=== PATIENT | female | born 1955 | race Caucasian/White ===

== ENCOUNTER → 2016-11-24 | Outpatient (CLI) | payer MEDICARE | LOC: RAD 18:25 | PROVIDERS: ATTEND Internal Medicine | DX: C82.38 Follicular lymphoma grade IIIa, lymph nodes of multiple sites (principal) | CPT/HCPCS: 78815; A9552 ==

== ENCOUNTER 2016-12-30 12:23 | Day surgery (SDC) | payer MEDICARE ==
[2016-12-23 10:32] LABS: HEMATOCRIT 43.1 % (36.0-47.0); HEMOGLOBIN 14.4 g/dL (12.0-15.5); HGB HCT DIFFERENCE 0.1; MEAN CORPUSCULAR HEMOGLOBIN 30.7 pg (27.0-33.4); MEAN CORPUSCULAR HGB CONC 33.4 g/dL (32.0-36.0); MEAN CORPUSCULAR VOLUME 92 fl (80-97); RED CELL DISTRIBUTION WIDTH 14.1 % (11.5-14.0); WHITE BLOOD COUNT 5.3 10^3/uL (4.0-10.5)
[2016-12-23 11:05] LABS: ANION GAP 13 (5-19); BLOOD UREA NITROGEN 16 mg/dL (7-20); CALCIUM 9.4 mg/dL (8.4-10.2); CARBON DIOXIDE 26 mmol/L (22-30); CHLORIDE 101 mmol/L (98-107); CREATININE RESULT 0.93 mg/dL (0.52-1.25); GLUCOSE 349 mg/dL (75-110); POTASSIUM 5.1 mmol/L (3.6-5.0); SODIUM 139.9 mmol/L (137-145)
--- NOTE | 2016-12-23 13:33 | EKG REPORT ---
SEVERITY:- ABNORMAL ECG - SINUS RHYTHM ANTERIOR INFARCT, AGE INDETERMINATE CONSIDER OLD INFERIOR MO. : Confirmed by: Reggie Rees MD 23-Dec-2016 13:33:02
[~2016-12-30 12:23] MED LIST: CEFAZOLIN 1 GM/D5W RTU 1 GM/50 ML RTUPB IV PRN; DEXTROSE 5%-1/2 NORMAL SALINE 1,000 ML IV PRN; LIDOCAINE 0.5% INJ-PF (5 MG/ML) 50 ML SDV INJ PRN; RINGERS SOLUTION,LACTATED 1,000 ML IV PRN
[2016-12-30] MEDS ORDERED: BUPIVACAINE HCL 0.25 % INJ/PF (2.5 MG/1 ML) 30 ML VIAL ONE (12:39)
[2016-12-30] MEDS ORDERED: BACITRACIN INJ 50,000 UNIT VIAL ONE (12:40)
[2016-12-30] MEDS ORDERED: LIDOCAINE 0.5% INJ-PF (5 MG/ML) 50 ML SDV ONE (12:40)
[2016-12-30 13:06] LABS: POTASSIUM 4.7 mmol/L (3.6-5.0)
[2016-12-30] MEDS ORDERED: MIDAZOLAM 2 MG/2 ML INJ ONE ×2 (13:40→13:41)
[2016-12-30] MEDS ORDERED: FENTANYL CITRATE INJ/PF 100 MCG/2 ML AMPUL ONE (13:40)
[2016-12-30] MEDS ORDERED: PROPOFOL INJ 200 MG/20 ML VIAL IV ONE ×2 (13:41→15:53)
[2016-12-30] MEDS ORDERED: DIPHENHYDRAMINE HCL 50 MG/ML VIAL IV PRN (14:16)
[2016-12-30] MEDS ORDERED: MORPHINE SULFATE 10 MG/ML INJ IV PRN (14:16)
[2016-12-30] MEDS ORDERED: OXYCODONE-ACETAMINOPHEN 5-325 MG TABLET PO PRN ×2 (14:16)
[2016-12-30] MEDS ORDERED: PROMETHAZINE HCL INJ 25 MG/1 ML VIAL IV PRN ×2 (14:16)
[2016-12-30] MEDS ORDERED: FENTANYL CITRATE INJ/PF 100 MCG/2 ML AMPUL IV PRN ×3 (14:16)
[2016-12-30] MEDS ORDERED: MEPERIDINE HCL/PF INJ 25 MG/1 ML DISP.SYRIN IV PRN (14:16)
--- NOTE | 2016-12-30 15:38 | PDOC DISCHARGE SUMMARY ---
Discharge Summary (SDC) - Discharge Final Diagnosis: #1 B-cell lymphoma. #2 follicular lymphoma. #3 increase body mass index. #4 diabetes mellitus type II. Date of Surgery: 12/30/16 Discharge Date: 12/30/16 Condition: Fair Treatment or Instructions: #1 activities within moderation encouraged. #2 follow up in my office by appointment in about 1 week. Call for appointment. #3 the wounds covered clean and dry until office visit. Instructed in use of negative pressure wound management system. #4 hold off on school/work until evaluation in office. #5 may shower in 48 hours, keep operated area as dry as possible. #6 discharge from ambulatory when ASU criteria met. #7 medications per medication reconciliation sheet. #8 Percocet by prescription.. Also may have one Percocet up to every 2 hours when necessary for pain greater than 4 out of 10 while in the ASU Prescriptions: Oxycodone HCl/Acetaminophen [Percocet 5-325 mg Tablet] 1 tab PO ASDIR PRN #15 tab PRN Reason: Discharge Diet: As Tolerated Respiratory Treatments at Home: Deep Breathing/Coughing Discharge Activity: Activity As Tolerated Report the Following to Your Physician Immediately: Shortness of Breath, Unusual Bleeding
[2016-12-30] MEDS ORDERED: MORPHINE SULFATE 10 MG/ML INJ ONE (15:51)
[2016-12-30] MEDS ORDERED: ACETAMINOPHEN 100 ML IV ONE (15:51)
--- NOTE | 2016-12-30 15:52 | Operative Report ---
Operative Report DATE OF SURGERY: 12/30/16 PREOPERATIVE DIAGNOSIS: #1 B-cell lymphoma. #2 follicular lymphoma. #3 increased body mass index. #4 diabetes mellitus type II. POSTOPERATIVE DIAGNOSIS: #1 B-cell lymphoma. Post ultrasound directed right groin lymph node biopsy. #2 follicular lymphoma. #3 increase body mass index. #4 diabetes mellitus type II. OPERATION: #1 Ultrasound directed needle localization of lymph node in right groin. #2 excision of lymph nodes in right groin on ultrasound guidance. #3 A - pressure wound management system was applied to this wound which is left less than 50 cm. CPT code 12089. SURGEON: BRUCE CRUZ NUTRITION EDUCATOR: none ANESTHESIA: LMAC TISSUE REMOVED OR ALTERED: Lymph nodes from right groin. COMPLICATIONS: None ESTIMATED BLOOD LOSS: 20 mL. INTRAOPERATIVE FINDINGS: Of a very large pannus and very thick layer of adiposity. Was actually palpable. Ultrasound evaluation did reveal an enlarged lymph node 17.8 x 7.2 mm in the very deep subcutaneous tissues, just above the blood vessels and medial. This was needle localized, dissected and sent for gross interpretation. A second lymph node was palpable although smaller and medial to the femoral vein.. This was dissected out and also submitted for pathology. This patient has a history of B-cell lymphoma and follicular lymphoma. She has a had a PET scan recently which showed a suspicious nodule in the right groin. It was not palpable however an enlarged lymph node was identified on ultrasound needle localization directed biopsies therefore done today. With a high confidence of obtaining the involved node. Not 100% however and should this fail to confirm the PET scan finding, another PET scan and her other needle directed biopsy might be indicated. This was discussed with the patient beforehand. Dr. Crescencio Houston evaluated both and touch preps done. He feels a reasonable confidence that involved lymph nodes, if any were obtained. He will do flow cytometry and understands the underlying history and pathology. PROCEDURE: PROCEDURE: The right groin area was prepared with [chlorhexidine] and draped out with sterile linen. After the"universal time-out", in which it was confirmed that the patient [did receive antibiotic], the procedure commenced. The patient was appropriately anesthetized. A steriley sheathed ultrasound transducer was used to evaluate the area and the lymph node previously identified in office again identified. Measuring 17.8 x 7.2 mm and of the deep subcutaneous tissues, medial to the major vessels. The lesion was sketched in marking ink, as well as the proposed incision. A Kopan's needle was now used on the real-time ultrasound guidance to impale the lymph node with the Kopan's wire. Hardcopy documentation preserved. A dilute solution of local anesthesia was generously infiltrated in the skin and subcutaneous tissues above and around the mass. An incision was made transversely . This went through to the subcutaneous tissues. Dissection now proceeded in the subcutaneous tissue circumferentially around the mass and then finally posterior to it. In reference to the Kopan's needle which was grasped with a hemostat. The mass was grasped with. Meticulous hemostasis was done and any branching into the lymph node was clipped. This is in the hopes of reducing the risk of lymphocele or lymphatic drainage. In this way the entire mass was removed and submitted for gross interpretation. The wound was palpated and the ultrasound used to evaluate for any other lymph nodes. Another pertinent lymph node was noted the level of the blood vessels and slightly medial to them. Again local anesthesia was infiltrated at this was dissected out again taking care to clip all ingress and egress of the lymph node. The lymph node was also submitted for gross interpretation. . Meticulous hemostasis was secured in the wound. This was done using [ cautery and also interrupted sutures of 3-0 PDS] and clips. [The wound was irrigated once more with sterile saline solution]. The wound was now closed using deep sutures of 3-0 PDS. This was done to obliterate any space. Single layer of interrupted vertical mattress sutures was used for skin closure. These were of 3-0 PDS]. A pressure wound management system was now applied to the wound. A sterile dressing was applied and the procedure concluded.
[2016-12-30] MEDS ORDERED: OXYCODONE-ACETAMINOPHEN 5-325 MG TABLET ONE (17:04)
[2016-12-30 18:37] VITALS: BP 132/79
== END 2016-12-30 18:25 | disposition home or self-care (01) ==
LOC: OROUT 12:23
PROVIDERS: ATTEND Surgery
PROC: BH49ZZZ Ultrasonography of Abdominal Wall (ICD-10-PCS; 2016-12-30)
PROC: 07BH3ZX Excision of Right Inguinal Lymphatic, Percutaneous Approach, Diagnostic (ICD-10-PCS; principal; 2016-12-30 14:00)
DX: C85.10 Unspecified B-cell lymphoma, unspecified site (principal); C82.90 Follicular lymphoma, unspecified, unspecified site; E11.9 Type 2 diabetes mellitus without complications; L40.50 Arthropathic psoriasis, unspecified; F32.9 Major depressive disorder, single episode, unspecified; I10 Essential (primary) hypertension; Z79.4 Long term (current) use of insulin; Z79.84 Long term (current) use of oral hypoglycemic drugs; Z79.899 Other long term (current) drug therapy
CPT/HCPCS: 93005; 36415 ×2; 88185 ×15; 88184; 82947; 84132; 85027; 80048; 88233; 88262; 88305 ×2; 88329; 71020; 93010; 38505; J2250; J3490 ×2; J0690; J3010; J2270; A9270; J2704; J0131; 400

== ENCOUNTER 2017-11-10 13:58 | Inpatient (IN) | payer MEDICARE ==
[2017-11-10] MEDS ORDERED: NORMAL SALINE 1000 ML 1,000 ML IV ONE ×2 (14:24→16:31)
--- NOTE | 2017-11-10 14:27 | ER Document Report ---
ED General - General Stated Complaint: WEAKNESS Time Seen by Provider: 11/10/17 14:08 Notes: Patient is here because of weakness. She says that she is been "sick" and has not been unable to stand for the past 2 days. She says that she has been laying on the floor of those 2 days. She is only eaten an apple today and not sure if anything yesterday. She lives with her , he was unable to help her stand up. He finally insisted that they called EMS to bring the patient here. Patient does not have any complaints of neurologic deficits that would be due to a stroke. Denies any pains. She is vomited 3 times and had some diarrhea a couple of days before she got weak like now. Denies abdominal pains or chest pains or any cough or cold or chest congestion or shortness of breath. Denies any UTI symptoms. Has not noted any fever. Patient is an insulin-dependent diabetic. Patient has a history of lymphoma treated with chemotherapy 7 years ago. Does not recall being told that she was cancer free, but has not had any follow-ups. PMH: Appendectomy, tubal ligation, IDDM, high cholesterol, psoriasis. TRAVEL OUTSIDE OF THE [place] IN LAST 30 DAYS: No - Related Data Allergies/Adverse Reactions: lisinopril Allergy (Severe, Verified 12/23/16 09:33) cough Past Medical History - Social History Smoking Status: Unknown if Ever Smoked Cigarette use (# per day): No Family History: Reviewed & Not Pertinent - Past Medical History Cardiac Medical History: Reports: Hx Hypertension - Has a prescription for lisinopril but does not take it unless she feels lik Pulmonary Medical History: Denies: Hx Asthma, Hx Bronchitis, Hx COPD, Hx Pneumonia Neurological Medical History: Denies: Hx Cerebrovascular Accident, Hx Seizures Endocrine Medical History: Reports: Hx Diabetes Mellitus Type 1 Malignancy Medical History: Reports: Hx Lymphoma Musculoskeltal Medical History: Reports Hx Arthritis - generalized Past Surgical History: Reports: Hx Appendectomy, Hx Tubal Ligation - Immunizations Hx Diphtheria, Pertussis, Tetanus Vaccination: Yes Hx Pneumococcal Vaccination: 08/25/13 Review of Systems - Review of Systems Notes: REVIEW OF SYSTEMS: CONSTITUTIONAL : Denies fever. Complains of generalized weakness, no unilateral weakness. EENT: Denies eye, ear, nose or mouth or throat pain or other symptoms. CARDIOVASCULAR: Denies chest pain. RESPIRATORY: Denies cough, chest congestion, or shortness of breath. GASTROINTESTINAL: Denies abdominal pain but had diarrhea 3 days ago, a couple of times, and then vomited 3 or 4 times in the past couple of days. GENITOURINARY: Denies difficulty or painful urinating, urinary frequency, blood in urine. MUSCULOSKELETAL: Denies back or neck pain. Denies joint pain or swelling. SKIN: Denies rash or skin lesions. Chronic erythematous rash around both ankles. NEUROLOGICAL: Denies LOC or altered mental status. Denies headache. Complains of generalized weakness and inability to stand or walk. Denies sensory loss or motor deficits. ALL OTHER SYSTEMS REVIEWED AND NEGATIVE. Physical Exam - Vital signs Vitals: BP 133/71 H 11/10/17 14:18 Interpretation: Normal - Notes Notes: PHYSICAL EXAMINATION: GENERAL: Well-appearing, in no acute distress. He knows that it is Friday. No she lives with her . No she is in the hospital. Says her doctor is Dr. Luz. HEAD: Atraumatic, normocephalic. EYES: Pupils equal round and reactive to light, extraocular movements intact. ENT: oropharynx clear without exudates. Moist mucous membranes. NECK: Normal range of motion, supple. LUNGS: Breath sounds clear and equal bilaterally. HEART: Regular rate and rhythm without murmurs. ABDOMEN: Soft, nontender. No guarding or rebound. No masses. BACK: No tenderness throughout entire back. EXTREMITIES: Normal range of motion without pain. Amputation fourth toe of left foot. Dark colored eschars on the bottom of each great toe. No significant infection of the lower legs. NEUROLOGICAL: Normal speech, normal gait. Normal sensory, motor, and reflex exams. Awake, alert, and oriented x3. Cranial nerves normal. PSYCH: Normal mood, normal affect. SKIN: Warm, dry, with erythematous rash around both ankles, the right slightly more so than the left. Course - Re-evaluation Re-evalutation: 11/10/17 15:44 Labs came back with a slightly elevated lactate level at 3.2. Total CPK was 2350, likely from being on the floor for a couple of days. Her white cell count is 18,700 with 79 polys and 15 bands. Chest x-ray negative. Urinalysis not very dramatic. Patient has been cultured all over and I am giving her a liter of saline IV. She is also getting a gram of Rocephin IV. I spoke with Dr. Luz, he will admit the patient to [facility]. - Vital Signs Vital signs: Temp Pulse Resp BP Pulse Ox 98.2 F 92 22 H 134/68 H 95 11/10/17 23:33 11/10/17 23:33 11/10/17 23:33 11/10/17 23:33 11/10/17 23:33 - Laboratory Result Diagrams: 11/10/17 14:50 11/10/17 14:50 Laboratory results interpreted by me: 11/10/17 11/10/17 11/10/17 14:50 14:50 14:50 WBC 18.7 H RDW 14.1 H Seg Neuts % (Manual) 79 H Band Neutrophils % 15 H Lymphocytes % (Manual) 2 L Abs Neuts (Manual) 17.6 H Sodium 133.6 L Chloride 97 L BUN 21 H Est GFR (Non-Af Amer) 51 L Glucose 195 H Lactic Acid AST 77 H Creatine Kinase 2350 H CK-MB (CK-2) 8.16 H Total Protein 5.7 L Albumin 3.2 L Urine Protein Urine Glucose (UA) Urine Ketones Urine Blood 11/10/17 11/10/17 14:50 15:06 WBC RDW Seg Neuts % (Manual) Band Neutrophils % Lymphocytes % (Manual) Abs Neuts (Manual) Sodium Chloride BUN Est GFR (Non-Af Amer) Glucose Lactic Acid 3.2 H AST Creatine Kinase CK-MB (CK-2) Total Protein Albumin Urine Protein >=500 H Urine Glucose (UA) >=500 H Urine Ketones TRACE H Urine Blood LARGE H - Diagnostic Test Radiology reviewed: Image reviewed, Reports reviewed - CT scan of the brain is normal. Radiology results interpreted by me: 11/10/17 16:29 Chest x-ray is normal. Slight elevation of the right hemidiaphragm. - EKG Interpretation by [place] EKG shows normal: Sinus rhythm Rate: Normal - At 99. Rhythm: NSR P Waves: Other - Old anterior/septal infarct. Old inferior infarct. Critical Care Note - Critical Care Note Total time excluding time spent on procedures (mins): 40 Discharge - Discharge Clinical Impression: Sepsis, Dehydration, Prerenal azotemia, Elevated CPK Condition: Serious Disposition: ADMITTED INPATIENT Admitting Provider: [facility] Unit Admitted: IMCU Sepsis - Sepsis Documentation Sepsis Patient: Yes - Vital Signs Vitals: Temp Pulse Resp BP Pulse Ox 98.2 F 92 22 H 134/68 H 95 11/10/17 23:33 11/10/17 23:33 11/10/17 23:33 11/10/17 23:33 11/10/17 23:33 Interpretation: Normal - Cardiovascular Peripheral Pulse Strength: Normal Capillary refill: < 3 seconds Rhythm: Regular Heart Sounds: Normal auscultation - Respiratory Breath Sounds: Clear Respiratory Status: No respiratory distress - Skin Skin Color: Normal
[2017-11-10 14:59] LABS: VENOUS BLOOD BASE EXCESS 2.1 mmol/L; VENOUS BLOOD HCO3 27.2 mmol/L (20-32); VENOUS BLOOD PCO2 44.1 mmHg (35-63); VENOUS BLOOD PH 7.41 (7.30-7.42)
[2017-11-10 15:02] LABS: HEMATOCRIT 41.2 % (36.0-47.0); HEMOGLOBIN 13.7 g/dL (12.0-15.5); MEAN CORPUSCULAR HGB CONC 33.3 g/dL (32.0-36.0); MEAN CORPUSCULAR VOLUME 90 fl (80-97); PLATELET COUNT 253 10^3/uL (150-450); RED BLOOD COUNT 4.57 10^6/uL (3.72-5.28); RED CELL DISTRIBUTION WIDTH 14.1 % (11.5-14.0); WHITE BLOOD COUNT 18.7 10^3/uL (4.0-10.5)
[2017-11-10 15:21] LABS: ALANINE AMINOTRANSFERASE 34 U/L (9-52); ALBUMIN 3.2 g/dL (3.5-5.0); ALKALINE PHOSPHATASE 46 U/L (38-126); ANION GAP 10 (5-19); ASPARTATE AMINO TRANSFERASE 77 U/L (14-36); BILIRUBIN,DIRECT 0.3 mg/dL (0.0-0.4); BILIRUBIN,TOTAL 0.4 mg/dL (0.2-1.3); BLOOD UREA NITROGEN 21 mg/dL (7-20); CALCIUM 8.6 mg/dL (8.4-10.2); CARBON DIOXIDE 27 mmol/L (22-30); CHLORIDE 97 mmol/L (98-107); GLUCOSE 195 mg/dL (75-110); LIPASE 95.9 U/L (23-300); SODIUM 133.6 mmol/L (137-145); TOTAL PROTEIN 5.7 g/dL (6.3-8.2)
[2017-11-10 15:28] LABS: CREATINE KINASE 2350 U/L (30-135)
[2017-11-10 15:31] LABS: ABSOLUTE LYMPHOCYTES# (MANUAL) 0.6 10^3/uL (0.5-4.7); ABSOLUTE MONOCYTES # (MANUAL) 0.6 10^3/uL (0.1-1.4); ABSOLUTE NEUTROPHILS# (MANUAL) 17.6 10^3/uL (1.7-8.2); BASOPHILS % (MANUAL) 0 % (0-2); CREATINE KINASE MB 8.16 ng/mL (<4.55); EOSINOPHILS % (MANUAL) 0 % (0-6); LYMPHOCYTES % (MANUAL) 2 % (13-45); MONOCYTES % (MANUAL) 3 % (3-13); SEGMENTED NEUTROPHILS % (MAN) 79 % (42-78); TOTAL CELLS COUNTED 100
[2017-11-10 15:32] LABS: APPEARANCE,URINE SLIGHTLY-CLOUDY; BILIRUBIN,URINE NEGATIVE (NEGATIVE); COLOR,URINE YELLOW; GLUCOSE, URINE >=500 mg/dL (NEGATIVE); KETONES,URINE TRACE mg/dL (NEGATIVE); LEUKOCYTE ESTERASE,URINE NEGATIVE (NEGATIVE); NITRITE,URINE NEGATIVE (NEGATIVE); PROTEIN,URINE >=500 mg/dL (NEGATIVE); URINE SPECIFIC GRAVITY 1.024; UROBILINOGEN,URINE NEGATIVE mg/dL (<2.0)
[2017-11-10 15:32] LABS: BAND NEUTROPHILS % (MANUAL) 15 % (3-5); HYPOCHROMASIA SLIGHT; PLATELET COMMENT ADEQUATE; POLYCHROMASIA SLIGHT; TOXIC GRANULATION 2+; TOXIC VACUOLATION PRESENT
--- NOTE | 2017-11-10 15:32 | RADIOLOGY REPORT (SQ) ---
EXAM DESCRIPTION: CHEST SINGLE VIEW COMPLETED DATE/TIME: 11/10/2017 3:25 pm REASON FOR STUDY: Generalized weakness, Hx lymphoma treated COMPARISON: Two-view chest 12/23/2016 PET-CT 11/24/2016 EXAM PARAMETERS: NUMBER OF VIEWS: One view. TECHNIQUE: Single frontal radiographic view of the chest acquired. RADIATION DOSE: NA LIMITATIONS: None. FINDINGS: LUNGS AND PLEURA: No opacities, masses or pneumothorax. No pleural effusion. MEDIASTINUM AND HILAR STRUCTURES: No masses. Contour normal. HEART AND VASCULAR STRUCTURES: Heart normal in size. Normal vasculature. BONES: No acute findings. HARDWARE: None in the chest. OTHER: No other significant finding. IMPRESSION: NO ACUTE RADIOGRAPHIC FINDING IN THE CHEST. TECHNICAL DOCUMENTATION: JOB ID: [id number] [employer]- All Rights Reserved Reading location - IP/workstation name: [email or web address]
[2017-11-10 15:33] LABS: TROPONIN I 0.049 ng/mL
[2017-11-10] MEDS ORDERED: CEFTRIAXONE INJ 1000 MG VIAL IV ONE (15:35)
--- NOTE | 2017-11-10 16:03 | RADIOLOGY REPORT (SQ) ---
EXAM DESCRIPTION: CT HEAD WITHOUT COMPLETED DATE/TIME: 11/10/2017 3:52 pm REASON FOR STUDY: Unable to stand, week COMPARISON: None. TECHNIQUE: Axial images acquired through the brain without intravenous contrast. Images reviewed wi th bone, brain and subdural windows. Images stored on PACS. All CT scanners at this facility use dose modulation, iterative reconstruction, and/or weight based d osing when appropriate to reduce radiation dose to as low as reasonably achievable (ALARA). [facility]: Dose Right [facility]: CareDose [facility]: Dose Right [facility]: Teradose 4D [facility]: Smart Funidelia RADIATION DOSE: CT Rad equipment meets quality standard of care and radiation dose reduction techniq ues were employed. CTDIvol: 64.6 mGy. DLP: 1034 mGy-cm. LIMITATIONS: None. FINDINGS: VENTRICLES: Normal size and contour. The cisterns are patent. CEREBRUM: No masses. No hemorrhage. No midline shift. No evidence for acute infarction. Normal gra y/white matter differentiation. No areas of low density in the white matter. CEREBELLUM: No masses. No hemorrhage. No alteration of density. No evidence for acute infarction. EXTRAAXIAL SPACES: No fluid collections. No masses. ORBITS AND GLOBE: No intra- or extraconal masses. Normal contour of globe without masses. CALVARIUM: No fracture. PARANASAL SINUSES: Slight mucoperiosteal thickening involving the bilateral maxillary sinuses and sl ight to mild ethmoid sinus mucosal thickening. SOFT TISSUES: No mass or hematoma. OTHER: Mild atherosclerotic changes involving the cavernous portion of the internal carotid arteries . Atherosclerotic changes involving the intracranial portion of the right vertebral artery. IMPRESSION: NORMAL BRAIN CT WITHOUT CONTRAST. EVIDENCE OF ACUTE STROKE: NO COMMENT: Quality ID # [id number]: Final reports with documentation of one or more dose reduction techniques (e.g., Automated exposure control, adjustment of the mA and/or kV according to patient size, use of iterative reconstruction technique) TECHNICAL DOCUMENTATION: JOB ID: [id number] [employer]- All Rights Reserved Reading location - IP/workstation name: [email or web address]
[2017-11-10] MEDS ORDERED: LEVETIRACETAM 1500 MG/NACL-ISO 1,500 MG/100 ML RTUPB IV ONE (16:34)
[2017-11-10] MEDS ORDERED: LEVETIRACETAM 500 MG/NACL-ISO 500 MG/100 ML RTUPB IV ONE (16:38)
[2017-11-10] MEDS ORDERED: LEVETIRACETAM 500 MG/NACL-ISO 500 MG/100 ML RTUPB IV SCH (16:45)
[2017-11-10] MEDS ORDERED: ACETAMINOPHEN 325 MG TABLET PO PRN (17:07)
[2017-11-10] MEDS ORDERED: DOCUSATE SODIUM 100 MG CAPSULE PO PRN (17:07)
[2017-11-10] MEDS ORDERED: ONDANSETRON HCL INJ/PF 4 MG/2 ML SDV IV PRN (17:07)
[2017-11-10] MEDS ORDERED: GLUCAGON,HUMAN RECOMB 1 MG INJ IM PRN (17:37)
[2017-11-10] MEDS ORDERED: DEXTROSE 50%-WATER SYRINGE 25 GM/50 ML DOSE IV PRN (17:37)
[2017-11-10] MEDS ORDERED: DEXTROSE 40% GEL 15 GM TUBE X 2 PO PRN (17:37)
[2017-11-10] MEDS ORDERED: DEXTROSE 40% GEL 15 GM TUBE PO PRN (17:37)
[2017-11-10] MEDS ORDERED: DEXTROSE 50%-WATER SYRINGE 12.5 GM/25 ML DOSE IV PRN (17:37)
--- NOTE | 2017-11-10 17:37 | PDOC H&P ---
History of Present Illness Admission Date/PCP: 11/10/17 15:58 CRYSTAL MCCURDY Patient complains of: Gen. body weakness and has been lying on the floor for 2 days; had vomiting and diarrhea a couple days before onset of weakness. History of Present Illness: MARIA DEL ROSARIO ANDERSEN is a 62 year old female Past Medical History Cardiac Medical History: Reports: Hypertension - Has a prescription for lisinopril but does not take it unless she feels lik Denies: Coronary Artery Disease, Myocardial Infarction Pulmonary Medical History: Denies: Asthma, Bronchitis, Chronic Obstructive Pulmonary Disease (COPD), Pneumonia Neurological Medical History: Denies: Seizures Endocrine Medical History: Reports: Diabetes Mellitus Type 1 Malignancy Medical History: Reports: Lymphoma Musculoskeltal Medical History: Reports: Arthritis - generalized Hematology: Denies: Anemia Past Surgical History Past Surgical History: Reports: Appendectomy, Tubal Ligation Social History Smoking Status: Unknown if Ever Smoked Family History Family History: Reviewed & Not Pertinent Parental Family History Reviewed: Yes Children Family History Reviewed: Yes Sibling(s) Family History Reviewed.: Yes Medication/Allergy Allergies/Adverse Reactions: lisinopril Allergy (Severe, Verified 12/23/16 09:33) cough Review of Systems All systems: as per PMH Constitutional: PRESENT: anorexia, weakness Eyes: PRESENT: as per HPI Ears: PRESENT: as per HPI Nose, Mouth, and Throat: PRESENT: as per HPI Breasts: PRESENT: as per HPI Cardiovascular: PRESENT: as per HPI Respiratory: PRESENT: as per HPI Gastrointestinal: PRESENT: as per HPI, diarrhea, vomiting Genitourinary: PRESENT: as per HPI Musculoskeletal: PRESENT: as per HPI Integumentary: PRESENT: as per HPI Neurological: PRESENT: as per HPI, weakness Psychiatric: PRESENT: as per HPI Endocrine: PRESENT: as per HPI Physical Exam Vital Signs: Temp Pulse Resp BP Pulse Ox 100.1 F 33 H 110/63 95 11/10/17 16:15 11/10/17 16:12 11/10/17 16:12 11/10/17 16:12 General appearance: PRESENT: no acute distress, cooperative, morbidly obese, well-developed, well-nourished Head exam: PRESENT: atraumatic, normocephalic Eye exam: PRESENT: EOMI, PERRLA Ear exam: PRESENT: normal external ear exam, TM's normal bilaterally Mouth exam: PRESENT: dry mucosa, neck supple, tongue midline Neck exam: PRESENT: full ROM Respiratory exam: PRESENT: clear to auscultation hattie, symmetrical Cardiovascular exam: PRESENT: +S1, +S2 Pulses: PRESENT: +2 pedal pulses bilateral GI/Abdominal exam: PRESENT: normal bowel sounds, soft Rectal exam: PRESENT: deferred Musculoskeletal exam: PRESENT: full ROM Neurological exam: PRESENT: alert, awake, oriented to person, oriented to place , oriented to time Psychiatric exam: PRESENT: normal mood Results Impressions: Chest X-Ray 11/10/17 14:20 IMPRESSION: NO ACUTE RADIOGRAPHIC FINDING IN THE CHEST. Head CT 11/10/17 15:32 IMPRESSION: NORMAL BRAIN CT WITHOUT CONTRAST. EVIDENCE OF ACUTE STROKE: NO Assessment & Plan - Diagnosis (1) Rhabdomyolysis Qualifiers: Encounter type: initial encounter Is this a current diagnosis for this admission?: Yes Plan: Ct with IV fluids normal saline with 20 MEQ of KCL at 125 cc/hr; strict input/ out put chart; Monitor chemistries daily. (2) Gross hematuria Is this a current diagnosis for this admission?: Yes Plan: Ct with IV fluids; F/u renal US and possibly get urology consult. (3) Leukocytosis, unspecified Qualifiers: Leukocytosis type: unspecified Qualified Code(s): D72.829 - Elevated white blood cell count, unspecified Is this a current diagnosis for this admission?: Yes Plan: Ct with Rocephin 1 G daily IV; F/u daily CBC, blood and urine cultures. (4) Diabetes mellitus type 2 in obese Is this a current diagnosis for this admission?: Yes Plan: Ct with slidding scale with humalog insulin [facility] protocol; Hold Lantus 40 iu qhs for now till she starts eating well. 1800 calorie ADA diet. (5) Hypertension Qualifiers: Hypertension type: essential hypertension Qualified Code(s): I10 - Essential (primary) hypertension Is this a current diagnosis for this admission?: Yes Plan: Ct with Losartan 25 mg qd po; 2 g sodium diet. (6) Osteoarthritis Qualifiers: Osteoarthritis location: unspecified site Is this a current diagnosis for this admission?: Yes Plan: Ct with [place] 5/325 1 BID po prn; Tylenol 650 mg q6h prn po. (7) Rhinitis, allergic Qualifiers: Allergic rhinitis trigger: unspecified Is this a current diagnosis for this admission?: Yes Plan: Ct with Claritin 10 mg qd pO; Flonase nasal spray 1 daily. (8) Vitamin D deficiency Is this a current diagnosis for this admission?: Yes Plan: VCT with Vitamin D 27981qy weekly PO. (9) Depression Is this a current diagnosis for this admission?: Yes Plan: Ct with Paxil 20 mg qd PO; Trazodone 100 mg qhs po. (10) Anxiety disorder Is this a current diagnosis for this admission?: Yes Plan: Ct with Clonazepam 1 mg qhs po. (11) DVT prophylaxis Is this a current diagnosis for this admission?: Yes Plan: Ct with SCD; Hold Lovenox due to gross hematuria. - Time Time Spent: 30 to 50 Minutes Medications reviewed and adjusted accordingly: Yes Anticipated discharge: Home Within: within 72 hours - Inpatient Certification Medical Necessity: Failure to Improve With Outpatient Therapy, Significant Comorbidiites Make Outpatient Treatment Too Risky, Need Close Monitoring Due to Risk of Patient Decompensation, Need For IV Fluids, Need For Continuous Telemetry Monitoring, Need for IV Antibiotics, Risk of Complication if Not Cared For in Hospital, Risk of Diagnosis Which Will Require Inpatient Eval/Care/ Monitoring
[2017-11-10] MEDS: POTASSI CL 20 MEQ/NS 1L 1,000 ML IV PRN (18:36)
[2017-11-10] MEDS ORDERED: INSULIN GLARGINE,HUM.REC.ANLOG 1,000 UNIT/10 ML UNIT SUBCUT ONE (20:02)
[2017-11-10] MEDS ORDERED: INSULIN LISPRO 100 UNIT/ML 3 ML VIAL ONE (20:03)
--- NOTE | 2017-11-10 22:45 | RADIOLOGY REPORT (SQ) ---
EXAM DESCRIPTION: [employer] COMPLETED DATE/TIME: 11/10/2017 10:21 pm REASON FOR STUDY: Gross hematuria COMPARISON: Limited by patient position and patient's inability to change position. TECHNIQUE: Dynamic and static grayscale images acquired of the kidneys and bladder and recorded on P ACS. Additional selected color Doppler and spectral images recorded. LIMITATIONS: None. FINDINGS: RIGHT KIDNEY: Normal size, 13.6 cm. No obvious calcifications. No hydronephrosis or hyd roureter. No obvious masses. LEFT KIDNEY: Normal size, 13.5 cm. No obvious masses. No hydronephrosis. No obvious calcification s. BLADDER: Not seen. OTHER FINDINGS: No other significant finding. IMPRESSION: Very limited study with no obvious abnormality or explanation for the gross hematuria. TECHNICAL DOCUMENTATION: JOB ID: [id number] [employer]- All Rights Reserved Reading location - IP/workstation name: [email or web address]
[2017-11-10] MEDS: ZOLPIDEM TARTRATE 5 MG TABLET PO SCH (23:39)
[2017-11-10] MEDS: CLONAZEPAM 1 MG TABLET PO SCH (23:39)
--- NOTE | 2017-11-10 23:46 | EKG REPORT ---
SEVERITY:- ABNORMAL ECG - SINUS RHYTHM INFERIOR INFARCT, AGE INDETERMINATE ANTERIOR INFARCT, AGE INDETERMINATE : Confirmed by: Torie Toribio 10-Nov-2017 23:45:10
[2017-11-11] MEDS: POTASSI CL 20 MEQ/NS 1L 1,000 ML IV PRN ×2 (02:48→12:03)
[2017-11-11 06:32] LABS: ABSOLUTE LYMPHOCYTES (AUTO) 1.2 10^3/uL (0.5-4.7); ABSOLUTE MONOCYTES (AUTO) 0.9 10^3/uL (0.1-1.4); ABSOLUTE NEUT (AUTO) 12.7 10^3/uL (1.7-8.2); BASOPHILS % (AUTO) 0.1 % (0-2); HEMATOCRIT 38.1 % (36.0-47.0); HEMOGLOBIN 12.6 g/dL (12.0-15.5); LYMPHOCYTES % (AUTO) 8.4 % (13-45); MEAN CORPUSCULAR HGB CONC 33.2 g/dL (32.0-36.0); MEAN CORPUSCULAR VOLUME 91 fl (80-97); MONOCYTES % (AUTO) 6.1 % (3-13); PLATELET COUNT 224 10^3/uL (150-450); RED BLOOD COUNT 4.21 10^6/uL (3.72-5.28); RED CELL DISTRIBUTION WIDTH 14.4 % (11.5-14.0); SEGMENTED NEUTROPHILS % (AUTO) 85.4 % (42-78); TOTAL CELLS COUNTED % (AUTO) 100 %; WHITE BLOOD COUNT 14.9 10^3/uL (4.0-10.5)
[2017-11-11] MEDS: LANSOPRAZOLE 30 MG TAB.RAP.DR PO SCH (06:51)
[2017-11-11 07:02] LABS: ALANINE AMINOTRANSFERASE 38 U/L (9-52); ALBUMIN 2.8 g/dL (3.5-5.0); ALKALINE PHOSPHATASE 49 U/L (38-126); ANION GAP 7 (5-19); ASPARTATE AMINO TRANSFERASE 65 U/L (14-36); BILIRUBIN,DIRECT 0.4 mg/dL (0.0-0.4); BILIRUBIN,TOTAL 0.4 mg/dL (0.2-1.3); BLOOD UREA NITROGEN 21 mg/dL (7-20); CALCIUM 7.6 mg/dL (8.4-10.2); CARBON DIOXIDE 25 mmol/L (22-30); CHLORIDE 102 mmol/L (98-107); CHOLESTEROL 215.41 mg/dL (0-200); CREATINE KINASE 1190 U/L (30-135); GLUCOSE 173 mg/dL (75-110); POTASSIUM 4.5 mmol/L (3.6-5.0); SODIUM 133.8 mmol/L (137-145); TOTAL PROTEIN 5.4 g/dL (6.3-8.2); TRIGLYCERIDES 263 mg/dL (<150)
[2017-11-11 07:13] LABS: DIRECT LDL 97 mg/dL (<100)
[2017-11-11 07:15] LABS: VLDL CHOLESTEROL 52.6 mg/dL (10-31)
[2017-11-11] MEDS ORDERED: INSULIN LISPRO 100 UNIT/ML 3 ML VIAL SUBCUT PRN (08:00)
[2017-11-11] MEDS: PAROXETINE HCL 20 MG TABLET PO SCH (09:21)
[2017-11-11] MEDS: HYDROCODONE/ACETAMINOPHEN 5-325 MG TABLET PO PRN ×2 (09:21→21:47)
[2017-11-11] MEDS: LOSARTAN POTASSIUM 25 MG TABLET PO SCH (09:22)
[2017-11-11] MEDS: LORATADINE 10 MG TABLET PO SCH (09:22)
[2017-11-11] MEDS: INSULIN LISPRO 100 UNIT/ML 3 ML VIAL SUBCUT PRN ×2 (09:47→12:19)
[2017-11-11] MEDS ORDERED: CEFTRIAXONE 1 GM/D5W RTU 1 GM/50 ML RTUPB IV SCH (10:00)
[2017-11-11] MEDS ORDERED: PIPERACILLIN SODIUM/TAZOBACTAM 3.375 GM in NORMAL SALINE 100 ML IV SCH (12:00)
[2017-11-11] MEDS: FLUTICASONE NASAL SPRAY 50 MCG/SPRY 120 SPRAY/16 GM NASL SCH (12:03)
[2017-11-11] MEDS: PIPERACILLIN SODIUM/TAZOBACTAM 3.375 GM in NORMAL SALINE 100 ML IV SCH ×3 (12:03→23:12)
--- NOTE | 2017-11-11 13:00 | PDOC PROGRESS REPORT ---
Subjective Progress Note for:: 11/11/17 Subjective:: She is doing much better. Her appetite is improving. Her CK has decreased to 1190 and WBC decreased to 14.9. Her Blood culture grew Gram positive cocci, so will switch her to Zosyn and discontinue Rocephin. Her Renal US did not reveal any abnormality. Reason For Visit: RHABDOMYOLYSIS/GROSS HEMATURIA/LEUKOCYTOSIS Physical Exam Vital Signs: Temp Pulse Resp BP Pulse Ox 99.8 F 95 18 120/58 L 97 11/11/17 07:35 11/11/17 07:35 11/11/17 07:35 11/11/17 07:35 11/11/17 07:35 Intake & Output 11/10/17 11/11/17 11/12/17 06:59 06:59 06:59 Intake Total 1250 Output Total 450 Balance 800 Weight 108.5 kg General appearance: PRESENT: no acute distress, cooperative, obese, well- developed, well-nourished Head exam: PRESENT: atraumatic, normocephalic Eye exam: PRESENT: EOMI, PERRLA Ear exam: PRESENT: normal external ear exam, TM's normal bilaterally Mouth exam: PRESENT: neck supple, tongue midline Neck exam: PRESENT: full ROM Respiratory exam: PRESENT: clear to auscultation hattie, symmetrical Cardiovascular exam: PRESENT: +S1, +S2 Pulses: PRESENT: +2 pedal pulses bilateral GI/Abdominal exam: PRESENT: normal bowel sounds, soft Rectal exam: PRESENT: deferred Extremities exam: PRESENT: full ROM Musculoskeletal exam: PRESENT: full ROM Neurological exam: PRESENT: alert, awake, oriented to person, oriented to place , oriented to time Psychiatric exam: PRESENT: normal mood Results Laboratory Results: 11/11/17 05:55 11/11/17 05:55 11/10/17 11/11/17 11/11/17 19:15 05:55 05:55 WBC 14.9 H RBC 4.21 Hgb 12.6 Hct 38.1 MCV 91 MCH 30.0 MCHC 33.2 RDW 14.4 H Plt Count 224 Seg Neutrophils % 85.4 H Lymphocytes % 8.4 L Monocytes % 6.1 Eosinophils % 0.0 Basophils % 0.1 Absolute Neutrophils 12.7 H Absolute Lymphocytes 1.2 Absolute Monocytes 0.9 Absolute Eosinophils 0.0 Absolute Basophils 0.0 Sodium 133.8 L Potassium 4.5 Chloride 102 Carbon Dioxide 25 Anion Gap 7 BUN 21 H Creatinine 0.97 Est GFR ( Amer) > 60 Est GFR (Non-Af Amer) 58 L Glucose 173 H Lactic Acid 2.0 Calcium 7.6 L Total Bilirubin 0.4 AST 65 H ALT 38 Alkaline Phosphatase 49 Total Protein 5.4 L Albumin 2.8 L Triglycerides 263 H Cholesterol 215.41 H LDL Cholesterol Direct 97 VLDL Cholesterol 52.6 H HDL Cholesterol 31 L TSH 11/11/17 05:55 WBC RBC Hgb Hct MCV MCH MCHC RDW Plt Count Seg Neutrophils % Lymphocytes % Monocytes % Eosinophils % Basophils % Absolute Neutrophils Absolute Lymphocytes Absolute Monocytes Absolute Eosinophils Absolute Basophils Sodium Potassium Chloride Carbon Dioxide Anion Gap BUN Creatinine Est GFR ( Amer) Est GFR (Non-Af Amer) Glucose Lactic Acid Calcium Total Bilirubin AST ALT Alkaline Phosphatase Total Protein Albumin Triglycerides Cholesterol LDL Cholesterol Direct VLDL Cholesterol HDL Cholesterol TSH 2.82 11/11/17 05:55 Creatine Kinase 1190 H Impressions: Renal Ultrasound 11/10/17 00:00 IMPRESSION: Very limited study with no obvious abnormality or explanation for the gross hematuria. Chest X-Ray 11/10/17 14:20 IMPRESSION: NO ACUTE RADIOGRAPHIC FINDING IN THE CHEST. Head CT 11/10/17 15:32 IMPRESSION: NORMAL BRAIN CT WITHOUT CONTRAST. EVIDENCE OF ACUTE STROKE: NO Assessment & Plan - Diagnosis (1) Bacteremia due to Gram-positive bacteria Is this a current diagnosis for this admission?: Yes Plan: Ct with Zosyn 3.375 G q6h IV; Ct with Tylenol 650 mg q6h prn PO. F/u blood culture and urine culture. (2) Rhabdomyolysis Qualifiers: Encounter type: initial encounter Is this a current diagnosis for this admission?: Yes Plan: Ct with IV fluids normal saline with 20 MEQ of KCL at 125 cc/hr; strict input/ out put chart; Monitor chemistries daily. (3) Gross hematuria Is this a current diagnosis for this admission?: Yes Plan: Ct with IV fluids. For repeat Urinalysis later after some days course of antibiotics. (4) Leukocytosis, unspecified Qualifiers: Leukocytosis type: unspecified Qualified Code(s): D72.829 - Elevated white blood cell count, unspecified Is this a current diagnosis for this admission?: Yes Plan: Ct with Zosyn 3.375 G q6h IV; F/u daily CBC, blood and urine cultures. (5) Diabetes mellitus type 2 in obese Is this a current diagnosis for this admission?: Yes Plan: Ct with Humalog 20 units QAC; slidding scale with humalog insulin [facility] protocol ; Hold Lantus 40 iu qhs for now till she starts eating well. 1800 calorie ADA diet. (6) Hypertension Qualifiers: Hypertension type: essential hypertension Qualified Code(s): I10 - Essential (primary) hypertension Is this a current diagnosis for this admission?: Yes Plan: Ct with Losartan 25 mg qd po; 2 g sodium diet. (7) Osteoarthritis Qualifiers: Osteoarthritis location: unspecified site Is this a current diagnosis for this admission?: Yes Plan: Ct with [place] 5/325 1 BID po prn; Tylenol 650 mg q6h prn po. (8) Rhinitis, allergic Qualifiers: Allergic rhinitis trigger: unspecified Is this a current diagnosis for this admission?: Yes Plan: Ct with Claritin 10 mg qd pO; Flonase nasal spray 1 daily. (9) Vitamin D deficiency Is this a current diagnosis for this admission?: Yes Plan: VCT with Vitamin D [id number] weekly PO. (10) Depression Is this a current diagnosis for this admission?: Yes Plan: Ct with Paxil 20 mg qd PO; Trazodone 100 mg qhs po. (11) Anxiety disorder Is this a current diagnosis for this admission?: Yes Plan: Ct with Clonazepam 1 mg qhs po. (12) DVT prophylaxis Is this a current diagnosis for this admission?: Yes Plan: Ct with SCD; Hold Lovenox due to gross hematuria.
[2017-11-11] MEDS: NORMAL SALINE 1000 ML 1,000 ML IV PRN ×2 (13:34→23:10)
[2017-11-11] MEDS: INSULIN LISPRO 100 UNIT/ML 3 ML VIAL SUBCUT SCH (17:56)
[2017-11-11] MEDS ORDERED: CEFTRIAXONE SODIUM 1,000 MG in NORMAL SALINE 100 ML IV SCH (18:00)
[2017-11-11] MEDS: CLONAZEPAM 1 MG TABLET PO SCH (21:46)
[2017-11-11] MEDS: TRAZODONE HCL 50 MG TABLET PO PRN (21:46)
[2017-11-11] MEDS: ZOLPIDEM TARTRATE 5 MG TABLET PO SCH (21:47)
[2017-11-12] MEDS: PIPERACILLIN SODIUM/TAZOBACTAM 3.375 GM in NORMAL SALINE 100 ML IV SCH ×3 (05:37→18:03)
[2017-11-12] MEDS: LANSOPRAZOLE 30 MG TAB.RAP.DR PO SCH (05:37)
[2017-11-12 07:37] LABS: ABSOLUTE BASOPHILS # (AUTO) 0.1 10^3/uL (0.0-0.2); ABSOLUTE EOSINOPHILS # (AUTO) 0.1 10^3/uL (0.0-0.6); ABSOLUTE LYMPHOCYTES (AUTO) 1.1 10^3/uL (0.5-4.7); ABSOLUTE MONOCYTES (AUTO) 0.7 10^3/uL (0.1-1.4); BASOPHILS % (AUTO) 0.7 % (0-2); EOSINOPHILS % (AUTO) 0.9 % (0-6); HEMATOCRIT 36.6 % (36.0-47.0); HEMOGLOBIN 12.2 g/dL (12.0-15.5); LYMPHOCYTES % (AUTO) 11.9 % (13-45); MEAN CORPUSCULAR HEMOGLOBIN 30.2 pg (27.0-33.4); MEAN CORPUSCULAR HGB CONC 33.3 g/dL (32.0-36.0); MEAN CORPUSCULAR VOLUME 91 fl (80-97); MONOCYTES % (AUTO) 7.7 % (3-13); PLATELET COUNT 193 10^3/uL (150-450); RED BLOOD COUNT 4.03 10^6/uL (3.72-5.28); RED CELL DISTRIBUTION WIDTH 14.8 % (11.5-14.0); SEGMENTED NEUTROPHILS % (AUTO) 78.8 % (42-78); TOTAL CELLS COUNTED % (AUTO) 100 %; WHITE BLOOD COUNT 8.9 10^3/uL (4.0-10.5)
[2017-11-12] MEDS: INSULIN LISPRO 100 UNIT/ML 3 ML VIAL SUBCUT SCH ×3 (07:41→18:03)
[2017-11-12 07:56] LABS: ALANINE AMINOTRANSFERASE 37 U/L (9-52); ALBUMIN 2.6 g/dL (3.5-5.0); ALKALINE PHOSPHATASE 53 U/L (38-126); ANION GAP 7 (5-19); ASPARTATE AMINO TRANSFERASE 33 U/L (14-36); BILIRUBIN,DIRECT 0.4 mg/dL (0.0-0.4); BILIRUBIN,TOTAL 0.4 mg/dL (0.2-1.3); BLOOD UREA NITROGEN 17 mg/dL (7-20); CALCIUM 7.5 mg/dL (8.4-10.2); CARBON DIOXIDE 23 mmol/L (22-30); CHLORIDE 108 mmol/L (98-107); CREATINE KINASE 393 U/L (30-135); GLUCOSE 128 mg/dL (75-110); POTASSIUM 4.2 mmol/L (3.6-5.0); SODIUM 138.4 mmol/L (137-145); TOTAL PROTEIN 5.2 g/dL (6.3-8.2)
[2017-11-12] MEDS: ENOXAPARIN SODIUM INJ 40 MG/0.4 ML DISP.SYRIN SUBCUT SCH (09:59)
[2017-11-12] MEDS: NORMAL SALINE 1000 ML 1,000 ML IV PRN ×2 (10:00→21:00)
[2017-11-12] MEDS: LORATADINE 10 MG TABLET PO SCH (10:01)
[2017-11-12] MEDS: PAROXETINE HCL 20 MG TABLET PO SCH (10:01)
[2017-11-12] MEDS: LOSARTAN POTASSIUM 25 MG TABLET PO SCH (10:03)
[2017-11-12] MEDS: FLUTICASONE NASAL SPRAY 50 MCG/SPRY 120 SPRAY/16 GM NASL SCH (10:03)
--- NOTE | 2017-11-12 11:50 | PDOC PROGRESS REPORT ---
Subjective Progress Note for:: 11/12/17 Subjective:: She feels better and her WBC is back to normal- 8.9 and CK is down to 393. We will add Triamcinolone cream for her psoriasis. Reason For Visit: RHABDOMYOLYSIS/GROSS HEMATURIA/LEUKOCYTOSIS Physical Exam Vital Signs: Temp Pulse Resp BP Pulse Ox 97.4 F 87 20 130/55 H 100 11/12/17 07:31 11/12/17 07:31 11/12/17 07:31 11/12/17 07:31 11/12/17 07:31 Intake & Output 11/11/17 11/12/17 11/13/17 06:59 06:59 06:59 Intake Total 1250 2062 Output Total 450 2775 Balance 800 -713 Weight 108.5 kg 116.2 kg General appearance: PRESENT: no acute distress, cooperative, obese, well- developed, well-nourished Head exam: PRESENT: atraumatic, normocephalic Eye exam: PRESENT: EOMI, PERRLA Ear exam: PRESENT: normal external ear exam Mouth exam: PRESENT: neck supple, tongue midline Neck exam: PRESENT: full ROM Cardiovascular exam: PRESENT: +S1, +S2 Pulses: PRESENT: +2 pedal pulses bilateral GI/Abdominal exam: PRESENT: normal bowel sounds, soft Rectal exam: PRESENT: deferred Extremities exam: PRESENT: full ROM Musculoskeletal exam: PRESENT: full ROM Neurological exam: PRESENT: alert, awake, oriented to person, oriented to place , oriented to time Psychiatric exam: PRESENT: normal mood Results Laboratory Results: 11/12/17 07:15 11/12/17 07:15 11/12/17 11/12/17 07:15 07:15 WBC 8.9 RBC 4.03 Hgb 12.2 Hct 36.6 MCV 91 MCH 30.2 MCHC 33.3 RDW 14.8 H Plt Count 193 Seg Neutrophils % 78.8 H Lymphocytes % 11.9 L Monocytes % 7.7 Eosinophils % 0.9 Basophils % 0.7 Absolute Neutrophils 7.0 Absolute Lymphocytes 1.1 Absolute Monocytes 0.7 Absolute Eosinophils 0.1 Absolute Basophils 0.1 Sodium 138.4 Potassium 4.2 Chloride 108 H Carbon Dioxide 23 Anion Gap 7 BUN 17 Creatinine 1.00 Est GFR ( Amer) > 60 Est GFR (Non-Af Amer) 56 L Glucose 128 H Calcium 7.5 L Total Bilirubin 0.4 AST 33 ALT 37 Alkaline Phosphatase 53 Total Protein 5.2 L Albumin 2.6 L 11/11/17 11/12/17 05:55 07:15 Creatine Kinase 1190 H 393 H Impressions: Renal Ultrasound 11/10/17 00:00 IMPRESSION: Very limited study with no obvious abnormality or explanation for the gross hematuria. Chest X-Ray 11/10/17 14:20 IMPRESSION: NO ACUTE RADIOGRAPHIC FINDING IN THE CHEST. Head CT 11/10/17 15:32 IMPRESSION: NORMAL BRAIN CT WITHOUT CONTRAST. EVIDENCE OF ACUTE STROKE: NO Assessment & Plan - Diagnosis (1) Bacteremia due to Gram-positive bacteria Is this a current diagnosis for this admission?: Yes Plan: Ct with Zosyn 3.375 G q6h IV; Ct with Tylenol 650 mg q6h prn PO. F/u blood culture and urine culture. (2) Rhabdomyolysis Qualifiers: Encounter type: initial encounter Is this a current diagnosis for this admission?: Yes Plan: Ct with IV fluids normal saline with 20 MEQ of KCL at 125 cc/hr; strict input/ out put chart; Monitor chemistries daily. (3) Gross hematuria Is this a current diagnosis for this admission?: Yes Plan: Ct with IV fluids. For repeat urinalysis today. (4) Leukocytosis, unspecified Qualifiers: Leukocytosis type: unspecified Qualified Code(s): D72.829 - Elevated white blood cell count, unspecified Is this a current diagnosis for this admission?: Yes Plan: Resolved;Ct with Zosyn 3.375 G q6h IV; F/u daily CBC, final blood and urine cultures. (5) Diabetes mellitus type 2 in obese Is this a current diagnosis for this admission?: Yes Plan: Ct with Humalog 20 units QAC; slidding scale with humalog insulin [facility] protocol ; Hold Lantus 40 iu qhs for now till she starts eating well. 1800 calorie ADA diet. (6) Hypertension Qualifiers: Hypertension type: essential hypertension Qualified Code(s): I10 - Essential (primary) hypertension Is this a current diagnosis for this admission?: Yes Plan: Ct with Losartan 25 mg qd po; 2 g sodium diet. (7) Osteoarthritis Qualifiers: Osteoarthritis location: unspecified site Is this a current diagnosis for this admission?: Yes Plan: Ct with [place] 5/325 1 BID po prn; Tylenol 650 mg q6h prn po. (8) Rhinitis, allergic Qualifiers: Allergic rhinitis trigger: unspecified Is this a current diagnosis for this admission?: Yes Plan: Ct with Claritin 10 mg qd pO; Flonase nasal spray 1 daily. (9) Vitamin D deficiency Is this a current diagnosis for this admission?: Yes Plan: VCT with Vitamin D [id number] weekly PO. (10) Depression Is this a current diagnosis for this admission?: Yes Plan: Ct with Paxil 20 mg qd PO; Trazodone 100 mg qhs po. (11) Anxiety disorder Is this a current diagnosis for this admission?: Yes Plan: Ct with Clonazepam 1 mg qhs po. (12) DVT prophylaxis Is this a current diagnosis for this admission?: Yes Plan: Ct with SCD; Ct with Lovenox 40 mg qd subcut. (13) Psoriasis Is this a current diagnosis for this admission?: Yes Plan: Ct with Triamcinolone cream- apply BID.
[2017-11-12] MEDS: HYDROCODONE/ACETAMINOPHEN 5-325 MG TABLET PO PRN (13:50)
[2017-11-12] MEDS ORDERED: TRIAMCINOLONE ACETONIDE 0.5% CREAM 15 GM TP ONE (14:00)
[2017-11-12] MEDS: TRIAMCINOLONE ACETONIDE 0.5% CREAM 15 GM TP SCH (18:03)
[2017-11-12] MEDS: VANCOMYCIN HCL 1,000 MG in DEXTROSE 5%-WATER 250 ML IV SCH (21:00)
[2017-11-12] MEDS: CLONAZEPAM 1 MG TABLET PO SCH (21:01)
[2017-11-12] MEDS: TRAZODONE HCL 50 MG TABLET PO PRN (21:06)
[2017-11-12] MEDS: ZOLPIDEM TARTRATE 5 MG TABLET PO SCH (21:06)
--- NOTE | 2017-11-12 22:59 | RADIOLOGY REPORT (SQ) ---
EXAM DESCRIPTION: MRI RT LOWER EXTREMITY WITHOUT COMPLETED DATE/TIME: 11/12/2017 8:45 pm REASON FOR STUDY: possible osteomylitis COMPARISON: None. TECHNIQUE: Rightknee images acquired and stored on PACS. Multiplanar images include fat sensitive s equences as T1, water sensitive sequences as FST2 or STIR, cartilage sensitive sequences as FSPD, and gradient echo sequences. LIMITATIONS: None. FINDINGS: JOINT AND BURSAE: Trace effusion. BONE CORTEX AND MARROW: No alteration of signal to suggest marrow replacement. No worrisome bone lesi ons. No occult fracture. No evidence for significant meniscal or ligament tear. SOFT TISSUES: Adjacent muscles and subcutaneous tissues show diffuse soft tissue edema-swelling witho ut defined fluid collection. Normal flow void in popliteal artery and vein. OTHER: No other significant finding. IMPRESSION: Trace effusion. No marrow edema to suggest osteomyelitis. Adjacent muscles and subcutaneous tissues show diffuse soft tissue edema-swelling without defined flu id collection. TECHNICAL DOCUMENTATION: JOB ID: [id number] 2010 [employer]- All Rights Reserved Reading location - IP/workstation name: [email or web address]
[2017-11-13] MEDS: PIPERACILLIN SODIUM/TAZOBACTAM 3.375 GM in NORMAL SALINE 100 ML IV SCH ×3 (00:04→12:46)
[2017-11-13] MEDS: LANSOPRAZOLE 30 MG TAB.RAP.DR PO SCH (05:01)
[2017-11-13 05:44] LABS: ABSOLUTE EOSINOPHILS # (AUTO) 0.1 10^3/uL (0.0-0.6); ABSOLUTE LYMPHOCYTES (AUTO) 1.6 10^3/uL (0.5-4.7); ABSOLUTE MONOCYTES (AUTO) 1.1 10^3/uL (0.1-1.4); ABSOLUTE NEUT (AUTO) 5.3 10^3/uL (1.7-8.2); BASOPHILS % (AUTO) 0.4 % (0-2); EOSINOPHILS % (AUTO) 1.2 % (0-6); HEMATOCRIT 35.7 % (36.0-47.0); HEMOGLOBIN 11.9 g/dL (12.0-15.5); LYMPHOCYTES % (AUTO) 20.1 % (13-45); MEAN CORPUSCULAR HEMOGLOBIN 30.2 pg (27.0-33.4); MEAN CORPUSCULAR HGB CONC 33.3 g/dL (32.0-36.0); MEAN CORPUSCULAR VOLUME 91 fl (80-97); MONOCYTES % (AUTO) 13.1 % (3-13); PLATELET COUNT 204 10^3/uL (150-450); RED BLOOD COUNT 3.94 10^6/uL (3.72-5.28); RED CELL DISTRIBUTION WIDTH 14.5 % (11.5-14.0); SEGMENTED NEUTROPHILS % (AUTO) 65.2 % (42-78); TOTAL CELLS COUNTED % (AUTO) 100 %; WHITE BLOOD COUNT 8.1 10^3/uL (4.0-10.5)
[2017-11-13 05:49] LABS: APPEARANCE,URINE CLEAR; BILIRUBIN,URINE NEGATIVE (NEGATIVE); COLOR,URINE STRAW; GLUCOSE, URINE NEGATIVE (NEGATIVE); KETONES,URINE NEGATIVE (NEGATIVE); LEUKOCYTE ESTERASE,URINE NEGATIVE (NEGATIVE); NITRITE,URINE NEGATIVE (NEGATIVE); PROTEIN,URINE NEGATIVE (NEGATIVE); URINE SPECIFIC GRAVITY 1.009; UROBILINOGEN,URINE NEGATIVE mg/dL (<2.0)
[2017-11-13 06:02] LABS: ANION GAP 10 (5-19)
[2017-11-13 06:09] LABS: ALANINE AMINOTRANSFERASE 37 U/L (9-52); ALBUMIN 2.6 g/dL (3.5-5.0); ALKALINE PHOSPHATASE 59 U/L (38-126); ASPARTATE AMINO TRANSFERASE 25 U/L (14-36); BILIRUBIN,DIRECT 0.2 mg/dL (0.0-0.4); BILIRUBIN,TOTAL 0.5 mg/dL (0.2-1.3); BLOOD UREA NITROGEN 11 mg/dL (7-20); CALCIUM 7.7 mg/dL (8.4-10.2); CARBON DIOXIDE 22 mmol/L (22-30); CHLORIDE 108 mmol/L (98-107); CREATINE KINASE 154 U/L (30-135); GLUCOSE 117 mg/dL (75-110); POTASSIUM 3.7 mmol/L (3.6-5.0); SODIUM 140.3 mmol/L (137-145); TOTAL PROTEIN 4.9 g/dL (6.3-8.2)
[2017-11-13] MEDS: FLUTICASONE NASAL SPRAY 50 MCG/SPRY 120 SPRAY/16 GM NASL SCH (09:14)
[2017-11-13] MEDS: VANCOMYCIN HCL 1,000 MG in DEXTROSE 5%-WATER 250 ML IV SCH ×2 (09:14→19:24)
[2017-11-13] MEDS: TRIAMCINOLONE ACETONIDE 0.5% CREAM 15 GM TP SCH ×2 (09:14→17:33)
[2017-11-13] MEDS: LORATADINE 10 MG TABLET PO SCH (09:14)
[2017-11-13] MEDS: LOSARTAN POTASSIUM 25 MG TABLET PO SCH (09:14)
[2017-11-13] MEDS: PAROXETINE HCL 20 MG TABLET PO SCH (09:14)
[2017-11-13] MEDS: ENOXAPARIN SODIUM INJ 40 MG/0.4 ML DISP.SYRIN SUBCUT SCH (09:14)
[2017-11-13] MEDS: INSULIN LISPRO 100 UNIT/ML 3 ML VIAL SUBCUT SCH ×3 (09:15→17:36)
--- NOTE | 2017-11-13 14:29 | PDOC PROGRESS REPORT ---
Subjective Progress Note for:: 11/13/17 Subjective:: Pt is doing better. Her WBC is 8.1 and CK is 154. The MRI right leg did not show ostemyelitis.Blood culture showed Enterococcus fecalis and pt has been put on Vancomycin and Zosyn. Reason For Visit: RHABDOMYOLYSIS/GROSS HEMATURIA/LEUKOCYTOSIS Physical Exam Vital Signs: Temp Pulse Resp BP Pulse Ox 98.7 F 88 22 H 141/76 H 96 11/13/17 11:59 11/13/17 11:59 11/13/17 11:59 11/13/17 11:59 11/13/17 11:59 Intake & Output 11/12/17 11/13/17 11/14/17 06:59 06:59 06:59 Intake Total 2062 4655 0 Output Total 2775 3050 1000 Balance -713 1605 -1000 Weight 116.2 kg 115.2 kg General appearance: PRESENT: no acute distress, cooperative, well-developed, well-nourished Head exam: PRESENT: atraumatic, normocephalic Eye exam: PRESENT: EOMI, PERRLA Ear exam: PRESENT: normal external ear exam, TM's normal bilaterally Mouth exam: PRESENT: neck supple, tongue midline Neck exam: PRESENT: full ROM Respiratory exam: PRESENT: clear to auscultation [place], symmetrical Cardiovascular exam: PRESENT: +S1, +S2 Pulses: PRESENT: +2 pedal pulses bilateral Vascular exam: PRESENT: normal capillary refill GI/Abdominal exam: PRESENT: normal bowel sounds, soft Rectal exam: PRESENT: deferred Extremities exam: PRESENT: full ROM Musculoskeletal exam: PRESENT: full ROM Neurological exam: PRESENT: alert, awake, oriented to person, oriented to place , oriented to time Psychiatric exam: PRESENT: normal mood Results Laboratory Results: 11/13/17 05:03 11/13/17 05:03 11/13/17 11/13/17 11/13/17 05:00 05:03 05:03 WBC 8.1 RBC 3.94 Hgb 11.9 L Hct 35.7 L MCV 91 MCH 30.2 MCHC 33.3 RDW 14.5 H Plt Count 204 Seg Neutrophils % 65.2 Lymphocytes % 20.1 Monocytes % 13.1 H Eosinophils % 1.2 Basophils % 0.4 Absolute Neutrophils 5.3 Absolute Lymphocytes 1.6 Absolute Monocytes 1.1 Absolute Eosinophils 0.1 Absolute Basophils 0.0 Sodium 140.3 Potassium 3.7 Chloride 108 H Carbon Dioxide 22 Anion Gap 10 BUN 11 Creatinine 0.90 Est GFR ( Amer) > 60 Est GFR (Non-Af Amer) > 60 Glucose 117 H Calcium 7.7 L Total Bilirubin 0.5 AST 25 ALT 37 Alkaline Phosphatase 59 Total Protein 4.9 L Albumin 2.6 L Urine Color STRAW Urine Appearance CLEAR Urine pH 5.0 Ur Specific [place] 1.009 Urine Protein NEGATIVE Urine Glucose (UA) NEGATIVE Urine Ketones NEGATIVE Urine Blood SMALL H Urine Nitrite NEGATIVE Ur Leukocyte Esterase NEGATIVE Urine WBC (Auto) 1 Urine RBC (Auto) 1 11/11/17 11/12/17 11/13/17 05:55 07:15 05:03 Creatine Kinase 1190 H 393 H 154 H Impressions: Renal Ultrasound 11/10/17 00:00 IMPRESSION: Very limited study with no obvious abnormality or explanation for the gross hematuria. Chest X-Ray 11/10/17 14:20 IMPRESSION: NO ACUTE RADIOGRAPHIC FINDING IN THE CHEST. Head CT 11/10/17 15:32 IMPRESSION: NORMAL BRAIN CT WITHOUT CONTRAST. EVIDENCE OF ACUTE STROKE: NO Lower Extremity MRI 11/12/17 00:00 IMPRESSION: Trace effusion. No marrow edema to suggest osteomyelitis. Adjacent muscles and subcutaneous tissues show diffuse soft tissue edema- swelling without defined fluid collection. Assessment & Plan - Diagnosis (1) Bacteremia due to Enterococcus Is this a current diagnosis for this admission?: Yes Plan: ct with Zosyn 3.375 G q6h IV; Vancomycin IV as per [facility] protocol; Tylenol 650 mg q6h po prn. (2) Bacteremia due to Gram-positive bacteria Is this a current diagnosis for this admission?: Yes Plan: Ct with Zosyn 3.375 G q6h IV; Vancomycin IV as per [facility] protocol.Ct with Tylenol 650 mg q6h prn PO. (3) Rhabdomyolysis Qualifiers: Encounter type: initial encounter Is this a current diagnosis for this admission?: Yes Plan: Ct with IV fluids normal saline with 20 MEQ of KCL at 100 cc/hr; strict input/ out put chart; Monitor chemistries daily. (4) Gross hematuria Is this a current diagnosis for this admission?: Yes Plan: Ct with IV fluids. (5) Leukocytosis, unspecified Qualifiers: Leukocytosis type: unspecified Qualified Code(s): D72.829 - Elevated white blood cell count, unspecified Is this a current diagnosis for this admission?: Yes Plan: Resolved;Ct with Zosyn 3.375 G q6h IV; Vancomycin IV as per [facility] protocol. F/u daily CBC. (6) Diabetes mellitus type 2 in obese Is this a current diagnosis for this admission?: Yes Plan: Ct with Humalog 20 units QAC; slidding scale with humalog insulin [facility] protocol ; Hold Lantus 40 iu qhs for now till she starts eating well. 1800 calorie ADA diet. (7) Hypertension Qualifiers: Hypertension type: essential hypertension Qualified Code(s): I10 - Essential (primary) hypertension Is this a current diagnosis for this admission?: Yes Plan: Ct with Losartan 25 mg qd po; 2 g sodium diet. (8) Osteoarthritis Qualifiers: Osteoarthritis location: unspecified site Is this a current diagnosis for this admission?: Yes Plan: Ct with [place] 5/325 1 BID po prn; Tylenol 650 mg q6h prn po. (9) Rhinitis, allergic Qualifiers: Allergic rhinitis trigger: unspecified Is this a current diagnosis for this admission?: Yes Plan: Ct with Claritin 10 mg qd pO; Flonase nasal spray 1 daily. (10) Vitamin D deficiency Is this a current diagnosis for this admission?: Yes Plan: VCT with Vitamin D [id number] weekly PO. (11) Depression Is this a current diagnosis for this admission?: Yes Plan: Ct with Paxil 20 mg qd PO; Trazodone 100 mg qhs po. (12) Anxiety disorder Is this a current diagnosis for this admission?: Yes Plan: Ct with Clonazepam 1 mg qhs po. (13) DVT prophylaxis Is this a current diagnosis for this admission?: Yes Plan: Ct with SCD; Ct with Lovenox 40 mg qd subcut. (14) Psoriasis Is this a current diagnosis for this admission?: Yes Plan: Ct with Triamcinolone cream- apply BID. (15) Morbid obesity Is this a current diagnosis for this admission?: Yes Plan: Ct with dietary counseling and exercise.
[2017-11-13] MEDS: POTASSI CL 20 MEQ/NS 1L 1,000 ML IV PRN (18:43)
--- NOTE | 2017-11-13 19:55 | XCELERA REPORT ---
[address] [address] Transthoracic Echocardiogram Report Name: MARIA DEL ROSARIO ANDERSEN Age: 62 yrs Gender: Female : 1955 Patient Status: Inpatient Patient Location: [address] [place] [address] Study Date: 11/13/2017 02:13 PM Height: 65 in Weight: 256 lb BSA: 2.2 m2 Procedure: A complete two-dimensional transthoracic echocardiogram was performed (2D, M-mode, spectral and color flow Doppler). The study was technically difficult with many images being suboptimal in quality. Reason For Study: possible endocarditis Ordering Physician: CRYSTAL MCCURDY Performed By: Nita Mast Interpretation Summary The study was technically difficult with many images being suboptimal in quality. The left ventricular ejection fraction is preserved. Consider additional methods to assess LVEF such as MUGA scan, CTA heart, cardiac MRI, PHYLLIS, etc. if clinically indicated. There is mild concentric left ventricular hypertrophy. The left ventricle is grossly normal size. LV diastolic function could not be adequately assessed. Regional wall motion abnormalities cannot be excluded due to limited visualization. Right ventricular function cannot be assessed due to poor image quality. The right ventricle is not well visualized secondary to technical limitations The left atrium is mildly dilated. The mitral valve is not well visualized. There is no mitral valve stenosis. There is a trace to mild amount of mitral regurgitation The aortic valve is not well visualized secondary to technical limitations There is no aortic valve stenosis No aortic regurgitation is present. There is a trace to mild amount of tricuspid regurgitation There is mild pulmonary hypertension by echo Right ventricular systolic pressure is estimated to be elevated at 30- 40mmHg. The aortic root is not well visualized but is probably normal size. The inferior vena cava was not well visualized There is no pericardial effusion. Consider PHYLLIS if clinically indicated. Vegetation cannot be excluded on the basis of this study. MMode/2D Measurements & Calculations RVDd: 1.8 cm LVIDd: 5.1 cm FS: 30.8 % Ao root diam: 2.8 cm IVSd: 1.3 cm LVIDs: 3.5 cm EDV(Teich): 122.3 ml LVPWd: 1.3 cm ESV(Teich): 51.2 ml Ao root area: 6.2 cm2 EF(Teich): 58.1 % Doppler Measurements & Calculations MV E max shantell: MV dec slope: Ao V2 max: LV V1 max P.2 cm/sec 121.8 cm/sec 2.0 mmHg MV A max shantell: 824.6 cm/sec2 Ao max PG: LV V1 max: 64.8 cm/sec MV dec time: 5.9 mmHg 71.4 cm/sec MV E/A: 2.1 0.17 sec PA V2 max: TR max shantell: 90.5 cm/sec 280.3 cm/sec PA max P.3 mmHg TR max P.7 mmHg Left Ventricle The left ventricle is grossly normal size. There is mild concentric left ventricular hypertrophy. The left ventricular ejection fraction is preserved. Consider additional methods to assess LVEF such as MUGA scan, CTA heart, cardiac MRI, PHYLLIS, etc. if clinically indicated. LV diastolic function could not be adequately assessed. Regional wall motion abnormalities cannot be excluded due to limited visualization. Right Ventricle The right ventricle is not well visualized secondary to technical limitations. Right ventricular function cannot be assessed due to poor image quality. Atria Right atrium not well visualized secondary to technical limitations. The left atrium is mildly dilated. Mitral Valve The mitral valve is not well visualized. There is no mitral valve stenosis. There is a trace to mild amount of mitral regurgitation. Aortic Valve The aortic valve is not well visualized secondary to technical limitations. There is no aortic valve stenosis. No aortic regurgitation is present. Tricuspid Valve The tricuspid valve is not well visualized secondary to technical limitations. There is no tricuspid stenosis. There is a trace to mild amount of tricuspid regurgitation. There is mild pulmonary hypertension by echo. Right ventricular systolic pressure is estimated to be elevated at 30-40mmHg. Pulmonic Valve The pulmonic valve is not well visualized. Great Vessels The aortic root is not well visualized but is probably normal size. The inferior vena cava was not well visualized. Effusions There is no pericardial effusion. Incidental Findings Consider PHYLLIS if clinically indicated. Vegetation cannot be excluded on the basis of this study. : CRYSTAL MCCURDY > Torie Toribio
[2017-11-13] MEDS: TRAZODONE HCL 50 MG TABLET PO PRN (21:08)
[2017-11-13] MEDS: CLONAZEPAM 1 MG TABLET PO SCH (21:08)
[2017-11-13] MEDS: ZOLPIDEM TARTRATE 5 MG TABLET PO SCH (21:09)
[2017-11-14] MEDS: LANSOPRAZOLE 30 MG TAB.RAP.DR PO SCH (05:34)
[2017-11-14] MEDS: POTASSI CL 20 MEQ/NS 1L 1,000 ML IV PRN ×2 (06:27→18:41)
[2017-11-14 08:42] LABS: VANCOMYCIN,TROUGH 8.3 ug/mL (5.0-20.0)
[2017-11-14] MEDS: INSULIN LISPRO 100 UNIT/ML 3 ML VIAL SUBCUT SCH ×3 (08:57→17:05)
[2017-11-14] MEDS: VANCOMYCIN HCL 1,000 MG in DEXTROSE 5%-WATER 250 ML IV SCH ×2 (08:59→18:39)
[2017-11-14] MEDS: LOSARTAN POTASSIUM 25 MG TABLET PO SCH (09:23)
[2017-11-14] MEDS: FLUTICASONE NASAL SPRAY 50 MCG/SPRY 120 SPRAY/16 GM NASL SCH (09:24)
[2017-11-14] MEDS: LORATADINE 10 MG TABLET PO SCH (09:25)
[2017-11-14] MEDS: TRIAMCINOLONE ACETONIDE 0.5% CREAM 15 GM TP SCH ×2 (09:25→18:40)
[2017-11-14] MEDS: PAROXETINE HCL 20 MG TABLET PO SCH (09:26)
[2017-11-14] MEDS: ENOXAPARIN SODIUM INJ 40 MG/0.4 ML DISP.SYRIN SUBCUT SCH (09:27)
[2017-11-14 10:51] LABS: ABSOLUTE BASOPHILS # (AUTO) 0.1 10^3/uL (0.0-0.2); ABSOLUTE EOSINOPHILS # (AUTO) 0.1 10^3/uL (0.0-0.6); ABSOLUTE LYMPHOCYTES (AUTO) 1.8 10^3/uL (0.5-4.7); ABSOLUTE MONOCYTES (AUTO) 1.1 10^3/uL (0.1-1.4); ABSOLUTE NEUT (AUTO) 5.1 10^3/uL (1.7-8.2); BASOPHILS % (AUTO) 0.7 % (0-2); EOSINOPHILS % (AUTO) 1.5 % (0-6); HEMATOCRIT 34.8 % (36.0-47.0); HEMOGLOBIN 11.5 g/dL (12.0-15.5); LYMPHOCYTES % (AUTO) 21.8 % (13-45); MEAN CORPUSCULAR HGB CONC 33.1 g/dL (32.0-36.0); MEAN CORPUSCULAR VOLUME 91 fl (80-97); MONOCYTES % (AUTO) 13.5 % (3-13); PLATELET COUNT 233 10^3/uL (150-450); RED BLOOD COUNT 3.84 10^6/uL (3.72-5.28); RED CELL DISTRIBUTION WIDTH 14.6 % (11.5-14.0); SEGMENTED NEUTROPHILS % (AUTO) 62.5 % (42-78); TOTAL CELLS COUNTED % (AUTO) 100 %; WHITE BLOOD COUNT 8.2 10^3/uL (4.0-10.5)
[2017-11-14 11:12] LABS: ALANINE AMINOTRANSFERASE 33 U/L (9-52); ALBUMIN 2.5 g/dL (3.5-5.0); ALKALINE PHOSPHATASE 78 U/L (38-126); ANION GAP 9 (5-19); ASPARTATE AMINO TRANSFERASE 26 U/L (14-36); BILIRUBIN,DIRECT 0.4 mg/dL (0.0-0.4); BILIRUBIN,TOTAL 0.6 mg/dL (0.2-1.3); BLOOD UREA NITROGEN 9 mg/dL (7-20); CALCIUM 8.1 mg/dL (8.4-10.2); CARBON DIOXIDE 25 mmol/L (22-30); CHLORIDE 107 mmol/L (98-107); GLUCOSE 153 mg/dL (75-110); POTASSIUM 3.9 mmol/L (3.6-5.0); SODIUM 140.5 mmol/L (137-145); TOTAL PROTEIN 4.9 g/dL (6.3-8.2)
--- NOTE | 2017-11-14 12:22 | PDOC PROGRESS REPORT ---
Subjective Progress Note for:: 11/14/17 Subjective:: She is doing better; right lower extremity is less painful. ECHO(TTE) showed no vegetations or features suggestive of endocarditis. We will get PT/OT consult. Reason For Visit: RHABDOMYOLYSIS/GROSS HEMATURIA/LEUKOCYTOSIS Physical Exam Vital Signs: Temp Pulse Resp BP Pulse Ox 97.6 F 69 18 131/67 H 97 11/14/17 07:40 11/14/17 07:40 11/14/17 07:40 11/14/17 07:40 11/14/17 07:40 Intake & Output 11/13/17 11/14/17 11/15/17 06:59 06:59 06:59 Intake Total 4655 3072 Output Total 3050 2700 Balance 1605 372 Weight 115.2 kg 113.3 kg General appearance: PRESENT: no acute distress, cooperative, obese, well- developed, well-nourished Head exam: PRESENT: atraumatic, normocephalic Eye exam: PRESENT: EOMI, PERRLA Ear exam: PRESENT: normal external ear exam, TM's normal bilaterally Mouth exam: PRESENT: neck supple, tongue midline Neck exam: PRESENT: full ROM Respiratory exam: PRESENT: clear to auscultation hattie, symmetrical Cardiovascular exam: PRESENT: +S1, +S2 Pulses: PRESENT: +2 pedal pulses bilateral GI/Abdominal exam: PRESENT: normal bowel sounds, soft Rectal exam: PRESENT: deferred Additional comments: Mild tenderness right leg, mildly warm to touch, no longer swollen, limitation of movement. Musculoskeletal exam: PRESENT: full ROM Neurological exam: PRESENT: alert, awake, oriented to person, oriented to place , oriented to time Psychiatric exam: PRESENT: normal mood Results Laboratory Results: 11/14/17 07:56 11/14/17 07:56 11/14/17 11/14/17 11/14/17 07:56 07:56 07:56 WBC 8.2 RBC 3.84 Hgb 11.5 L Hct 34.8 L MCV 91 MCH 30.0 MCHC 33.1 RDW 14.6 H Plt Count 233 Seg Neutrophils % 62.5 Lymphocytes % 21.8 Monocytes % 13.5 H Eosinophils % 1.5 Basophils % 0.7 Absolute Neutrophils 5.1 Absolute Lymphocytes 1.8 Absolute Monocytes 1.1 Absolute Eosinophils 0.1 Absolute Basophils 0.1 Sodium 140.5 Potassium 3.9 Chloride 107 Carbon Dioxide 25 Anion Gap 9 BUN 9 Creatinine 0.79 0.79 Est GFR ( Amer) > 60 > 60 Est GFR (Non-Af Amer) > 60 > 60 Glucose 153 H Calcium 8.1 L Total Bilirubin 0.6 AST 26 ALT 33 Alkaline Phosphatase 78 Total Protein 4.9 L Albumin 2.5 L 11/11/17 11/12/17 11/13/17 05:55 07:15 05:03 Creatine Kinase 1190 H 393 H 154 H Impressions: Renal Ultrasound 11/10/17 00:00 IMPRESSION: Very limited study with no obvious abnormality or explanation for the gross hematuria. Chest X-Ray 11/10/17 14:20 IMPRESSION: NO ACUTE RADIOGRAPHIC FINDING IN THE CHEST. Head CT 11/10/17 15:32 IMPRESSION: NORMAL BRAIN CT WITHOUT CONTRAST. EVIDENCE OF ACUTE STROKE: NO Lower Extremity MRI 11/12/17 00:00 IMPRESSION: Trace effusion. No marrow edema to suggest osteomyelitis. Adjacent muscles and subcutaneous tissues show diffuse soft tissue edema- swelling without defined fluid collection. Assessment & Plan - Diagnosis (1) Cellulitis of right lower extremity Is this a current diagnosis for this admission?: Yes Plan: Ct with Vancomycin IV as per OM protocol; Ct with Penicillin K-K 500 mg q6h po ; Tylenol 650 mg q6h prn po for pain. (2) Bacteremia due to Enterococcus Is this a current diagnosis for this admission?: Yes Plan: ct with Vancomycin IV as per OM protocol; Penicillin- V K 500 mg q6h po; Tylenol 650 mg q6h po prn. (3) Bacteremia due to Gram-positive bacteria Is this a current diagnosis for this admission?: Yes Plan: Ct with Vancomycin IV as per OM protocol; Penicillin- V K 500 mg q6h po;Ct with Tylenol 650 mg q6h prn PO. (4) Rhabdomyolysis Qualifiers: Encounter type: initial encounter Is this a current diagnosis for this admission?: Yes Plan: Ct with IV fluids normal saline with 20 MEQ of KCL at 100 cc/hr; strict input/ out put chart; Monitor chemistries daily. (5) Gross hematuria Is this a current diagnosis for this admission?: Yes Plan: Resolved; Renal US showed no abnormality. (6) Leukocytosis, unspecified Qualifiers: Leukocytosis type: unspecified Qualified Code(s): D72.829 - Elevated white blood cell count, unspecified Is this a current diagnosis for this admission?: Yes Plan: Resolved;Ct with Vancomycin IV as per OM protocol. Ct with Penicillin -V K 500 mg q6h po; F/u daily CBC. (7) Diabetes mellitus type 2 in obese Is this a current diagnosis for this admission?: Yes Plan: Ct with Humalog 20 units QAC; slidding scale with humalog insulin [facility] protocol ; Hold Lantus 40 iu qhs for now till she starts eating well. 1800 calorie ADA diet. (8) Hypertension Qualifiers: Hypertension type: essential hypertension Qualified Code(s): I10 - Essential (primary) hypertension Is this a current diagnosis for this admission?: Yes Plan: Ct with Losartan 25 mg qd po; 2 g sodium diet. (9) Osteoarthritis Qualifiers: Osteoarthritis location: unspecified site Is this a current diagnosis for this admission?: Yes Plan: Ct with [place] 5/325 1 BID po prn; Tylenol 650 mg q6h prn po. (10) Rhinitis, allergic Qualifiers: Allergic rhinitis trigger: unspecified Is this a current diagnosis for this admission?: Yes Plan: Ct with Claritin 10 mg qd pO; Flonase nasal spray 1 daily. (11) Vitamin D deficiency Is this a current diagnosis for this admission?: Yes Plan: VCT with Vitamin D 15671tw weekly PO. (12) Depression Is this a current diagnosis for this admission?: Yes Plan: Ct with Paxil 20 mg qd PO; Trazodone 100 mg qhs po. (13) Anxiety disorder Is this a current diagnosis for this admission?: Yes Plan: Ct with Clonazepam 1 mg qhs po. (14) DVT prophylaxis Is this a current diagnosis for this admission?: Yes Plan: Ct with SCD; Ct with Lovenox 40 mg qd subcut. (15) Psoriasis Is this a current diagnosis for this admission?: Yes Plan: Ct with Triamcinolone cream- apply BID. (16) Morbid obesity Is this a current diagnosis for this admission?: Yes Plan: Ct with dietary counseling and exercise.
[2017-11-14] MEDS: PENICILLIN V POTASSIUM 500 MG TABLET PO SCH ×2 (18:39→23:19)
[2017-11-14] MEDS: TRAZODONE HCL 50 MG TABLET PO PRN (23:19)
[2017-11-14] MEDS: CLONAZEPAM 1 MG TABLET PO SCH (23:19)
[2017-11-14] MEDS: ZOLPIDEM TARTRATE 5 MG TABLET PO SCH (23:20)
[2017-11-15] MEDS: VANCOMYCIN HCL 1,000 MG in DEXTROSE 5%-WATER 250 ML IV SCH ×3 (01:11→18:06)
[2017-11-15] MEDS: PENICILLIN V POTASSIUM 500 MG TABLET PO SCH ×4 (05:17→23:57)
[2017-11-15] MEDS: LANSOPRAZOLE 30 MG TAB.RAP.DR PO SCH (05:17)
[2017-11-15] MEDS: POTASSI CL 20 MEQ/NS 1L 1,000 ML IV PRN (05:17)
[2017-11-15] MEDS: INSULIN LISPRO 100 UNIT/ML 3 ML VIAL SUBCUT SCH ×3 (10:25→18:07)
[2017-11-15] MEDS: ENOXAPARIN SODIUM INJ 40 MG/0.4 ML DISP.SYRIN SUBCUT SCH (10:26)
[2017-11-15] MEDS: PAROXETINE HCL 20 MG TABLET PO SCH (10:27)
[2017-11-15] MEDS: TRIAMCINOLONE ACETONIDE 0.5% CREAM 15 GM TP SCH ×2 (10:28→18:06)
[2017-11-15] MEDS: LOSARTAN POTASSIUM 25 MG TABLET PO SCH (10:28)
[2017-11-15] MEDS: LORATADINE 10 MG TABLET PO SCH (10:35)
[2017-11-15] MEDS: FLUTICASONE NASAL SPRAY 50 MCG/SPRY 120 SPRAY/16 GM NASL SCH (10:35)
[2017-11-15 11:06] LABS: VANCOMYCIN,TROUGH 14.7 ug/mL (5.0-20.0)
--- NOTE | 2017-11-15 17:01 | PDOC PROGRESS REPORT ---
Subjective Progress Note for:: 11/15/17 Subjective:: Pt states that her left hand is swollen and red. was at bedside and asked when pt was going to go home. Reason For Visit: RHABDOMYOLYSIS/GROSS HEMATURIA/LEUKOCYTOSIS Physical Exam Vital Signs: Temp Pulse Resp BP Pulse Ox 97.7 F 79 18 152/77 H 94 11/15/17 11:39 11/15/17 14:00 11/15/17 11:39 11/15/17 11:39 11/15/17 11:39 Intake & Output 11/14/17 11/15/17 11/16/17 06:59 06:59 06:59 Intake Total 3072 3805 473 Output Total 2700 2500 1000 Balance 372 1305 -527 Weight 113.3 kg 114.2 kg General appearance: PRESENT: no acute distress, well-developed, well-nourished Head exam: PRESENT: atraumatic, normocephalic Eye exam: PRESENT: conjunctiva pink, EOMI. ABSENT: scleral icterus Ear exam: PRESENT: normal external ear exam Mouth exam: PRESENT: moist, tongue midline Neck exam: ABSENT: carotid bruit, JVD, lymphadenopathy, thyromegaly Respiratory exam: PRESENT: clear to auscultation hattie. ABSENT: rales, rhonchi, wheezes Cardiovascular exam: PRESENT: RRR. ABSENT: diastolic murmur, rubs, systolic murmur Pulses: PRESENT: normal dorsalis pedis pul Vascular exam: PRESENT: normal capillary refill GI/Abdominal exam: PRESENT: normal bowel sounds, soft. ABSENT: distended, guarding, mass, organolmegaly, rebound, tenderness Rectal exam: PRESENT: deferred Extremities exam: PRESENT: full ROM, tenderness - left 4th metacarpal joint tenderness to palpation.. ABSENT: calf tenderness, clubbing, pedal edema Musculoskeletal exam: PRESENT: full ROM Neurological exam: PRESENT: alert, awake, oriented to person, oriented to place , oriented to time, oriented to situation, CN II-XII grossly intact. ABSENT: motor sensory deficit Psychiatric exam: PRESENT: appropriate affect, normal mood. ABSENT: homicidal ideation, suicidal ideation Skin exam: PRESENT: dry, intact, warm. ABSENT: cyanosis, rash Results Laboratory Results: 11/14/17 07:56 11/14/17 07:56 11/11/17 11/12/17 11/13/17 05:55 07:15 05:03 Creatine Kinase 1190 H 393 H 154 H Impressions: Renal Ultrasound 11/10/17 00:00 IMPRESSION: Very limited study with no obvious abnormality or explanation for the gross hematuria. Chest X-Ray 11/10/17 14:20 IMPRESSION: NO ACUTE RADIOGRAPHIC FINDING IN THE CHEST. Head CT 11/10/17 15:32 IMPRESSION: NORMAL BRAIN CT WITHOUT CONTRAST. EVIDENCE OF ACUTE STROKE: NO Lower Extremity MRI 11/12/17 00:00 IMPRESSION: Trace effusion. No marrow edema to suggest osteomyelitis. Adjacent muscles and subcutaneous tissues show diffuse soft tissue edema- swelling without defined fluid collection. Assessment & Plan - Diagnosis (1) Left hand pain Is this a current diagnosis for this admission?: Yes Plan: Will check Xray of left hand to evaluate for osteo. Will continue current antibiotics. (2) Cellulitis of right lower extremity Is this a current diagnosis for this admission?: Yes Plan: Will continue antibiotics. (3) Bacteremia due to Enterococcus Is this a current diagnosis for this admission?: Yes Plan: Will continue antibiotics. (4) Leukocytosis, unspecified Qualifiers: Leukocytosis type: unspecified Qualified Code(s): D72.829 - Elevated white blood cell count, unspecified Is this a current diagnosis for this admission?: Yes Plan: Resolved. (5) Osteoarthritis Qualifiers: Osteoarthritis location: unspecified site Is this a current diagnosis for this admission?: Yes Plan: Will continue current medications (6) Rhabdomyolysis Qualifiers: Encounter type: initial encounter Is this a current diagnosis for this admission?: Yes Plan: Resolved. (7) Rhinitis, allergic Qualifiers: Allergic rhinitis trigger: unspecified Is this a current diagnosis for this admission?: Yes Plan: supportive care. - Time Time Spent with patient: 15-24 minutes
--- NOTE | 2017-11-15 18:04 | RADIOLOGY REPORT (SQ) ---
EXAM DESCRIPTION: HAND LEFT 3 VIEWS COMPLETED DATE/TIME: 11/15/2017 5:56 pm REASON FOR STUDY: Left hand 4th metacarpal joint COMPARISON: None. EXAM PARAMETERS: NUMBER OF VIEWS: Three views. TECHNIQUE: AP, lateral and oblique radiographic images acquired of the left hand. LIMITATIONS: None. FINDINGS: MINERALIZATION: Normal. BONES: No acute fracture or dislocation. No worrisome bone lesions. JOINTS: No effusions. SOFT TISSUES: No soft tissue swelling. No foreign body. OTHER: IV visualized. IMPRESSION: NO RADIOGRAPHIC EVIDENCE OF ACUTE INJURY. TECHNICAL DOCUMENTATION: JOB ID: [id number] [employer]- All Rights Reserved Reading location - IP/workstation name: [email or web address]
[2017-11-15] MEDS: CLONAZEPAM 1 MG TABLET PO SCH (21:40)
[2017-11-15] MEDS: TRAZODONE HCL 50 MG TABLET PO PRN (21:40)
[2017-11-15] MEDS: ZOLPIDEM TARTRATE 5 MG TABLET PO SCH (21:41)
[2017-11-16] MEDS: VANCOMYCIN HCL 1,000 MG in DEXTROSE 5%-WATER 250 ML IV SCH ×3 (01:55→18:13)
[2017-11-16] MEDS: POTASSI CL 20 MEQ/NS 1L 1,000 ML IV PRN ×2 (01:55→15:14)
[2017-11-16] MEDS: PENICILLIN V POTASSIUM 500 MG TABLET PO SCH ×4 (06:15→23:03)
[2017-11-16] MEDS: LANSOPRAZOLE 30 MG TAB.RAP.DR PO SCH (06:15)
[2017-11-16 07:21] LABS: ABSOLUTE BASOPHILS # (AUTO) 0.1 10^3/uL (0.0-0.2); ABSOLUTE EOSINOPHILS # (AUTO) 0.2 10^3/uL (0.0-0.6); ABSOLUTE LYMPHOCYTES (AUTO) 1.5 10^3/uL (0.5-4.7); ABSOLUTE MONOCYTES (AUTO) 0.7 10^3/uL (0.1-1.4); ABSOLUTE NEUT (AUTO) 3.5 10^3/uL (1.7-8.2); BASOPHILS % (AUTO) 0.9 % (0-2); EOSINOPHILS % (AUTO) 2.6 % (0-6); HEMATOCRIT 36.6 % (36.0-47.0); HEMOGLOBIN 12.2 g/dL (12.0-15.5); LYMPHOCYTES % (AUTO) 25.8 % (13-45); MEAN CORPUSCULAR HEMOGLOBIN 30.2 pg (27.0-33.4); MEAN CORPUSCULAR HGB CONC 33.4 g/dL (32.0-36.0); MEAN CORPUSCULAR VOLUME 91 fl (80-97); PLATELET COUNT 308 10^3/uL (150-450); RED BLOOD COUNT 4.04 10^6/uL (3.72-5.28); RED CELL DISTRIBUTION WIDTH 14.5 % (11.5-14.0); SEGMENTED NEUTROPHILS % (AUTO) 59.7 % (42-78); TOTAL CELLS COUNTED % (AUTO) 100 %; WHITE BLOOD COUNT 5.9 10^3/uL (4.0-10.5)
[2017-11-16 07:35] LABS: ALANINE AMINOTRANSFERASE 50 U/L (9-52); ALBUMIN 2.8 g/dL (3.5-5.0); ALKALINE PHOSPHATASE 104 U/L (38-126); ANION GAP 8 (5-19); ASPARTATE AMINO TRANSFERASE 27 U/L (14-36); BILIRUBIN,DIRECT 0.3 mg/dL (0.0-0.4); BILIRUBIN,TOTAL 0.5 mg/dL (0.2-1.3); BLOOD UREA NITROGEN 10 mg/dL (7-20); CALCIUM 8.7 mg/dL (8.4-10.2); CARBON DIOXIDE 27 mmol/L (22-30); CHLORIDE 104 mmol/L (98-107); GLUCOSE 201 mg/dL (75-110); POTASSIUM 4.2 mmol/L (3.6-5.0); SODIUM 139.1 mmol/L (137-145); TOTAL PROTEIN 5.2 g/dL (6.3-8.2)
[2017-11-16] MEDS: INSULIN LISPRO 100 UNIT/ML 3 ML VIAL SUBCUT SCH ×3 (09:17→19:16)
[2017-11-16] MEDS: ENOXAPARIN SODIUM INJ 40 MG/0.4 ML DISP.SYRIN SUBCUT SCH (10:33)
[2017-11-16] MEDS: PAROXETINE HCL 20 MG TABLET PO SCH (10:35)
[2017-11-16] MEDS: LOSARTAN POTASSIUM 25 MG TABLET PO SCH (10:35)
[2017-11-16] MEDS: TRIAMCINOLONE ACETONIDE 0.5% CREAM 15 GM TP SCH ×2 (10:36→18:13)
[2017-11-16] MEDS: LORATADINE 10 MG TABLET PO SCH (10:38)
[2017-11-16] MEDS: FLUTICASONE NASAL SPRAY 50 MCG/SPRY 120 SPRAY/16 GM NASL SCH (10:38)
--- NOTE | 2017-11-16 13:05 | PDOC PROGRESS REPORT ---
Subjective Progress Note for:: 11/16/17 Subjective:: No new issues. Reason For Visit: RHABDOMYOLYSIS/GROSS HEMATURIA/LEUKOCYTOSIS Physical Exam Vital Signs: Temp Pulse Resp BP Pulse Ox 98.3 F 81 20 163/83 H 94 11/16/17 11:44 11/16/17 11:44 11/16/17 11:44 11/16/17 11:44 11/16/17 11:44 Intake & Output 11/15/17 11/16/17 11/17/17 06:59 06:59 06:59 Intake Total 3805 4200 Output Total 2500 5250 Balance 1305 -1050 Weight 114.2 kg 117.9 kg General appearance: PRESENT: no acute distress, well-developed, well-nourished Head exam: PRESENT: atraumatic, normocephalic Eye exam: PRESENT: conjunctiva pink, EOMI, PERRLA. ABSENT: scleral icterus Ear exam: PRESENT: normal external ear exam Mouth exam: PRESENT: moist, tongue midline Neck exam: ABSENT: carotid bruit, JVD, lymphadenopathy, thyromegaly Respiratory exam: PRESENT: clear to auscultation hattie. ABSENT: rales, rhonchi, wheezes Cardiovascular exam: PRESENT: RRR. ABSENT: diastolic murmur, rubs, systolic murmur Pulses: PRESENT: normal dorsalis pedis pul Vascular exam: PRESENT: normal capillary refill GI/Abdominal exam: PRESENT: normal bowel sounds, soft. ABSENT: distended, guarding, mass, organolmegaly, rebound, tenderness Rectal exam: PRESENT: deferred Extremities exam: PRESENT: tenderness - right leg erythema and warmth. ABSENT: calf tenderness, clubbing, pedal edema Neurological exam: PRESENT: alert, awake, oriented to person, oriented to place , oriented to time, oriented to situation, CN II-XII grossly intact. ABSENT: motor sensory deficit Psychiatric exam: PRESENT: appropriate affect, normal mood. ABSENT: homicidal ideation, suicidal ideation Skin exam: PRESENT: dry, intact, warm. ABSENT: cyanosis, rash Results Laboratory Results: 11/16/17 06:43 11/16/17 06:43 11/16/17 11/16/17 06:43 06:43 WBC 5.9 RBC 4.04 Hgb 12.2 Hct 36.6 MCV 91 MCH 30.2 MCHC 33.4 RDW 14.5 H Plt Count 308 Seg Neutrophils % 59.7 Lymphocytes % 25.8 Monocytes % 11.0 Eosinophils % 2.6 Basophils % 0.9 Absolute Neutrophils 3.5 Absolute Lymphocytes 1.5 Absolute Monocytes 0.7 Absolute Eosinophils 0.2 Absolute Basophils 0.1 Sodium 139.1 Potassium 4.2 Chloride 104 Carbon Dioxide 27 Anion Gap 8 BUN 10 Creatinine 0.82 Est GFR ( Amer) > 60 Est GFR (Non-Af Amer) > 60 Glucose 201 H Calcium 8.7 Magnesium 1.9 Total Bilirubin 0.5 AST 27 ALT 50 Alkaline Phosphatase 104 Total Protein 5.2 L Albumin 2.8 L 11/11/17 11/12/17 11/13/17 05:55 07:15 05:03 Creatine Kinase 1190 H 393 H 154 H Impressions: Renal Ultrasound 11/10/17 00:00 IMPRESSION: Very limited study with no obvious abnormality or explanation for the gross hematuria. Chest X-Ray 11/10/17 14:20 IMPRESSION: NO ACUTE RADIOGRAPHIC FINDING IN THE CHEST. Head CT 11/10/17 15:32 IMPRESSION: NORMAL BRAIN CT WITHOUT CONTRAST. EVIDENCE OF ACUTE STROKE: NO Lower Extremity MRI 11/12/17 00:00 IMPRESSION: Trace effusion. No marrow edema to suggest osteomyelitis. Adjacent muscles and subcutaneous tissues show diffuse soft tissue edema- swelling without defined fluid collection. Hand X-Ray 11/15/17 00:00 IMPRESSION: NO RADIOGRAPHIC EVIDENCE OF ACUTE INJURY. Assessment & Plan - Diagnosis (1) Left hand pain Is this a current diagnosis for this admission?: Yes Plan: No signs of osteomyelitis. Will continue Vancomycin. (2) Cellulitis of right lower extremity Is this a current diagnosis for this admission?: Yes Plan: Will continue antibiotics. (3) Bacteremia due to Enterococcus Is this a current diagnosis for this admission?: Yes Plan: Will continue antibiotics. (4) Leukocytosis, unspecified Qualifiers: Leukocytosis type: unspecified Qualified Code(s): D72.829 - Elevated white blood cell count, unspecified Is this a current diagnosis for this admission?: Yes Plan: Resolved. (5) Osteoarthritis Qualifiers: Osteoarthritis location: unspecified site Is this a current diagnosis for this admission?: Yes Plan: Will continue current medications (6) Rhabdomyolysis Qualifiers: Encounter type: initial encounter Is this a current diagnosis for this admission?: Yes Plan: Resolved. (7) Rhinitis, allergic Qualifiers: Allergic rhinitis trigger: unspecified Is this a current diagnosis for this admission?: Yes Plan: supportive care. - Time Time Spent with patient: 15-24 minutes
[2017-11-16] MEDS: INSULIN LISPRO 100 UNIT/ML 3 ML VIAL SUBCUT PRN (14:02)
[2017-11-16] MEDS: ZOLPIDEM TARTRATE 5 MG TABLET PO SCH (22:08)
[2017-11-16] MEDS: TRAZODONE HCL 50 MG TABLET PO PRN (22:17)
[2017-11-16] MEDS: CLONAZEPAM 1 MG TABLET PO SCH (22:17)
[2017-11-17] MEDS: VANCOMYCIN HCL 1,000 MG in DEXTROSE 5%-WATER 250 ML IV SCH ×2 (01:35→09:54)
[2017-11-17] MEDS: INSULIN LISPRO 100 UNIT/ML 3 ML VIAL SUBCUT PRN ×2 (03:00→11:51)
[2017-11-17] MEDS: PENICILLIN V POTASSIUM 500 MG TABLET PO SCH ×2 (06:06→11:51)
[2017-11-17] MEDS: LANSOPRAZOLE 30 MG TAB.RAP.DR PO SCH (06:06)
[2017-11-17] MEDS: POTASSI CL 20 MEQ/NS 1L 1,000 ML IV PRN (06:07)
[2017-11-17 06:41] LABS: ABSOLUTE BASOPHILS # (AUTO) 0.1 10^3/uL (0.0-0.2); ABSOLUTE EOSINOPHILS # (AUTO) 0.1 10^3/uL (0.0-0.6); ABSOLUTE LYMPHOCYTES (AUTO) 1.6 10^3/uL (0.5-4.7); ABSOLUTE MONOCYTES (AUTO) 0.7 10^3/uL (0.1-1.4); ABSOLUTE NEUT (AUTO) 3.3 10^3/uL (1.7-8.2); EOSINOPHILS % (AUTO) 1.8 % (0-6); HEMATOCRIT 37.3 % (36.0-47.0); HEMOGLOBIN 12.5 g/dL (12.0-15.5); LYMPHOCYTES % (AUTO) 27.8 % (13-45); MEAN CORPUSCULAR HEMOGLOBIN 30.4 pg (27.0-33.4); MEAN CORPUSCULAR HGB CONC 33.5 g/dL (32.0-36.0); MEAN CORPUSCULAR VOLUME 91 fl (80-97); MONOCYTES % (AUTO) 12.1 % (3-13); PLATELET COUNT 333 10^3/uL (150-450); RED BLOOD COUNT 4.12 10^6/uL (3.72-5.28); RED CELL DISTRIBUTION WIDTH 14.2 % (11.5-14.0); SEGMENTED NEUTROPHILS % (AUTO) 57.3 % (42-78); TOTAL CELLS COUNTED % (AUTO) 100 %; WHITE BLOOD COUNT 5.7 10^3/uL (4.0-10.5)
[2017-11-17 07:02] LABS: ALANINE AMINOTRANSFERASE 47 U/L (9-52); ALBUMIN 2.9 g/dL (3.5-5.0); ALKALINE PHOSPHATASE 94 U/L (38-126); ANION GAP 7 (5-19); ASPARTATE AMINO TRANSFERASE 26 U/L (14-36); BILIRUBIN,DIRECT 0.4 mg/dL (0.0-0.4); BILIRUBIN,TOTAL 0.4 mg/dL (0.2-1.3); BLOOD UREA NITROGEN 11 mg/dL (7-20); CALCIUM 8.8 mg/dL (8.4-10.2); CARBON DIOXIDE 29 mmol/L (22-30); CHLORIDE 104 mmol/L (98-107); GLUCOSE 215 mg/dL (75-110); SODIUM 140.2 mmol/L (137-145); TOTAL PROTEIN 5.7 g/dL (6.3-8.2)
[2017-11-17] MEDS ORDERED: ONDANSETRON HCL INJ/PF 4 MG/2 ML SDV IV PRN (08:00)
[2017-11-17] MEDS: ENOXAPARIN SODIUM INJ 40 MG/0.4 ML DISP.SYRIN SUBCUT SCH (09:52)
[2017-11-17] MEDS: LOSARTAN POTASSIUM 25 MG TABLET PO SCH (09:54)
[2017-11-17] MEDS: PAROXETINE HCL 20 MG TABLET PO SCH (09:54)
[2017-11-17] MEDS: INSULIN LISPRO 100 UNIT/ML 3 ML VIAL SUBCUT SCH ×2 (09:55→11:51)
[2017-11-17] MEDS: LORATADINE 10 MG TABLET PO SCH (09:55)
[2017-11-17] MEDS: FLUTICASONE NASAL SPRAY 50 MCG/SPRY 120 SPRAY/16 GM NASL SCH (09:55)
[2017-11-17] MEDS: TRIAMCINOLONE ACETONIDE 0.5% CREAM 15 GM TP SCH (09:55)
[2017-11-17 13:38] VITALS: BP 155/78
--- NOTE | 2017-11-17 15:55 | PDOC DISCHARGE SUMMARY ---
General - Admit/Disc Date/PCP Admission Date/Primary Care Provider: 11/10/17 15:58 CRYSTAL MCCURDY Discharge Date: 11/17/17 - Discharge Diagnosis (1) Cellulitis of right lower extremity Is this a current diagnosis for this admission?: Yes (2) Bacteremia due to Enterococcus Is this a current diagnosis for this admission?: Yes (3) Bacteremia due to Gram-positive bacteria Is this a current diagnosis for this admission?: Yes (4) Rhabdomyolysis Is this a current diagnosis for this admission?: Yes (5) Gross hematuria Is this a current diagnosis for this admission?: Yes (6) Leukocytosis, unspecified Is this a current diagnosis for this admission?: Yes (7) Diabetes mellitus type 2 in obese Is this a current diagnosis for this admission?: Yes (8) Hypertension Is this a current diagnosis for this admission?: Yes (9) Osteoarthritis Is this a current diagnosis for this admission?: Yes (10) Rhinitis, allergic Is this a current diagnosis for this admission?: Yes (11) Vitamin D deficiency Is this a current diagnosis for this admission?: Yes (12) Depression Is this a current diagnosis for this admission?: Yes (13) Anxiety disorder Is this a current diagnosis for this admission?: Yes (14) DVT prophylaxis Is this a current diagnosis for this admission?: Yes (15) Psoriasis Is this a current diagnosis for this admission?: Yes (16) Morbid obesity Is this a current diagnosis for this admission?: Yes - Additional Information Discharge Diet: Diabetic Prescriptions: Penicillin V Potassium [Penicillin Vk 500 mg Tablet] 500 mg PO Q6 #28 tablet Home Medications: Ergocalciferol (Vitamin D2) [Drisdol 50,000 unit (1.25MG) Capsule] 50,000 unit PO TH@0800 11/10/17 Insulin Glargine,Hum.rec.anlog [Lantus Solostar] 45 units SQ QHS 11/10/17 Trazodone HCl [Desyrel] 150 mg PO HSP PRN 11/10/17 Clonazepam [Klonopin 1 mg Tablet] 1 mg PO QHS tablet 11/17/17 Fluticasone Propionate [Flonase Nasal Snyder 50 Mcg/Snyder 16 gm] 1 spray NASL DAILY spray.pump 11/17/17 Hydrocodone/Acetaminophen [[place] 5-325 mg Tablet] 1 tab PO Q12HP PRN tablet Insulin Aspart [Novolog Flexpen] 20 units SQ AC #0 11/17/17 Loratadine [Claritin 10 mg Tablet] 10 mg PO DAILY tablet 11/17/17 Losartan Potassium [Cozaar 25 mg Tablet] 25 mg PO DAILY tablet 11/17/17 Paroxetine HCl [Paxil 20 mg Tablet] 20 mg PO DAILY tablet 11/17/17 Penicillin V Potassium [Penicillin Vk 500 mg Tablet] 500 mg PO Q6 #28 tablet History of Present Illness History of Present Illness: MARIA DEL ROSARIO ANDERSEN is a 62 year old female with hx of DM2/HTN/Psoriasis/Osteoarthritis /Rhinitis/Depression/Anxiety disorder/Vitamin D def, who was in her baseline until about 2 days prior to presentation, when she felt weak and had diarrhea, that had resolved. She also vomited a coupe of times. Her appetite was poor and she was on the floor for almost 36 hours and her could not get her up.So on the day of presentation, on account of persistence of symptoms, her called EMS and hse was brought to ER for evaluation. Her WBC was 18.7; CK was high and her urinalysis showed numerous blood. She was admitted to IMCU for Leukocytosis/Rhabdomyolysis/Hematuria. Hospital Course Hospital Course: She was admitted to IMCU for rhabdomyolysis/right leg cellulitis/Bacteremia secondary to Enterococcus fecalis/Hematuria-resolved. She was put on Zosyn and later added VancomycinThe blood culture confirmed Enterococcus fecalis, so Zosyn was D/C and Penicillin was added based on sensitivity result. We had MRI right leg that ruled out osteomyelitis. We got ECHO(TTE) that did not show features of bacterial endocarditis. She had PT/OT during her hospital stay. She did not want outpatient PT/OT and rather requested for walker. She is stable today and will be discharged home today to follow up her PCP within 1 week.Both pt and her are in agreement with this plan of care. Physical Exam Vital Signs: Temp Pulse Resp BP Pulse Ox 98.2 F 80 16 155/78 H 97 11/17/17 15:35 11/17/17 15:35 11/17/17 15:35 11/17/17 11:28 11/17/17 15:35 Intake & Output 11/16/17 11/17/17 11/18/17 06:59 06:59 06:59 Intake Total 4200 2855 222 Output Total 3311 0554 5840 Balance -1475 -8282 -1353 Weight 117.9 kg 113.2 kg General appearance: PRESENT: no acute distress, cooperative, obese, well- developed, well-nourished Head exam: PRESENT: atraumatic, normocephalic Eye exam: PRESENT: EOMI, PERRLA Ear exam: PRESENT: normal external ear exam, TM's normal bilaterally Mouth exam: PRESENT: moist, neck supple, tongue midline Neck exam: PRESENT: full ROM Respiratory exam: PRESENT: clear to auscultation hattie, symmetrical Cardiovascular exam: PRESENT: +S1, +S2 Pulses: PRESENT: +2 pedal pulses bilateral GI/Abdominal exam: PRESENT: normal bowel sounds, soft Rectal exam: PRESENT: deferred Extremities exam: PRESENT: full ROM Musculoskeletal exam: PRESENT: full ROM Neurological exam: PRESENT: alert, awake, oriented to person, oriented to place , oriented to time Psychiatric exam: PRESENT: normal mood Results Laboratory Results: 11/17/17 06:10 11/17/17 06:10 11/17/17 11/17/17 06:10 06:10 WBC 5.7 RBC 4.12 Hgb 12.5 Hct 37.3 MCV 91 MCH 30.4 MCHC 33.5 RDW 14.2 H Plt Count 333 Seg Neutrophils % 57.3 Lymphocytes % 27.8 Monocytes % 12.1 Eosinophils % 1.8 Basophils % 1.0 Absolute Neutrophils 3.3 Absolute Lymphocytes 1.6 Absolute Monocytes 0.7 Absolute Eosinophils 0.1 Absolute Basophils 0.1 Sodium 140.2 Potassium 4.0 Chloride 104 Carbon Dioxide 29 Anion Gap 7 BUN 11 Creatinine 0.98 Est GFR ( Amer) > 60 Est GFR (Non-Af Amer) 57 L Glucose 215 H Calcium 8.8 Magnesium 1.9 Total Bilirubin 0.4 AST 26 ALT 47 Alkaline Phosphatase 94 Total Protein 5.7 L Albumin 2.9 L 11/11/17 11/12/17 11/13/17 05:55 07:15 05:03 Creatine Kinase 1190 H 393 H 154 H Impressions: Renal Ultrasound 11/10/17 00:00 IMPRESSION: Very limited study with no obvious abnormality or explanation for the gross hematuria. Chest X-Ray 11/10/17 14:20 IMPRESSION: NO ACUTE RADIOGRAPHIC FINDING IN THE CHEST. Head CT 11/10/17 15:32 IMPRESSION: NORMAL BRAIN CT WITHOUT CONTRAST. EVIDENCE OF ACUTE STROKE: NO Lower Extremity MRI 11/12/17 00:00 IMPRESSION: Trace effusion. No marrow edema to suggest osteomyelitis. Adjacent muscles and subcutaneous tissues show diffuse soft tissue edema- swelling without defined fluid collection. Hand X-Ray 11/15/17 00:00 IMPRESSION: NO RADIOGRAPHIC EVIDENCE OF ACUTE INJURY. Qualifiers - * PATEINT BEING DISCHARGED WITH ANY OF THE FOLLOWING DIAGNOSIS?: No
[2017-11-17] MEDS ORDERED: INSULIN LISPRO 100 UNIT/ML 3 ML VIAL SUBCUT SCH (16:00)
--- NOTE | 2017-11-27 14:27 | Physician Advisory Note ---
Physician Advisor ProgressNote .: Pursuant to the plan for [facility], I have reviewed the medical record for this patient. Physician Advisor Statement: 62yo with DM, past lymphoma, no underlying lung disease, presented having felt "sick" for 4 days: N/V x 2days, unable to stand so lying on floor x 2 days. She was volume-depleted, with Tmax 100.1, HR persistently 90s-100s, RR persistently 20s-30s, BP initially 134/ 68, dropping down to 90s systolic more than once, with MAP as low as 70 on first day & into the 60s on 2nd day. O2 sat dropped as low as 90% on RA (so P/ F ratio fo 276) early on as well, with no SOB or lung findings on exam or CXR to explain the hypoxemia. Lactate was high at 3.2. WBC was 18.7 w/Lt shift. - She was given broad spectrum abx IV & IVF bolus 1L then 125ml/hr. Cultures grew enterococcus in both BCs. She therefore had a SOFA score of 3 (need only 2 for dx sepsis), & 3 of 4 Sepsis -2 criteria, and appears to have been treated appropriately for possible sepsis. ED physician gave dx "sepsis". Attending documented "bacteremia". -- > [employer] Machine Operator would ordinarily simply code "bacteremia" because that is what the attending stated, but this case had several (+) findings that COULD indicate sepsis, so therefore there is a query to be certain of attending's impression. Please document, as addendum to DCS, whether pt had: 1. "possible sepsis, due to cellulitis, evidenced by tachycardia, tachypnea, hypotension, leukocytosis, hypoxemia with P/F ratio down to 276, and hypotension , all due to sepsis, with MAP dropping into the 60s, and hyperlactatemia - On further consideration of this patient's presentation, she did not have simple bacteremia but actually sepsis" (pt was very sick clinically in 1st 24-48 hrs, more than just volume depletion/cellulitis/rhabdo alone) OR "acute hypotension/tachycardia/tachypnea/hypoxemia/hypotension in this case were adequately explained by her cellulitis, dehydration, rhabdo/.... - I don' t think she had actual sepsis" (pt was not really that clinically ill, just overly dehydrated, etc.) Definitions: "Bacteremia" means bacteria in blood, without any resultant signs/sx from it - there is no sepsis. "Sepsis" means systemic evidence of infection from bacteria in blood, with acute organ dysfunction due to sepsis. If a chart states both "sepsis" and "bacteremia", the engineering technologist is required to query the attending as to which is meant if it is not spelled out explicitly. Thanks! CK
== END 2017-11-17 16:11 | disposition home or self-care (01) | DRG 558 ==
LOC: ER 13:58 → EH 15:58 → 3S 22:42
PROVIDERS: ADMIT Internal Medicine; ATTEND Internal Medicine
DX: M62.82 Rhabdomyolysis (principal); L03.115 Cellulitis of right lower limb; Z68.41 Body mass index [BMI] 40.0-44.9, adult; R78.81 Bacteremia; R31.0 Gross hematuria; E11.9 Type 2 diabetes mellitus without complications; J30.9 Allergic rhinitis, unspecified; E55.9 Vitamin D deficiency, unspecified; F32.9 Major depressive disorder, single episode, unspecified; F41.9 Anxiety disorder, unspecified; I10 Essential (primary) hypertension; E66.9 Obesity, unspecified; D72.829 Elevated white blood cell count, unspecified; E86.0 Dehydration; L40.9 Psoriasis, unspecified; R79.89 Other specified abnormal findings of blood chemistry; M15.9 Polyosteoarthritis, unspecified; B95.2 Enterococcus as the cause of diseases classified elsewhere; Z91.19 Patient's noncompliance with other medical treatment and regimen; Z90.49 Acquired absence of other specified parts of digestive tract; Z98.51 Tubal ligation status; Z88.8 Allergy status to other drugs, medicaments and biological substances; Z85.72 Personal history of non-Hodgkin lymphomas; Z92.21 Personal history of antineoplastic chemotherapy; Z79.4 Long term (current) use of insulin
CPT/HCPCS: 36415; 51702; 70450; 71045; 76775; 80053; 80061; 80202; 81001; 82550; 82553; 82565; 82803; 82962; 83036; 83605; 83690; 83735; 84443; 84484; 85025; 87040; 87077; 87086; 87186; 93005; 93010; 93306; 96374; 99291; G8978-GP; G8979-GP; J0696; J1650; J1815; J2543; J3370; J3480; J3490; J7030; J7060

== ENCOUNTER 2017-12-08 09:42 | Emergency (ER) | payer MEDICARE ==
[2017-12-08] MEDS ORDERED: NORMAL SALINE 1000 ML 1,000 ML IV ONE (09:48)
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
[2017-12-08 10:33] LABS: VENOUS BLOOD BASE EXCESS 2.4 mmol/L; VENOUS BLOOD HCO3 27.3 mmol/L (20-32); VENOUS BLOOD PCO2 43.1 mmHg (35-63); VENOUS BLOOD PH 7.42 (7.30-7.42)
[2017-12-08 10:38] LABS: ABSOLUTE BASOPHILS # (AUTO) 0.1 10^3/uL (0.0-0.2); ABSOLUTE EOSINOPHILS # (AUTO) 0.1 10^3/uL (0.0-0.6); ABSOLUTE LYMPHOCYTES (AUTO) 2.5 10^3/uL (0.5-4.7); ABSOLUTE MONOCYTES (AUTO) 0.5 10^3/uL (0.1-1.4); ABSOLUTE NEUT (AUTO) 6.3 10^3/uL (1.7-8.2); BASOPHILS % (AUTO) 0.7 % (0-2); EOSINOPHILS % (AUTO) 0.7 % (0-6); HEMATOCRIT 44.9 % (36.0-47.0); HEMOGLOBIN 15.1 g/dL (12.0-15.5); LYMPHOCYTES % (AUTO) 26.2 % (13-45); MEAN CORPUSCULAR HEMOGLOBIN 30.2 pg (27.0-33.4); MEAN CORPUSCULAR HGB CONC 33.6 g/dL (32.0-36.0); MEAN CORPUSCULAR VOLUME 90 fl (80-97); MONOCYTES % (AUTO) 5.6 % (3-13); PLATELET COUNT 445 10^3/uL (150-450); RED BLOOD COUNT 4.99 10^6/uL (3.72-5.28); RED CELL DISTRIBUTION WIDTH 14.8 % (11.5-14.0); SEGMENTED NEUTROPHILS % (AUTO) 66.8 % (42-78); TOTAL CELLS COUNTED % (AUTO) 100 %; WHITE BLOOD COUNT 9.4 10^3/uL (4.0-10.5)
[2017-12-08 10:50] LABS: ALANINE AMINOTRANSFERASE 16 U/L (9-52); ALBUMIN 4.6 g/dL (3.5-5.0); ALKALINE PHOSPHATASE 76 U/L (38-126); ANION GAP 18 (5-19); ASPARTATE AMINO TRANSFERASE 28 U/L (14-36); BILIRUBIN,DIRECT 0.4 mg/dL (0.0-0.4); BILIRUBIN,TOTAL 0.7 mg/dL (0.2-1.3); BLOOD UREA NITROGEN 29 mg/dL (7-20); CALCIUM 10.1 mg/dL (8.4-10.2); CARBON DIOXIDE 24 mmol/L (22-30); CHLORIDE 97 mmol/L (98-107); CREATINE KINASE 42 U/L (30-135); GLUCOSE 288 mg/dL (75-110); POTASSIUM 4.3 mmol/L (3.6-5.0); SODIUM 139.2 mmol/L (137-145); TOTAL PROTEIN 8.5 g/dL (6.3-8.2)
[2017-12-08] MEDS ORDERED: IBUPROFEN 800 MG TABLET PO ONE ×2 (11:59→20:50)
[2017-12-08 12:00] LABS: APPEARANCE,URINE CLEAR; BILIRUBIN,URINE NEGATIVE (NEGATIVE); COLOR,URINE YELLOW; GLUCOSE, URINE >=500 mg/dL (NEGATIVE); KETONES,URINE TRACE mg/dL (NEGATIVE); LEUKOCYTE ESTERASE,URINE NEGATIVE (NEGATIVE); NITRITE,URINE NEGATIVE (NEGATIVE); PROTEIN,URINE >=500 mg/dL (NEGATIVE); URINE SPECIFIC GRAVITY 1.012; UROBILINOGEN,URINE NEGATIVE mg/dL (<2.0)
--- NOTE | 2017-12-08 12:51 | RADIOLOGY REPORT (SQ) ---
EXAM DESCRIPTION: SHOULDER LEFT 2 OR MORE VIEWS COMPLETED DATE/TIME: 12/08/2017 12:39 pm REASON FOR STUDY: left shoulder pain COMPARISON: None. NUMBER OF VIEWS: Three view. TECHNIQUE: Internal rotation, external rotation, and Y view images acquired of the left shoulder. LIMITATIONS: None. FINDINGS: MINERALIZATION: Normal. BONES: No acute fracture or dislocation. No worrisome bone lesions. Small osteophytes. GLENOHUMERAL JOINT: No significant findings. ACROMIOCLAVICULAR JOINT: Small osteophytes. SOFT TISSUES: No calcifications. VISUALIZED RIBS, SPINE, AND LUNG: No other significant finding. OTHER: No other significant finding. IMPRESSION: MILD DEGENERATIVE CHANGES. NO ACUTE FINDINGS. TECHNICAL DOCUMENTATION: JOB ID: [id number] [employer]- All Rights Reserved Reading location - IP/workstation name: [email or web address]
--- NOTE | 2017-12-08 15:11 | EKG REPORT ---
SEVERITY:- ABNORMAL ECG - SINUS RHYTHM INFERIOR INFARCT, AGE INDETERMINATE LATERAL INFARCT, AGE INDETERMINATE ANTERIOR INFARCT, OLD BORDERLINE PROLONGED QT INTERVAL : Confirmed by: Torie Toribio 08-Dec-2017 15:10:30
[2017-12-09] MEDS ORDERED: ONDANSETRON 4 MG TAB.RAPDIS PO ONE (04:08)
[2017-12-09] MEDS ORDERED: IBUPROFEN 800 MG TABLET PO ONE (04:08)
[2017-12-09] MEDS ORDERED: NORMAL SALINE 1000 ML 1,000 ML IV ONE (09:25)
[2017-12-09] MEDS ORDERED: HYDROCODONE/ACETAMINOPHEN 5-325 MG TABLET PO ONE (09:58)
[2017-12-09] MEDS ORDERED: INSULIN LISPRO 100 UNIT/ML 3 ML VIAL SUBCUT ONE (11:06)
[2017-12-09] MEDS ORDERED: (PENDING PHARMACY ID) (Trazodone Hcl [Desyrel] 150 MG) PO PRN (16:18)
[2017-12-09] MEDS ORDERED: TRAZODONE HCL 50 MG TABLET PO PRN (16:23)
[2017-12-09] MEDS: HYDROCODONE/ACETAMINOPHEN 5-325 MG TABLET PO PRN (19:11)
[2017-12-09] MEDS ORDERED: INSULIN GLARGINE,HUM.REC.ANLOG 300 UNIT/3 ML INSULN.PEN SUBCUT SCH (22:00)
[2017-12-09] MEDS ORDERED: CLONAZEPAM 1 MG TABLET PO SCH (22:00)
[2017-12-09] MEDS ORDERED: INSULIN GLARGINE,HUM.REC.ANLOG 300 UNIT/3 ML INSULN.PEN SUBCUT ONE (23:49)
[2017-12-10] MEDS ORDERED: (PENDING PHARMACY ID) (Insulin Aspart [Novolog Flexpen] 20 UNITS) SQ SCH (08:00)
[2017-12-10] MEDS: INSULIN LISPRO 100 UNIT/ML 3 ML VIAL SUBCUT SCH ×3 (08:02→16:35)
[2017-12-10] MEDS: HYDROCODONE/ACETAMINOPHEN 5-325 MG TABLET PO PRN (08:04)
[2017-12-10] MEDS ORDERED: PAROXETINE HCL 20 MG TABLET PO SCH (10:00)
[2017-12-10] MEDS ORDERED: LOSARTAN POTASSIUM 25 MG TABLET PO SCH (10:00)
[2017-12-10] MEDS ORDERED: CEFTRIAXONE INJ 1000 MG VIAL IV ONE (10:15)
--- NOTE | 2017-12-10 10:17 | ER Document Report ---
Doctor's Note Notes: 12/10/17 10:15 Rounds: Chart reviewed and patient interviewed. Patient is complaining of generalized weakness for several days. She has been in this department for 2 days. She is a diabetic and her blood sugars have been running high. She also had a blood culture done on admission showed positive result on 1 of 2 tubes. Patient was in the hospital here and discharged home on November 19. She was treated for rhabdomyolysis and bacteremia. I do not know of any current antibiotics being given. Vital signs are all essentially normal. Patient is afebrile. Urine does not show any evidence of infection. CBC showed no significant white count elevation. My understanding is that discharge planning is working on getting this patient transferred to [facility]. There is supposed to be in interview this afternoon with Dr. Kovacs. Patient appears to be medically stable for transfer or discharge. Cesar Charles MD
[2017-12-10 13:51] LABS: ABSOLUTE BASOPHILS # (AUTO) 0.1 10^3/uL (0.0-0.2); ABSOLUTE EOSINOPHILS # (AUTO) 0.1 10^3/uL (0.0-0.6); ABSOLUTE LYMPHOCYTES (AUTO) 2.3 10^3/uL (0.5-4.7); ABSOLUTE MONOCYTES (AUTO) 0.8 10^3/uL (0.1-1.4); ABSOLUTE NEUT (AUTO) 7.2 10^3/uL (1.7-8.2); BASOPHILS % (AUTO) 1.1 % (0-2); EOSINOPHILS % (AUTO) 0.6 % (0-6); HEMATOCRIT 49.2 % (36.0-47.0); HEMOGLOBIN 16.5 g/dL (12.0-15.5); MEAN CORPUSCULAR HEMOGLOBIN 29.9 pg (27.0-33.4); MEAN CORPUSCULAR HGB CONC 33.5 g/dL (32.0-36.0); MEAN CORPUSCULAR VOLUME 89 fl (80-97); MONOCYTES % (AUTO) 7.8 % (3-13); PLATELET COUNT 412 10^3/uL (150-450); RED BLOOD COUNT 5.52 10^6/uL (3.72-5.28); RED CELL DISTRIBUTION WIDTH 14.7 % (11.5-14.0); SEGMENTED NEUTROPHILS % (AUTO) 68.5 % (42-78); TOTAL CELLS COUNTED % (AUTO) 100 %; WHITE BLOOD COUNT 10.5 10^3/uL (4.0-10.5)
[2017-12-10 19:26] VITALS: BP 162/99
[2017-12-11] MEDS ORDERED: ERGOCALCIFEROL (VITAMIN D2) 50000 UNIT (1.25 MG) CAPSULE PO SCH (08:00)
== END 2017-12-10 19:31 ==
LOC: ER 09:42
DX: R53.1 Weakness (principal); M25.512 Pain in left shoulder; R20.2 Paresthesia of skin; I10 Essential (primary) hypertension; E10.9 Type 1 diabetes mellitus without complications; Z98.51 Tubal ligation status
CPT/HCPCS: 93005; 99285; 96360; 36415; 87040; 82962; 82550; 83605; 85025; 87077; 80053; 81001; 84484; 87186; 82803; 73030; 93010; A9270 ×11; J0696; J7030 ×2; G8978; G8979; J1815; S0119

== ENCOUNTER 2017-12-16 18:57 | Emergency (ER) | payer MEDICARE ==
--- NOTE | 2017-12-16 19:34 | ER Document Report ---
ED General - General TRAVEL OUTSIDE OF THE U.S. IN LAST 30 DAYS: No <MARKEL CLIFFORD - Last Filed: 12/17/17 02:38> <SHY LAINEZ - Last Filed: 12/17/17 09:38> - General Stated Complaint: ALTERED MENTAL STATUS Time Seen by Provider: 12/16/17 19:34 Notes: Patient is a 62 year old female who presents via EMS with a chief complaint of AMS with unknown onset. Last known well was roughly 3pm per facilty given she was in her room all morning and then OT/PT came to work with her. She states her back hurts but otherwise denies any chest pain, abdominal pain, pyuria, hematuria, frequency however patient is incontinent. States she feels weak but has been feeling like this for about one month. Was recently discharged after an admission for weakness, rhabdomyolosis in october and returned about a week ago due to weakness. She was then transferred to [place] for rehab. PMH: History of DVTs, anxiety, hypertension, depression, psoriasis, diabetes, h/ o lymphoma (MARKEL CLIFFORD) - Related Data Allergies/Adverse Reactions: lisinopril Allergy (Severe, Verified 12/23/16 09:33) cough Past Medical History - Social History Family History: Reviewed & Not Pertinent - Past Medical History Cardiac Medical History: Reports: Hx Hypertension - Has a prescription for lisinopril but does not take it unless she feels lik Denies: Hx Coronary Artery Disease, Hx Heart Attack Pulmonary Medical History: Denies: Hx Asthma, Hx Bronchitis, Hx COPD, Hx Pneumonia Neurological Medical History: Denies: Hx Cerebrovascular Accident, Hx Seizures Endocrine Medical History: Reports: Hx Diabetes Mellitus Type 1 Renal/ Medical History: Denies: Hx Peritoneal Dialysis Malignancy Medical History: Reports: Hx Lymphoma Musculoskeltal Medical History: Reports Hx Arthritis - generalized Past Surgical History: Reports: Hx Appendectomy, Hx Tubal Ligation - Immunizations Hx Diphtheria, Pertussis, Tetanus Vaccination: Yes Hx Pneumococcal Vaccination: 08/25/13 <MARKEL CLIFFORD - Last Filed: 12/17/17 02:38> - Social History Smoking Status: Unknown if Ever Smoked Cigarette use (# per day): No Chew tobacco use (# tins/day): No Smoking Education Provided: No <SHY LAINEZ - Last Filed: 12/17/17 09:38> Review of Systems - Review of Systems Constitutional: Weakness Cardiovascular: No symptoms reported Respiratory: No symptoms reported Gastrointestinal: No symptoms reported Musculoskeletal: See HPI Neurological/Psychological: Weakness. denies: Confusion, Lost consciousness <MARKEL CLIFFORD - Last Filed: 12/17/17 02:38> Physical Exam <MARKEL CLIFFORD - Last Filed: 12/17/17 02:38> <SHY LAINEZ - Last Filed: 12/17/17 09:38> - Vital signs Vitals: Resp Pulse Ox 20 96 12/16/17 19:07 12/16/17 19:07 - Notes Notes: PHYSICAL EXAM GENERAL: Alert, interacts well. HEAD: Normocephalic, atraumatic. EYES: Pupils equal, round, and reactive to light. Extraocular movements intact. ENT: Oral mucosa moist, tongue midline. NECK: Full range of motion. Supple. Trachea midline. LUNGS: Clear to auscultation bilaterally, no wheezes, rales, or rhonchi. No respiratory distress. HEART: Regular rate and rhythm. No murmurs, gallops, or rubs. ABDOMEN: Soft, mildly distended, nontender. No guarding, rebound, or rigidity.. Bowel sounds present in all 4 quadrants. EXTREMITIES: Moves all 4 extremities spontaneously. No edema, radial and dorsalis pedis pulses 2/4 bilaterally. No cyanosis. NEUROLOGICAL: Alert and oriented x4. Face symmetric. Tongue protrudes midline. Extraocular motions intact. Pupils are 2 mm and equally reactive. Normal speech. 5 out of 5 strength in both the distal and proximal upper extremities bilaterally. Subjective weakness of Bilateral LE's with focal srength 5/5 Sensation is grossly intact throughout. Finger to nose testing normal. Pronator drift normal. PSYCH: Normal affect, normal mood. SKIN: Warm, dry, normal turgor. No rashes or lesions noted. (MARKEL CLIFFORD) Course - Laboratory Result Diagrams: 12/16/17 19:23 12/16/17 20:30 - Diagnostic Test Radiology reviewed: Image reviewed, Reports reviewed - EKG Interpretation by Me EKG shows normal: Sinus rhythm Rate: Normal Rhythm: No: Arrthymia, A.Fib, A.Flutter When compared to previous EKG there are: No significant change <MARKEL CLIFFORD - Last Filed: 12/17/17 02:38> - Laboratory Result Diagrams: 12/16/17 19:23 12/16/17 20:30 <SHY LAINEZ - Last Filed: 12/17/17 09:38> - Re-evaluation Re-evalutation: 12/16/17 21:23 Patient is a 62-year-old female is hemodynamically stable, no acute distress and afebrile. Patient and alert and oriented upon initial evaluation without any focal neurological deficits different from her previous exams over the past [address] head shows chronic lacunar infarcts that are new since 11/09/17 CT head. MRI ordered to evaluate for underlying acute infarct. 12/16/17 23:52 MRI shows evidence of medial right temporal lobe concerning for small acute lacunar infarct. Patient has multiple small lacunar infarcts with chronic chronic small lacunar infarcts located in the bifrontal, biparietal, basal ganglia and bilateral thalamus. ABCD2 score 5. NIH 5. Patient's EKG without evidence of atrial fibrillation. Reviewed case with hospitalist Dr. Mcpherson who recommends transfer given [place] does not have ability to perform PHYLLIS 12/17/17 00:[address] Charles who states she can be transported to and from [place] for PHYLLIS and admitted to [place]. Dr Mcpherson recommending transfer to [facility] 12/17/17 01:27 Patient has been accepted to [facility] by neurology Dr Mike. Patient agrees with plan and is alert. Admits to her chronic neck pain bothering her 12/17/17 02:39 transport arranged for 4am (MARKEL CLIFFORD) 12/17/17 09:38 Transport has arrived, patient stable at this time (SHY LAINEZ) - Vital Signs Vital signs: Temp Pulse Resp BP Pulse Ox 84 17 174/110 H 98 12/17/17 06:00 12/17/17 09:09 12/17/17 09:09 12/17/17 09:09 - Laboratory Laboratory results interpreted by me: 12/16/17 12/16/17 12/16/17 19:23 20:30 20:32 WBC 13.1 H RBC 5.51 H Hgb 16.7 H Hct 49.2 H RDW 15.1 H Plt Count 559 H Absolute Neutrophils 8.8 H Sodium 132.0 L Chloride 92 L BUN 43 H Est GFR ( Amer) 53 L Est GFR (Non-Af Amer) 44 L Glucose 156 H Urine Protein 100 H Urine Glucose (UA) >=500 H Discharge <MARKEL CLIFFORD - Last Filed: 12/17/17 02:38> <SHY LAINEZ - Last Filed: 12/17/17 09:38> - Discharge Clinical Impression: CVA (cerebral vascular accident) Qualifiers: CVA mechanism: unspecified Qualified Code(s): I63.9 - Cerebral infarction, unspecified Condition: Stable Disposition: [facility] Referrals: CRYSTAL MCCURDY MD [Primary Care Provider] - Follow up as needed
[2017-12-16] MEDS ORDERED: NORMAL SALINE 1000 ML 2,000 ML IV ONE (19:38)
[2017-12-16 19:59] LABS: ABSOLUTE BASOPHILS # (AUTO) 0.1 10^3/uL (0.0-0.2); ABSOLUTE EOSINOPHILS # (AUTO) 0.2 10^3/uL (0.0-0.6); ABSOLUTE LYMPHOCYTES (AUTO) 2.8 10^3/uL (0.5-4.7); ABSOLUTE MONOCYTES (AUTO) 1.3 10^3/uL (0.1-1.4); ABSOLUTE NEUT (AUTO) 8.8 10^3/uL (1.7-8.2); BASOPHILS % (AUTO) 0.6 % (0-2); EOSINOPHILS % (AUTO) 1.3 % (0-6); HEMATOCRIT 49.2 % (36.0-47.0); HEMOGLOBIN 16.7 g/dL (12.0-15.5); LYMPHOCYTES % (AUTO) 21.4 % (13-45); MEAN CORPUSCULAR HEMOGLOBIN 30.3 pg (27.0-33.4); MEAN CORPUSCULAR HGB CONC 33.9 g/dL (32.0-36.0); MEAN CORPUSCULAR VOLUME 89 fl (80-97); MONOCYTES % (AUTO) 9.7 % (3-13); PLATELET COUNT 559 10^3/uL (150-450); RED BLOOD COUNT 5.51 10^6/uL (3.72-5.28); RED CELL DISTRIBUTION WIDTH 15.1 % (11.5-14.0); TOTAL CELLS COUNTED % (AUTO) 100 %; WHITE BLOOD COUNT 13.1 10^3/uL (4.0-10.5)
--- NOTE | 2017-12-16 20:24 | RADIOLOGY REPORT (SQ) ---
EXAM DESCRIPTION: KUB/ABDOMEN (SINGLE VIEW) COMPLETED DATE/TIME: 12/16/2017 8:13 pm REASON FOR STUDY: constipation COMPARISON: None. NUMBER OF VIEWS: One view. TECHNIQUE: Supine radiographic image of the abdomen acquired. LIMITATIONS: None. FINDINGS: BOWEL GAS PATTERN: Normal bowel gas pattern. No dilated loops. CALCIFICATIONS: No suspicious calcifications. SOFT TISSUES: No gross mass or suggestion of organomegaly. HARDWARE: None in the abdomen. BONES: No acute fracture. No worrisome bone lesions. OTHER: No other significant finding. IMPRESSION: NO RADIOGRAPHIC EVIDENCE FOR ACUTE ABDOMINAL DISEASE. TECHNICAL DOCUMENTATION: JOB ID: [id number] [employer]- All Rights Reserved Reading location - IP/workstation name: [email or web address]
--- NOTE | 2017-12-16 20:42 | RADIOLOGY REPORT (SQ) ---
EXAM DESCRIPTION: CT HEAD WITHOUT COMPLETED DATE/TIME: 12/16/2017 8:29 pm REASON FOR STUDY: AMS COMPARISON: CT brain 11/10/2017 TECHNIQUE: Axial images acquired through the brain without intravenous contrast. Images reviewed wi th bone, brain and subdural windows. Additional sagittal and coronal reconstructions were generated. Images stored on PACS. All CT scanners at this facility use dose modulation, iterative reconstruction, and/or weight based d osing when appropriate to reduce radiation dose to as low as reasonably achievable (ALARA). [facility]: Dose Right [facility]: CareDose [facility]: Dose Right [facility]: Teradose 4D [facility]: Smart Clip RADIATION DOSE: CT Rad equipment meets quality standard of care and radiation dose reduction techniq ues were employed. CTDIvol: 53.2 mGy. DLP: 937 mGy-cm. mGy. LIMITATIONS: None. FINDINGS: VENTRICLES: No hemorrhage CEREBRUM: No masses. No hemorrhage. No midline shift. No evidence for acute infarction. Spotty low attenuation in the bifrontal deep periventricular white matter, with old lacunar infarcts in the hattie ateral basal ganglia and right thalamus, chronic. CEREBELLUM: No masses. No hemorrhage. No alteration of density. No evidence for acute infarction. EXTRAAXIAL SPACES: No fluid collections. No masses. ORBITS AND GLOBE: No intra- or extraconal masses. Normal contour of globe without masses. CALVARIUM: No fracture. PARANASAL SINUSES: No fluid or mucosal thickening. SOFT TISSUES: No mass or hematoma. OTHER: No other significant finding. IMPRESSION: White matter disease with chronic lacunar basal ganglia and right thalamus infarcts. No acute changes EVIDENCE OF ACUTE STROKE: NO. COMMENT: Quality ID # [id number]: Final reports with documentation of one or more dose reduction techniques (e.g., Automated exposure control, adjustment of the mA and/or kV according to patient size, use of iterative reconstruction technique) TECHNICAL DOCUMENTATION: JOB ID: [id number] [employer]- All Rights Reserved Reading location - IP/workstation name: [email or web address]
[2017-12-16 21:02] LABS: VENOUS BLOOD BASE EXCESS 2.4 mmol/L; VENOUS BLOOD HCO3 27.3 mmol/L (20-32); VENOUS BLOOD PCO2 43.1 mmHg (35-63); VENOUS BLOOD PH 7.42 (7.30-7.42)
[2017-12-16 21:26] LABS: ALANINE AMINOTRANSFERASE 43 U/L (9-52); ALBUMIN 3.7 g/dL (3.5-5.0); ALKALINE PHOSPHATASE 67 U/L (38-126); ANION GAP 15 (5-19); ASPARTATE AMINO TRANSFERASE 22 U/L (14-36); BILIRUBIN,DIRECT 0.4 mg/dL (0.0-0.4); BILIRUBIN,TOTAL 0.5 mg/dL (0.2-1.3); BLOOD UREA NITROGEN 43 mg/dL (7-20); CALCIUM 9.8 mg/dL (8.4-10.2); CARBON DIOXIDE 25 mmol/L (22-30); CHLORIDE 92 mmol/L (98-107); GLUCOSE 156 mg/dL (75-110); TOTAL PROTEIN 6.8 g/dL (6.3-8.2)
[2017-12-16 21:27] LABS: POTASSIUM 4.2 mmol/L (3.6-5.0)
[2017-12-16] MEDS ORDERED: FENTANYL CITRATE INJ/PF 100 MCG/2 ML AMPUL IV ONE (21:27)
[2017-12-16 21:30] LABS: APPEARANCE,URINE CLEAR; BILIRUBIN,URINE NEGATIVE (NEGATIVE); COLOR,URINE YELLOW; GLUCOSE, URINE >=500 mg/dL (NEGATIVE); KETONES,URINE NEGATIVE (NEGATIVE); LEUKOCYTE ESTERASE,URINE NEGATIVE (NEGATIVE); NITRITE,URINE NEGATIVE (NEGATIVE); PROTEIN,URINE 100 mg/dL (NEGATIVE); URINE SPECIFIC GRAVITY 1.017; UROBILINOGEN,URINE NEGATIVE mg/dL (<2.0)
--- NOTE | 2017-12-16 22:41 | RADIOLOGY REPORT (SQ) ---
EXAM DESCRIPTION: MRI HEAD WITHOUT COMPLETED DATE/TIME: 12/16/2017 10:19 pm REASON FOR STUDY: AMS, CT w/ chronic ischemic changes new from 11/09 COMPARISON: CT brain 11/10/2017, 12/16/2017 TECHNIQUE: Multiplanar imaging includes non-contrasted T1, T2, FLAIR, and diffusion with ADC map seq uences. Images stored on PACS. LIMITATIONS: None. FINDINGS: ANATOMY: No developmental anomalies. Normal vascular flow voids. Pituitary fossa normal. CSF SPACES: Normal in size and contour. No hemorrhage. CEREBRUM: Diffusion weighted image number 12 is positive for restricted diffusion in the medial right temporal lobe near the hippocampus. This could represent a small acute infarct. Remainder of the cerebrum demonstrates multiple chronic lacunar infarcts scattered throughout the bif rontal and biparietal white matter, right and left thalamus and bilateral basal ganglia. POSTERIOR FOSSA: No signal alteration. No hemorrhage. No edema, masses or mass effect. Internal josefa tory canals, cerebello-pontine angles, mastoids normal. DIFFUSION IMAGING: Positive in the right medial temporal lobe axial image 12, worrisome for a small a cute nonhemorrhagic infarct. ORBITS: No masses. Globes normal. PARANASAL SINUSES: No fluid levels. Mucosa normal. OTHER: No other significant finding. IMPRESSION: Punctate focus of positive diffusion in the medial right temporal lobe near the hippocam pus, worrisome for small acute lacunar infarct Multiple small lacunar infarcts, chronic, in the bifrontal and biparietal white matter, basal ganglia and right and left thalamus. EVIDENCE OF ACUTE STROKE: Yes TECHNICAL DOCUMENTATION: JOB ID: [id number] [employer]- All Rights Reserved Reading location - IP/workstation name: [email or web address]
[2017-12-16] MEDS ORDERED: ASPIRIN 325 MG TABLET PO ONE (23:00)
[2017-12-16 23:27] LABS: INTERNATIONAL RATION (INR) 0.92; PROTHROMBIN TIME 12.8 SEC (11.4-15.4)
[2017-12-16 23:28] LABS: PARTIAL THROMBOPLASTIN TIME 32.8 SEC (23.5-35.8)
[2017-12-16 23:55] LABS: CREATINE KINASE MB 0.86 ng/mL (<4.55); TROPONIN I 0.022 ng/mL
[2017-12-17] MEDS ORDERED: ACETAMINOPHEN 325 MG TABLET PO ONE (00:42)
[2017-12-17] MEDS ORDERED: FENTANYL CITRATE INJ/PF 100 MCG/2 ML AMPUL IV ONE (01:47)
[2017-12-17] MEDS ORDERED: HYDROCODONE/ACETAMINOPHEN 5-325 MG TABLET PO ONE (06:58)
--- NOTE | 2017-12-17 07:27 | EKG REPORT ---
SEVERITY:- ABNORMAL ECG - SINUS RHYTHM INFERIOR INFARCT, AGE INDETERMINATE ANTERIOR INFARCT, OLD : Confirmed by: Reggie Rees MD 17-Dec-2017 07:27:12
[2017-12-17 10:09] VITALS: BP 171/85
== END 2017-12-17 10:00 | disposition short-term general hospital (02) ==
LOC: ER 18:57
DX: I63.9 Cerebral infarction, unspecified (principal); R53.1 Weakness; E10.9 Type 1 diabetes mellitus without complications; Z98.51 Tubal ligation status
CPT/HCPCS: 93005; 96376; 99285; 96361; 96374; 36415; 82553; 82550; 85025; 85610; 85730; 80053; 81001; 84484; 82803; 83605; 70551; 74018; 70450; 93010; A9270 ×3; J3010 ×2; J7030

== ENCOUNTER 2017-12-27 12:31 | Observation (INO) | payer MEDICARE ==
[2017-12-27 13:10] LABS: ABSOLUTE BASOPHILS # (AUTO) 0.1 10^3/uL (0.0-0.2); ABSOLUTE EOSINOPHILS # (AUTO) 0.1 10^3/uL (0.0-0.6); ABSOLUTE LYMPHOCYTES (AUTO) 2.4 10^3/uL (0.5-4.7); ABSOLUTE MONOCYTES (AUTO) 0.9 10^3/uL (0.1-1.4); ABSOLUTE NEUT (AUTO) 5.8 10^3/uL (1.7-8.2); BASOPHILS % (AUTO) 0.7 % (0-2); EOSINOPHILS % (AUTO) 0.7 % (0-6); HEMATOCRIT 38.6 % (36.0-47.0); HEMOGLOBIN 13.2 g/dL (12.0-15.5); LYMPHOCYTES % (AUTO) 26.1 % (13-45); MEAN CORPUSCULAR HEMOGLOBIN 30.9 pg (27.0-33.4); MEAN CORPUSCULAR HGB CONC 34.3 g/dL (32.0-36.0); MEAN CORPUSCULAR VOLUME 90 fl (80-97); MONOCYTES % (AUTO) 9.6 % (3-13); PLATELET COUNT 291 10^3/uL (150-450); RED BLOOD COUNT 4.28 10^6/uL (3.72-5.28); RED CELL DISTRIBUTION WIDTH 15.2 % (11.5-14.0); SEGMENTED NEUTROPHILS % (AUTO) 62.9 % (42-78); TOTAL CELLS COUNTED % (AUTO) 100 %; WHITE BLOOD COUNT 9.2 10^3/uL (4.0-10.5)
[2017-12-27 13:18] LABS: INTERNATIONAL RATION (INR) 0.91; PROTHROMBIN TIME 12.7 SEC (11.4-15.4)
[2017-12-27 13:19] LABS: PARTIAL THROMBOPLASTIN TIME 29.4 SEC (23.5-35.8)
[2017-12-27 13:28] LABS: ALANINE AMINOTRANSFERASE 200 U/L (9-52); ALBUMIN 3.3 g/dL (3.5-5.0); ALKALINE PHOSPHATASE 477 U/L (38-126); ANION GAP 11 (5-19); ASPARTATE AMINO TRANSFERASE 101 U/L (14-36); BILIRUBIN,DIRECT 0.4 mg/dL (0.0-0.4); BILIRUBIN,TOTAL 0.4 mg/dL (0.2-1.3); BLOOD UREA NITROGEN 29 mg/dL (7-20); CALCIUM 9.2 mg/dL (8.4-10.2); CARBON DIOXIDE 29 mmol/L (22-30); CHLORIDE 98 mmol/L (98-107); GLUCOSE 158 mg/dL (75-110); LIPASE 181.6 U/L (23-300); POTASSIUM 4.1 mmol/L (3.6-5.0); SODIUM 138.1 mmol/L (137-145)
[2017-12-27] MEDS ORDERED: FENTANYL CITRATE INJ/PF 100 MCG/2 ML AMPUL IV ONE (15:19)
--- NOTE | 2017-12-27 16:53 | ER Document Report ---
ED GI Bleed / Rectal Pain - General Chief Complaint: Rectal Bleeding Stated Complaint: RECTAL BLEEDING Time Seen by Provider: 12/27/17 12:52 Notes: Patient is here to be evaluated for rectal bleeding. She Is a resident of a local half-way, [place]. She is reportedly had some rectal bleeding last night and then more this morning along with blood clots. She does not recall ever having rectal bleeding previously. Denies any vomiting or diarrhea. No history of any bleeding disorders. Has some lower abdominal pains. Also has chronic pain in 1 of her hips. Has not had any fever. Patient was recently seen here twice for generalized weakness and falling and unable to stand. Her MRI of her brain showed diffuse demyelinating condition and she was sent to [facility], where she received IV infusions of medications for 4 days before being discharged back here 2 days ago. TRAVEL OUTSIDE OF THE [place] IN LAST 30 DAYS: No - Related Data Allergies/Adverse Reactions: lisinopril Allergy (Severe, Verified 12/23/16 09:33) cough Past Medical History - Social History Smoking Status: Never Smoker Chew tobacco use (# tins/day): No Frequency of alcohol use: None Drug Abuse: None Family History: Reviewed & Not Pertinent Patient has suicidal ideation: No Patient has homicidal ideation: No - Past Medical History Cardiac Medical History: Reports: Hx Hypertension - Has a prescription for lisinopril but does not take it unless she feels lik Neurological Medical History: Reports: Other - See HPI.. Denies: Hx Cerebrovascular Accident, Hx Seizures Endocrine Medical History: Reports: Hx Diabetes Mellitus Type 1 Malignancy Medical History: Reports: Hx Lymphoma Musculoskeltal Medical History: Reports Hx Arthritis - generalized Past Surgical History: Reports: Hx Appendectomy, Hx Tubal Ligation - Immunizations Hx Diphtheria, Pertussis, Tetanus Vaccination: Yes Hx Pneumococcal Vaccination: 08/25/13 Review of Systems - Review of Systems Notes: REVIEW OF SYSTEMS: CONSTITUTIONAL : Denies fever. EENT: Denies eye, ear, nose or mouth or throat pain or other symptoms. CARDIOVASCULAR: Denies chest pain. RESPIRATORY: Denies cough, chest congestion, or shortness of breath. GASTROINTESTINAL: see HPI. GENITOURINARY: Denies difficulty or painful urinating, urinary frequency, blood in urine. MUSCULOSKELETAL: Denies back or neck pain. Denies joint pain or swelling. Chronic hip pain SKIN: Denies rash or skin lesions. NEUROLOGICAL: Denies LOC or altered mental status, but patient has poor memory of events and refers me to her to answer questions. Denies headache. Patient is unable to stand. She can move her legs some while on the stretcher. ALL OTHER SYSTEMS REVIEWED AND NEGATIVE. Physical Exam - Vital signs Vitals: Resp Pulse Ox 11 L 98 12/27/17 12:37 12/27/17 12:37 Interpretation: Normal Notes: PHYSICAL EXAMINATION: GENERAL: Well-appearing, in no acute distress. HEAD: Atraumatic, normocephalic. EYES: Pupils equal round and reactive to light, extraocular movements intact. ENT: oropharynx clear without exudates. Moist mucous membranes. NECK: Normal range of motion, supple. LUNGS: Breath sounds clear and equal bilaterally. HEART: Regular rate and rhythm without murmurs. ABDOMEN: Soft, tender left side of abdomen, but no guarding or rebound. No masses. Rectal exam reveals moderate amount of gross red blood per rectum/ anus. No hemorrhoids seen externally. Digital exam into the rectum reveals small pieces of stool and then a larger soft stool mass. No internal hemorrhoids felt. I cannot locate a fissure, but patient does express that she is experiencing a lot of pain when I am examining the [place] and I suppose it is possible that she may be bleeding from anal fissure as 1 of the differential diagnoses. BACK: No tenderness throughout entire back. EXTREMITIES: Normal range of motion without pain. NEUROLOGICAL: Normal speech, unable to stand or walk. Can barely move her legs while laying on the stretcher.. Awake, alert, and oriented x3, but seems to have difficulty with memory of recent events, perhaps a reflection of the findings on her MRI of the brain. PSYCH: Normal mood, normal affect. SKIN: Warm, dry, no rashes. - Notes Notes: PHYSICAL EXAMINATION: GENERAL: Well-appearing, in no acute distress. HEAD: Atraumatic, normocephalic. EYES: Pupils equal round and reactive to light, extraocular movements intact. ENT: oropharynx clear without exudates. Moist mucous membranes. NECK: Normal range of motion, supple. LUNGS: Breath sounds clear and equal bilaterally. HEART: Regular rate and rhythm without murmurs. ABDOMEN: Soft, tender lower half of abdomen. No definite guarding or rebound. No masses. Rectal exam reveals gross red blood. Patient is tender to touch at the anus, but I do not see any external hemorrhoids. Digital exam rectally reveals some small pellets of stool and a large soft amount of stool, but no firm hard impaction. I do not feel any rectal or anal masses. BACK: No tenderness throughout entire back. EXTREMITIES: Normal range of motion without pain. NEUROLOGICAL: Normal speech, normal gait. Normal sensory, motor, and reflex exams. Awake, alert, and oriented x3. Cranial nerves normal. PSYCH: Normal mood, normal affect. SKIN: Warm, dry, no rashes. Course - Re-evaluation Re-evalutation: 12/27/17 16:[address] Barber, surgeon network controller, and he said he would be willing to backup the hospitalist if they will admit the patient here. Spoke with the hospitalist who will admit the patient for further evaluation. - Vital Signs Vital signs: Temp Pulse Resp BP Pulse Ox 98.4 F 28 H 142/112 H 99 12/27/17 12:57 12/27/17 17:01 12/27/17 17:01 12/27/17 17:01 - Laboratory Result Diagrams: 12/27/17 12:43 12/27/17 12:43 Laboratory results interpreted by me: 12/27/17 12/27/17 12:43 12:43 RDW 15.2 H BUN 29 H Glucose 158 H AST 101 H ALT 200 H Alkaline Phosphatase 477 H Albumin 3.3 L 12/27/17 17:03 Slightly elevated LFTs are noted and discussed with the hospitalist. - Diagnostic Test Radiology reviewed: Image reviewed, Reports reviewed - CT scan shows distended bladder, gallstones or sludge in the gallbladder. Otherwise normal. Discharge - Discharge Clinical Impression: Rectal bleeding Condition: Stable Disposition: ADMITTED INPATIENT Admitting Provider: Hospitalist Unit Admitted: Medical Floor
[2017-12-27] MEDS: POLYETHYLENE GLYCOL 3350 POWDER 17 GM/1 PACKET PO SCH (17:39)
[2017-12-27] MEDS: PANTOPRAZOLE SODIUM 40 MG VIAL IV SCH (17:39)
--- NOTE | 2017-12-27 17:48 | PDOC H&P ---
History of Present Illness Admission Date/PCP: CRYSTAL MCCURDY Patient complains of: acute rectal bleeding, abdominal pain History of Present Illness: MARIA DEL ROSARIO ANDERSEN is a 62 year old female with history significant for diabetes, peripheral neuropathy, hypertension, and obesity. Patient has had multiple hospitalizations over the past month at both [facility] and more recently at [facility]. Between hospitalizations, she has been a resident of [facility]. At [place] patient was admitted for bacteremia. 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 I do not have the records. However per her and patient (both who are poor historians), appears that she was treated with IVIG * 4. Patient is unsure if she improved following treatment. She was discharged back to [place] from [facility] (unclear discharge date). Over the last 24 hours, she has developed suprapubic abdominal tenderness. She was also noted to have bright red blood in her rectal vault. Due to this, she was prompted to come to the ED for evaluation. Currently, she denies fevers, chills, CP, SOB, abdominal pain, NV. She states that she has NOT had a bowel movement in over 2 week. She usually has BM's every day and is unsure why she is constipated. Of note, she was told at [facility] that she has internal hemorrhoids (unclear how this was determined). Patients labs were notable for Hg 13.2. BUN was slightly elevated however has been higher previously. LFTs were noted to be elevated which is new for patient. She will be admitted to hospitalist service for further management. Past Medical History Cardiac Medical History: Reports: Hypertension - Has a prescription for lisinopril but does not take it unless she feels lik Denies: Myocardial Infarction Pulmonary Medical History: Denies: Asthma, Bronchitis, Chronic Obstructive Pulmonary Disease (COPD), Pneumonia Neurological Medical History: Reports: Other - See HPI. History of Guillain Rochester? Denies: Seizures Endocrine Medical History: Reports: Diabetes Mellitus Type 1 Malignancy Medical History: Reports: Lymphoma Musculoskeltal Medical History: Reports: Arthritis - generalized Hematology: Denies: Anemia Past Surgical History Past Surgical History: Reports: Appendectomy, Tubal Ligation Social History Information Source: Patient, Relative Lives with: Group Home Smoking Status: Never Smoker Frequency of Alcohol Use: None Hx Recreational Drug Use: No Family History Family History: Reviewed & Not Pertinent Parental Family History Reviewed: No Children Family History Reviewed: NA Sibling(s) Family History Reviewed.: NA Medication/Allergy Home Medications: Losartan Potassium [Cozaar] 25 mg PO DAILY 12/27/17 Allergies/Adverse Reactions: lisinopril Allergy (Severe, Verified 12/23/16 09:33) cough Review of Systems All systems: reviewed and no additional remarkable complaints except as stated Physical Exam Vital Signs: Temp Pulse Resp BP Pulse Ox 98.4 F 10 L 147/97 H 99 12/27/17 12:57 12/27/17 14:01 12/27/17 14:01 12/27/17 14:01 Intake & Output 12/26/17 12/27/17 12/28/17 06:59 06:59 06:59 Weight 100 kg General appearance: PRESENT: no acute distress, cooperative, obese, other - resting in bed Head exam: PRESENT: normocephalic Eye exam: PRESENT: EOMI Mouth exam: PRESENT: moist Respiratory exam: PRESENT: clear to auscultation hattie - anteriorly, unlabored Cardiovascular exam: PRESENT: +S1, +S2, tachycardia GI/Abdominal exam: PRESENT: normal bowel sounds, soft, tenderness - Suprapubic bilaterally. ABSENT: guarding Rectal exam: PRESENT: deferred, other - Performed by ED physician Extremities exam: PRESENT: +1 edema Neurological exam: PRESENT: alert, awake, CN II-XII grossly intact, other - 3/5 lower extremity muscle strength, 5/5+ upper extremity Psychiatric exam: PRESENT: appropriate affect Skin exam: PRESENT: dry, intact Results Laboratory Results: 12/27/17 12:43 12/27/17 12:43 12/27/17 12/27/17 12:43 12:43 WBC 9.2 RBC 4.28 Hgb 13.2 Hct 38.6 MCV 90 MCH 30.9 MCHC 34.3 RDW 15.2 H Plt Count 291 Seg Neutrophils % 62.9 Lymphocytes % 26.1 Monocytes % 9.6 Eosinophils % 0.7 Basophils % 0.7 Absolute Neutrophils 5.8 Absolute Lymphocytes 2.4 Absolute Monocytes 0.9 Absolute Eosinophils 0.1 Absolute Basophils 0.1 Sodium 138.1 Potassium 4.1 Chloride 98 Carbon Dioxide 29 Anion Gap 11 BUN 29 H Creatinine 0.79 Est GFR ( Amer) > 60 Est GFR (Non-Af Amer) > 60 Glucose 158 H Calcium 9.2 Total Bilirubin 0.4 AST 101 H ALT 200 H Alkaline Phosphatase 477 H Total Protein 8.0 Albumin 3.3 L Lipase 181.6 Assessment & Plan - Diagnosis (1) Rectal bleeding Is this a current diagnosis for this admission?: Yes Plan: Lower GI/rectal bleeding: Differential include mucosal bleeding from constipation vs. hemorrhoids. Could be colonic source however blood is not melanotic. Pt has never had colonoscopy - Will obtain CT abdomen to better understand abdominal pain - Will work on improving constipation: ordered miralax and senna. If no BM by tomorrow, will try suppository vs enema - Ordered IV protonix daily - Repeat CBC at 6pm on 12/27. If stable, then can re-check labs in AM - Gen surg knows about patient and offerred to scope if emergently needed - Will consider consulting GI tomorrow/Friday based on clinical course (2) Elevated LFTs Is this a current diagnosis for this admission?: Yes Plan: Unclear etiology. This is new for patient compared to previous levels - Patient recently received IVIG which can cause elevation of LFTs, particularly ALT - Continue to trend (3) Guillain Camargo syndrome Is this a current diagnosis for this admission?: Yes Plan: Per patient, will try to obtain records from [facility] to better understand clinical and treatment course (4) Diabetes mellitus type 2 in obese Is this a current diagnosis for this admission?: Yes Plan: Will need to re-start home meds when reconciliation occurs. - Time Time Spent: 50 to 70 Minutes Critical Time spent with patient: Less than 15 minutes Anticipated discharge: Acute Rehab Within: within 72 hours - Inpatient Certification Medical Necessity: Failure to Improve With Outpatient Therapy, Need Close Monitoring Due to Risk of Patient Decompensation
--- NOTE | 2017-12-27 18:10 | RADIOLOGY REPORT (SQ) ---
EXAM DESCRIPTION: CT ABD/PELVIS WITH IV ONLY COMPLETED DATE/TIME: 12/27/2017 6:01 pm REASON FOR STUDY: Rectal bleeding and lower abdominal/pelvic pain COMPARISON: None. TECHNIQUE: CT scan of the abdomen and pelvis performed using helical scanning technique with dynamic intravenous contrast injection. No oral contrast. Images reviewed with lung, soft tissue, and bone windows. Reconstructed coronal and sagittal MPR images reviewed. Delayed images for evaluation of the urinary system also acquired. All images stored on PACS. All CT scanners at this facility use dose modulation, iterative reconstruction, and/or weight based d osing when appropriate to reduce radiation dose to as low as reasonably achievable (ALARA). [facility]: Dose Right [facility]: CareDose [facility]: Dose Right [facility]: Teradose 4D [facility]: Millenium [employer]ix CONTRAST TYPE AND DOSE: contrast/concentration: Isovue 370.00 mg/ml; Total Contrast Delivered: 100.0 ml; Total Saline Delivered: 72.1 ml RENAL FUNCTION: GFR > 60. RADIATION DOSE: . LIMITATIONS: None. FINDINGS: LOWER CHEST: No significant findings. No nodules or infiltrates. LIVER: Normal size. No masses. No dilated ducts. SPLEEN: Normal size. No focal lesions. PANCREAS: No masses. No significant calcifications. No adjacent inflammation or peripancreatic fluid collections. Pancreatic duct not dilated. GALLBLADDER: Dependent small stones or sludge. ADRENAL GLANDS: No significant masses or asymmetry. RIGHT KIDNEY AND URETER: No solid masses. No significant calcifications. No hydronephrosis or hyd roureter. LEFT KIDNEY AND URETER: No solid masses. No significant calcifications. No hydronephrosis or hydr oureter. AORTA AND VESSELS: No aneurysm. No dissection. Renal arteries, SMA, celiac without stenosis. RETROPERITONEUM: No retroperitoneal adenopathy, hemorrhage or masses. BOWEL AND PERITONEAL CAVITY: No masses or inflammatory changes. No free fluid or peritoneal masses. APPENDIX: Surgically absent. PELVIS: Distended bladder. ABDOMINAL WALL: No masses. No hernias. BONES: No significant or acute findings. OTHER: No other significant finding. IMPRESSION: Distended bladder. Dependent small stones or sludge in the gallbladder. TECHNICAL DOCUMENTATION: JOB ID: [id number] Quality ID # [id number]: Final reports with documentation of one or more dose reduction techniques (e.g., Au tomated exposure control, adjustment of the mA and/or kV according to patient size, use of iterative reconstruction technique) 2010 [employer]- All Rights Reserved Reading location - IP/workstation name: [email or web address]
[2017-12-27 18:42] LABS: HEMOGLOBIN 13.5 g/dL (12.0-15.5); MEAN CORPUSCULAR HEMOGLOBIN 30.7 pg (27.0-33.4); MEAN CORPUSCULAR HGB CONC 33.8 g/dL (32.0-36.0); MEAN CORPUSCULAR VOLUME 91 fl (80-97); PLATELET COUNT 259 10^3/uL (150-450); RED BLOOD COUNT 4.39 10^6/uL (3.72-5.28); RED CELL DISTRIBUTION WIDTH 15.4 % (11.5-14.0); WHITE BLOOD COUNT 8.2 10^3/uL (4.0-10.5)
[2017-12-27] MEDS: SENNOSIDES/DOCUSATE 8.6-50 MG 1 EACH TABLET PO SCH (19:15)
[2017-12-27] MEDS ORDERED: GLUCAGON,HUMAN RECOMB 1 MG INJ IM PRN (21:45)
[2017-12-27] MEDS ORDERED: DEXTROSE 50%-WATER SYRINGE 25 GM/50 ML DOSE IV PRN (21:45)
[2017-12-27] MEDS ORDERED: DEXTROSE 40% GEL 15 GM TUBE PO PRN (21:45)
[2017-12-27] MEDS ORDERED: DEXTROSE 50%-WATER SYRINGE 12.5 GM/25 ML DOSE IV PRN (21:45)
[2017-12-27] MEDS ORDERED: DEXTROSE 40% GEL 15 GM TUBE X 2 PO PRN (21:45)
[2017-12-27] MEDS ORDERED: INSULIN GLARGINE,HUM.REC.ANLOG 1,000 UNIT/10 ML UNIT SUBCUT ONE (22:21)
[2017-12-27] MEDS: TRAZODONE HCL 50 MG TABLET PO PRN (22:24)
[2017-12-27] MEDS: HYDROCODONE/ACETAMINOPHEN 5-325 MG TABLET PO PRN (22:24)
[2017-12-27] MEDS: INSULIN LISPRO 100 UNIT/ML 3 ML VIAL SUBCUT PRN (22:25)
[2017-12-27] MEDS: INSULIN GLARGINE,HUM.REC.ANLOG 300 UNIT/3 ML INSULN.PEN SUBCUT SCH (22:27)
[2017-12-28] MEDS: HYDROCODONE/ACETAMINOPHEN 5-325 MG TABLET PO PRN ×4 (04:21→22:05)
[2017-12-28 04:42] LABS: HEMATOCRIT 41.6 % (36.0-47.0); HEMOGLOBIN 13.8 g/dL (12.0-15.5); MEAN CORPUSCULAR HEMOGLOBIN 30.3 pg (27.0-33.4); MEAN CORPUSCULAR HGB CONC 33.3 g/dL (32.0-36.0); MEAN CORPUSCULAR VOLUME 91 fl (80-97); PLATELET COUNT 234 10^3/uL (150-450); RED BLOOD COUNT 4.57 10^6/uL (3.72-5.28); RED CELL DISTRIBUTION WIDTH 15.3 % (11.5-14.0); WHITE BLOOD COUNT 8.1 10^3/uL (4.0-10.5)
[2017-12-28 07:03] LABS: ALANINE AMINOTRANSFERASE 147 U/L (9-52); ALKALINE PHOSPHATASE 386 U/L (38-126); ANION GAP 10 (5-19); ASPARTATE AMINO TRANSFERASE 53 U/L (14-36); BILIRUBIN,DIRECT 0.3 mg/dL (0.0-0.4); BILIRUBIN,TOTAL 0.3 mg/dL (0.2-1.3); BLOOD UREA NITROGEN 25 mg/dL (7-20); CALCIUM 9.1 mg/dL (8.4-10.2); CARBON DIOXIDE 29 mmol/L (22-30); CHLORIDE 102 mmol/L (98-107); GLUCOSE 165 mg/dL (75-110); POTASSIUM 4.1 mmol/L (3.6-5.0); SODIUM 140.5 mmol/L (137-145)
[2017-12-28] MEDS ORDERED: MORPHINE SULFATE 10 MG/ML INJ IV ONE (09:00)
[2017-12-28] MEDS: LOSARTAN POTASSIUM 25 MG TABLET PO SCH (09:09)
[2017-12-28] MEDS: ASPIRIN 81 MG TABLET, ENT COATED PO SCH (09:10)
[2017-12-28] MEDS: PAROXETINE HCL 20 MG TABLET PO SCH (09:10)
[2017-12-28] MEDS: ENOXAPARIN SODIUM INJ 40 MG/0.4 ML DISP.SYRIN SUBCUT SCH (09:10)
[2017-12-28] MEDS: INSULIN LISPRO 100 UNIT/ML 3 ML VIAL SUBCUT PRN ×4 (09:17→22:16)
--- NOTE | 2017-12-28 11:57 | PDOC PROGRESS REPORT ---
Subjective Progress Note for:: 12/28/17 Subjective:: Doing better. No more rectal bleeding since admission. H&H has been stable. Small BM last night. Abdominal pain improved on exam. major complaint in hip pain. Denies fevers, chills, CP, SOB. Reason For Visit: LOWER GI BLEED Physical Exam Vital Signs: Temp Pulse Resp BP Pulse Ox 98.4 F 102 H 18 122/73 100 12/28/17 07:26 12/28/17 07:26 12/28/17 07:26 12/28/17 07:26 12/28/17 07:26 Intake & Output 12/27/17 12/28/17 12/29/17 06:59 06:59 06:59 Intake Total 700 Output Total 2300 Balance -1600 Weight 96.3 kg General appearance: PRESENT: no acute distress, obese Mouth exam: PRESENT: moist Cardiovascular exam: PRESENT: +S1, +S2. ABSENT: tachycardia GI/Abdominal exam: PRESENT: soft. ABSENT: tenderness - Suprpubic pain resolved Neurological exam: PRESENT: alert, awake, CN II-XII grossly intact, other - Lower extremity muscle strength remains 3/5 Psychiatric exam: PRESENT: appropriate affect Results Laboratory Results: 12/28/17 04:04 12/28/17 06:08 12/27/17 12/28/17 12/28/17 18:34 04:04 04:04 WBC 8.2 8.1 RBC 4.39 4.57 Hgb 13.5 13.8 Hct 40.0 41.6 MCV 91 91 MCH 30.7 30.3 MCHC 33.8 33.3 RDW 15.4 H 15.3 H Plt Count 259 234 Sodium Cancelled Potassium Cancelled Chloride Cancelled Carbon Dioxide Cancelled Anion Gap Cancelled BUN Cancelled Creatinine Cancelled Est GFR ( Amer) Cancelled Est GFR (Non-Af Amer) Cancelled Glucose Cancelled Calcium Cancelled Total Bilirubin Cancelled AST Cancelled ALT Cancelled Alkaline Phosphatase Cancelled Total Protein Cancelled Albumin Cancelled 12/28/17 06:08 WBC RBC Hgb Hct MCV MCH MCHC RDW Plt Count Sodium 140.5 Potassium 4.1 Chloride 102 Carbon Dioxide 29 Anion Gap 10 BUN 25 H Creatinine 0.87 Est GFR ( Amer) > 60 Est GFR (Non-Af Amer) > 60 Glucose 165 H Calcium 9.1 Total Bilirubin 0.3 AST 53 H ALT 147 H Alkaline Phosphatase 386 H Total Protein 7.0 Albumin 3.0 L Impressions: Abdomen/Pelvis CT 12/27/17 17:01 IMPRESSION: Distended bladder. Dependent small stones or sludge in the gallbladder. Assessment & Plan - Diagnosis (1) Constipation Qualifiers: Constipation type: unspecified constipation type Qualified Code(s): K59.00 - Constipation, unspecified Is this a current diagnosis for this admission?: Yes Plan: Appears to be a chronic issue and on problem list for multiple hospitaliziations - Has miralax and senna ordered - Will order Dulcolex suppository today - IF no improvement, would order enema (2) Rectal bleeding Is this a current diagnosis for this admission?: Yes Plan: Lower GI/rectal bleeding. resolved: Differential include mucosal bleeding from constipation vs. hemorrhoids. Could be colonic source however blood is not melanotic. Pt has never had colonoscopy - CT abdomen without obvious source. Will change to PO protonix. H&H has been stable. NO GI consult at this time. (3) Elevated LFTs Is this a current diagnosis for this admission?: Yes Plan: Unclear etiology. This is new for patient compared to previous levels, now downtrending as of /6 - Patient recently received IVIG which can cause elevation of LFTs, particularly ALT - Continue to trend (4) Guillain Camargo syndrome Is this a current diagnosis for this admission?: Yes Plan: Per patient, will try to obtain records from [facility] to better understand clinical and treatment course - COnsult PT for evaluation (5) Diabetes mellitus type 2 in obese Is this a current diagnosis for this admission?: Yes - Time Time Spent with patient: 15-24 minutes Anticipated discharge: Acute Rehab Within: within 48 hours
[2017-12-28] MEDS: BISACODYL 10 MG SUPP.RECT PR SCH (13:34)
[2017-12-28] MEDS ORDERED: INSULIN LISPRO 100 UNIT/ML 3 ML VIAL SUBCUT SCH (16:00)
[2017-12-28] MEDS ORDERED: INSULIN LISPRO SQ SCH (16:00)
[2017-12-28] MEDS: SENNOSIDES/DOCUSATE 8.6-50 MG 1 EACH TABLET PO SCH (18:27)
[2017-12-28] MEDS: POLYETHYLENE GLYCOL 3350 POWDER 17 GM/1 PACKET PO SCH (18:28)
[2017-12-28] MEDS: PANTOPRAZOLE SODIUM 40 MG VIAL IV SCH (18:28)
[2017-12-28] MEDS: TRAZODONE HCL 50 MG TABLET PO PRN (22:16)
[2017-12-28] MEDS: INSULIN GLARGINE,HUM.REC.ANLOG 300 UNIT/3 ML INSULN.PEN SUBCUT SCH (22:16)
[2017-12-29] MEDS: HYDROCODONE/ACETAMINOPHEN 5-325 MG TABLET PO PRN ×4 (04:08→21:48)
[2017-12-29] MEDS: LOSARTAN POTASSIUM 25 MG TABLET PO SCH (09:23)
[2017-12-29] MEDS: PAROXETINE HCL 20 MG TABLET PO SCH (09:23)
[2017-12-29] MEDS: ASPIRIN 81 MG TABLET, ENT COATED PO SCH (09:24)
[2017-12-29] MEDS: ENOXAPARIN SODIUM INJ 40 MG/0.4 ML DISP.SYRIN SUBCUT SCH (09:24)
[2017-12-29] MEDS: INSULIN LISPRO 100 UNIT/ML 3 ML VIAL SUBCUT PRN ×4 (09:29→21:48)
--- NOTE | 2017-12-29 09:33 | PDOC PROGRESS REPORT ---
Subjective Progress Note for:: 12/29/17 Subjective:: Patient is seen resting in bed. Denies any chest pain, shortness of breath or dyspnea. She denies any nausea, vomiting or abdominal pain. She has had no further rectal bleeding. She has only had small BMs since admission. Nursing report significant hemorrhoids. She planes of pain in the right hip. She denies any other symptoms. Remaining review of systems are negative. Reason For Visit: LOWER GI BLEED Physical Exam Vital Signs: Temp Pulse Resp BP Pulse Ox 98.4 F 86 16 134/89 H 97 12/29/17 08:06 12/29/17 08:06 12/29/17 08:06 12/29/17 08:06 12/29/17 08:06 Intake & Output 12/28/17 12/29/17 12/30/17 06:59 06:59 06:59 Intake Total 700 1456 Output Total 2300 2375 Balance -1600 -919 Weight 96.3 kg 100.5 kg General appearance: PRESENT: no acute distress, obese, well-developed, well- nourished Head exam: PRESENT: atraumatic, normocephalic Eye exam: PRESENT: conjunctiva pink, EOMI, PERRLA. ABSENT: scleral icterus Ear exam: PRESENT: normal external ear exam Mouth exam: PRESENT: moist, tongue midline Neck exam: ABSENT: carotid bruit, JVD, lymphadenopathy, thyromegaly Respiratory exam: PRESENT: clear to auscultation hattie. ABSENT: rales, rhonchi, wheezes Cardiovascular exam: PRESENT: RRR. ABSENT: diastolic murmur, rubs, systolic murmur Pulses: PRESENT: normal carotid pulses Vascular exam: PRESENT: normal capillary refill GI/Abdominal exam: PRESENT: normal bowel sounds, soft. ABSENT: distended, guarding, mass, organolmegaly, rebound, tenderness Rectal exam: PRESENT: deferred Extremities exam: PRESENT: full ROM. ABSENT: calf tenderness, clubbing, pedal edema Musculoskeletal exam: PRESENT: ambulatory, full ROM, normal inspection, tenderness Neurological exam: PRESENT: alert, altered, awake, oriented to person, CN II- XII grossly intact Psychiatric exam: PRESENT: flat affect, normal mood. ABSENT: homicidal ideation , suicidal ideation Skin exam: PRESENT: dry, intact, warm. ABSENT: cyanosis, rash Results Laboratory Results: 12/28/17 04:04 12/28/17 06:08 Impressions: Abdomen/Pelvis CT 12/27/17 17:01 IMPRESSION: Distended bladder. Dependent small stones or sludge in the gallbladder. Assessment & Plan - Diagnosis (1) Rectal bleeding Is this a current diagnosis for this admission?: Yes Plan: Start Anusol suppositories. Hemoglobin is 13.8 which is increasing today. (2) Constipation Qualifiers: Constipation type: unspecified constipation type Qualified Code(s): K59.00 - Constipation, unspecified Is this a current diagnosis for this admission?: Yes Plan: Continue to collect suppository daily. Senna plus twice daily and MiraLAX. We will add enema if no significant results today. (3) Depression Qualifiers: Depression Type: major depressive disorder Is this a current diagnosis for this admission?: Yes Plan: Continue home medications (4) Diabetes mellitus type 2 in obese Is this a current diagnosis for this admission?: Yes Plan: Continue current medications (5) Hypertension Qualifiers: Hypertension type: essential hypertension Qualified Code(s): I10 - Essential (primary) hypertension Is this a current diagnosis for this admission?: Yes Plan: Continue current medications (6) Osteoarthritis Qualifiers: Osteoarthritis location: unspecified site Is this a current diagnosis for this admission?: Yes Plan: Add motrin prn - Time Time Spent with patient: 25-34 minutes Medications reviewed and adjusted accordingly: Yes Anticipated discharge: Acute Rehab Within: within 24 hours
[2017-12-29] MEDS: HYDROCORTISONE ACETATE 25 MG SUPP.RECT PR PRN (12:05)
[2017-12-29] MEDS: IBUPROFEN 600 MG TABLET PO PRN ×2 (12:56→19:38)
[2017-12-29] MEDS: INSULIN LISPRO 100 UNIT/ML 3 ML VIAL SUBCUT SCH ×2 (13:41→17:50)
[2017-12-29] MEDS: BISACODYL 10 MG SUPP.RECT PR SCH (14:45)
[2017-12-29] MEDS: POLYETHYLENE GLYCOL 3350 POWDER 17 GM/1 PACKET PO SCH (17:49)
[2017-12-29] MEDS: PANTOPRAZOLE SODIUM 40 MG VIAL IV SCH (17:49)
[2017-12-29] MEDS: SENNOSIDES/DOCUSATE 8.6-50 MG 1 EACH TABLET PO SCH (17:49)
[2017-12-29] MEDS: TRAZODONE HCL 50 MG TABLET PO PRN (21:47)
[2017-12-29] MEDS: INSULIN GLARGINE,HUM.REC.ANLOG 300 UNIT/3 ML INSULN.PEN SUBCUT SCH (21:48)
[2017-12-30] MEDS: IBUPROFEN 600 MG TABLET PO PRN ×3 (01:42→19:47)
[2017-12-30] MEDS: HYDROCODONE/ACETAMINOPHEN 5-325 MG TABLET PO PRN ×3 (04:08→21:45)
[2017-12-30] MEDS ORDERED: NA PHOS,M-B/NA PHOS,DI-BA (ADULT) 133 ML ENEMA PR ONE (08:23)
[2017-12-30] MEDS: INSULIN LISPRO 100 UNIT/ML 3 ML VIAL SUBCUT PRN ×4 (08:47→21:46)
[2017-12-30] MEDS: INSULIN LISPRO 100 UNIT/ML 3 ML VIAL SUBCUT SCH ×3 (08:47→18:40)
[2017-12-30] MEDS: LEVOFLOXACIN 500 MG TABLET PO SCH (10:16)
[2017-12-30] MEDS: ENOXAPARIN SODIUM INJ 40 MG/0.4 ML DISP.SYRIN SUBCUT SCH (10:16)
[2017-12-30] MEDS: PAROXETINE HCL 20 MG TABLET PO SCH (10:17)
[2017-12-30] MEDS: LOSARTAN POTASSIUM 25 MG TABLET PO SCH (10:17)
[2017-12-30] MEDS: ASPIRIN 81 MG TABLET, ENT COATED PO SCH (10:17)
--- NOTE | 2017-12-30 12:39 | PDOC PROGRESS REPORT ---
Subjective Progress Note for:: 12/30/17 Subjective:: Patient is seen resting in bed. Denies any chest pain, shortness of breath or dyspnea. She denies any nausea, vomiting or abdominal pain. She has had no further rectal bleeding. She has only had small BMs since admission. Nursing report significant hemorrhoids. She complains of pain in the right hip. She denies any other symptoms. Remaining review of systems are negative. Reason For Visit: LOWER GI BLEED Physical Exam Vital Signs: Temp Pulse Resp BP Pulse Ox 97.9 F 95 20 153/86 H 98 12/30/17 11:57 12/30/17 11:57 12/30/17 11:57 12/30/17 11:57 12/30/17 11:57 Intake & Output 12/29/17 12/30/17 12/31/17 06:59 06:59 06:59 Intake Total 1456 1099 Output Total 2375 2275 Balance -919 -1176 Weight 100.5 kg 98.9 kg General appearance: PRESENT: no acute distress, obese, well-developed, well- nourished Head exam: PRESENT: atraumatic, normocephalic Eye exam: PRESENT: conjunctiva pink, EOMI, PERRLA. ABSENT: scleral icterus Ear exam: PRESENT: normal external ear exam Mouth exam: PRESENT: moist, tongue midline Neck exam: PRESENT: full ROM Respiratory exam: PRESENT: clear to auscultation hattie. ABSENT: rales, rhonchi, wheezes Cardiovascular exam: PRESENT: RRR. ABSENT: diastolic murmur, rubs, systolic murmur Pulses: PRESENT: normal dorsalis pedis pul Vascular exam: PRESENT: normal capillary refill Rectal exam: PRESENT: deferred Extremities exam: PRESENT: full ROM. ABSENT: calf tenderness, clubbing, pedal edema Musculoskeletal exam: PRESENT: ambulatory, full ROM Neurological exam: PRESENT: alert, altered, oriented to person, CN II-XII grossly intact Psychiatric exam: PRESENT: appropriate affect, normal mood. ABSENT: homicidal ideation, suicidal ideation Skin exam: PRESENT: other - left great toe ulceration with wet to dry dressing, no erythema or drainage Results Laboratory Results: 12/28/17 04:04 12/28/17 06:08 Impressions: Abdomen/Pelvis CT 12/27/17 17:01 IMPRESSION: Distended bladder. Dependent small stones or sludge in the gallbladder. Assessment & Plan - Diagnosis (1) Rectal bleeding Is this a current diagnosis for this admission?: Yes Plan: Start Anusol suppositories. Hemoglobin is 13.8 which is increasing today. (2) Constipation Qualifiers: Constipation type: unspecified constipation type Qualified Code(s): K59.00 - Constipation, unspecified Is this a current diagnosis for this admission?: Yes Plan: Continue to collect suppository daily. Senna plus twice daily and MiraLAX. She was given a fleets enema today and found to have a large impaction. She was disimpacted and given a soap suds enema with large results (3) Depression Qualifiers: Depression Type: major depressive disorder Is this a current diagnosis for this admission?: Yes Plan: Continue home medications (4) Diabetes mellitus type 2 in obese Is this a current diagnosis for this admission?: Yes Plan: Continue current medications (5) Hypertension Qualifiers: Hypertension type: essential hypertension Qualified Code(s): I10 - Essential (primary) hypertension Is this a current diagnosis for this admission?: Yes Plan: Continue current medications (6) Osteoarthritis Qualifiers: Osteoarthritis location: unspecified site Is this a current diagnosis for this admission?: Yes Plan: Add motrin prn - Time Time Spent with patient: 25-34 minutes Total Critical Time (Minutes): 15 Anticipated discharge: SNF Within: when bed available
[2017-12-30] MEDS: BISACODYL 10 MG SUPP.RECT PR SCH (12:57)
[2017-12-30] MEDS: SENNOSIDES/DOCUSATE 8.6-50 MG 1 EACH TABLET PO SCH (18:09)
[2017-12-30] MEDS: POLYETHYLENE GLYCOL 3350 POWDER 17 GM/1 PACKET PO SCH (18:09)
[2017-12-30] MEDS: PANTOPRAZOLE SODIUM 40 MG VIAL IV SCH (18:09)
[2017-12-30] MEDS: TRAZODONE HCL 50 MG TABLET PO PRN (21:44)
[2017-12-30] MEDS: HYDROCORTISONE ACETATE 25 MG SUPP.RECT PR PRN (21:45)
[2017-12-30] MEDS: INSULIN GLARGINE,HUM.REC.ANLOG 300 UNIT/3 ML INSULN.PEN SUBCUT SCH (21:45)
[2017-12-31] MEDS: IBUPROFEN 600 MG TABLET PO PRN ×3 (02:41→16:18)
[2017-12-31] MEDS: HYDROCODONE/ACETAMINOPHEN 5-325 MG TABLET PO PRN ×3 (04:48→22:44)
[2017-12-31 04:53] LABS: ABSOLUTE EOSINOPHILS # (AUTO) 0.1 10^3/uL (0.0-0.6); ABSOLUTE LYMPHOCYTES (AUTO) 2.2 10^3/uL (0.5-4.7); ABSOLUTE MONOCYTES (AUTO) 0.5 10^3/uL (0.1-1.4); ABSOLUTE NEUT (AUTO) 2.6 10^3/uL (1.7-8.2); BASOPHILS % (AUTO) 0.8 % (0-2); EOSINOPHILS % (AUTO) 2.1 % (0-6); HEMATOCRIT 39.8 % (36.0-47.0); HEMOGLOBIN 13.3 g/dL (12.0-15.5); LYMPHOCYTES % (AUTO) 40.4 % (13-45); MEAN CORPUSCULAR HEMOGLOBIN 30.5 pg (27.0-33.4); MEAN CORPUSCULAR HGB CONC 33.3 g/dL (32.0-36.0); MEAN CORPUSCULAR VOLUME 92 fl (80-97); MONOCYTES % (AUTO) 9.8 % (3-13); PLATELET COUNT 253 10^3/uL (150-450); RED BLOOD COUNT 4.35 10^6/uL (3.72-5.28); RED CELL DISTRIBUTION WIDTH 15.2 % (11.5-14.0); SEGMENTED NEUTROPHILS % (AUTO) 46.9 % (42-78); TOTAL CELLS COUNTED % (AUTO) 100 %; WHITE BLOOD COUNT 5.5 10^3/uL (4.0-10.5)
[2017-12-31 05:13] LABS: ANION GAP 10 (5-19); BLOOD UREA NITROGEN 18 mg/dL (7-20); CALCIUM 9.9 mg/dL (8.4-10.2); CARBON DIOXIDE 29 mmol/L (22-30); CHLORIDE 101 mmol/L (98-107); GLUCOSE 216 mg/dL (75-110); SODIUM 139.6 mmol/L (137-145)
[2017-12-31] MEDS: INSULIN LISPRO 100 UNIT/ML 3 ML VIAL SUBCUT PRN ×4 (08:05→22:45)
[2017-12-31] MEDS: INSULIN LISPRO 100 UNIT/ML 3 ML VIAL SUBCUT SCH ×3 (08:05→17:03)
[2017-12-31] MEDS: ASPIRIN 81 MG TABLET, ENT COATED PO SCH (09:03)
[2017-12-31] MEDS: LOSARTAN POTASSIUM 25 MG TABLET PO SCH (09:03)
[2017-12-31] MEDS: ENOXAPARIN SODIUM INJ 40 MG/0.4 ML DISP.SYRIN SUBCUT SCH (09:03)
[2017-12-31] MEDS: PAROXETINE HCL 20 MG TABLET PO SCH (09:03)
[2017-12-31] MEDS: LEVOFLOXACIN 500 MG TABLET PO SCH (09:03)
[2017-12-31] MEDS ORDERED: LUBIPROSTONE 24 MCG CAPSULE PO ONE (10:45)
--- NOTE | 2017-12-31 11:48 | PDOC PROGRESS REPORT ---
Subjective Progress Note for:: 12/31/17 Subjective:: Continues to complain of left "hip" pain. Has been manually disimpacted overnight. States she is completely debilitated and unable to move her arms and legs. Reason For Visit: LOWER GI BLEED Physical Exam Vital Signs: Temp Pulse Resp BP Pulse Ox 97.4 F 92 14 162/91 H 97 12/31/17 08:20 12/31/17 08:20 12/31/17 08:20 12/31/17 08:20 12/31/17 08:20 Intake & Output 12/30/17 12/31/17 01/01/18 05:59 05:59 05:59 Intake Total 1224 2122 325 Output Total 2871 4570 750 Balance -3471 -528 -425 Weight 218 lb 0.595 oz 216 lb 14.958 oz General appearance: PRESENT: no acute distress, obese Respiratory exam: PRESENT: clear to auscultation hattie Cardiovascular exam: PRESENT: RRR GI/Abdominal exam: PRESENT: soft Extremities exam: PRESENT: other - Hip pain is more in the middle of her left butt on palpation. Muscle is very tight and tender just below the iliac crest. No edema Musculoskeletal exam: PRESENT: other - Significant muscle wasting upper and lower extremities Neurological exam: PRESENT: alert, CN II-XII grossly intact Psychiatric exam: PRESENT: flat affect Skin exam: PRESENT: warm, other - Bronzing of her left leg between the knee and ankle Results Laboratory Results: 12/31/17 04:29 12/31/17 04:29 12/31/17 12/31/17 04:29 04:29 WBC 5.5 RBC 4.35 Hgb 13.3 Hct 39.8 MCV 92 MCH 30.5 MCHC 33.3 RDW 15.2 H Plt Count 253 Seg Neutrophils % 46.9 Lymphocytes % 40.4 Monocytes % 9.8 Eosinophils % 2.1 Basophils % 0.8 Absolute Neutrophils 2.6 Absolute Lymphocytes 2.2 Absolute Monocytes 0.5 Absolute Eosinophils 0.1 Absolute Basophils 0.0 Sodium 139.6 Potassium 5.0 Chloride 101 Carbon Dioxide 29 Anion Gap 10 BUN 18 Creatinine 0.83 Est GFR ( Amer) > 60 Est GFR (Non-Af Amer) > 60 Glucose 216 H Calcium 9.9 12/28/17 00:30 Toe - Diabetic Ulcer Gram Stain - Final 12/28/17 00:30 Toe - Diabetic Ulcer Wound Culture - Final Serratia Marcescens Enterococcus Faecalis(Group D) Impressions: Abdomen/Pelvis CT 12/27/17 17:01 IMPRESSION: Distended bladder. Dependent small stones or sludge in the gallbladder. Assessment & Plan - Diagnosis (1) CIDP (chronic inflammatory demyelinating polyneuropathy) Is this a current diagnosis for this admission?: Yes Plan: Still trying to get records from recent hospitalization at [facility]. Very debilitated. I will have physical and occupational therapy start working with her. (2) Left hip pain Is this a current diagnosis for this admission?: Yes Plan: Seems to be more related to muscle spasm than her actual hip. I will check a hip x-ray to be safe. Valium and pain medication as needed. (3) Chronic pain associated with significant psychosocial dysfunction Is this a current diagnosis for this admission?: Yes (4) Constipation Qualifiers: Constipation type: unspecified constipation type Qualified Code(s): K59.00 - Constipation, unspecified Is this a current diagnosis for this admission?: Yes Plan: Probably due to chronic narcotics. Increase her MiraLAX and add Amitiza. (5) Rectal bleeding Is this a current diagnosis for this admission?: Yes (6) Diabetes mellitus type 2 in obese Is this a current diagnosis for this admission?: Yes (7) Hypertension Qualifiers: Hypertension type: essential hypertension Qualified Code(s): I10 - Essential (primary) hypertension Is this a current diagnosis for this admission?: Yes Plan: I will add a beta-damaris.
[2017-12-31] MEDS: BISACODYL 10 MG SUPP.RECT PR SCH (12:39)
--- NOTE | 2017-12-31 15:19 | RADIOLOGY REPORT (SQ) ---
EXAM DESCRIPTION: HIP LEFT AP/LATERAL COMPLETED DATE/TIME: 12/31/2017 1:08 pm REASON FOR STUDY: left hip pain COMPARISON: None. NUMBER OF VIEWS: Two views. TECHNIQUE: AP pelvis and additional frog-leg view of the left hip. LIMITATIONS: None. FINDINGS: MINERALIZATION: Normal. LEFT HIP: No fracture or dislocation. No worrisome bone lesions. RIGHT HIP: No fracture or dislocation. No worrisome bone lesions. PUBIS AND ISCHIUM: No fracture. PELVIS: No fracture. SACRUM: No fracture or dislocation. No worrisome bone lesions. LOWER LUMBAR SPINE: No fracture or dislocation. No worrisome bone lesions. No significant disc disea se. SOFT TISSUES: No findings. OTHER: No other significant finding. IMPRESSION: NEGATIVE STUDY OF THE LEFT HIP AND PELVIS. NO RADIOGRAPHIC EVIDENCE OF ACUTE INJURY. TECHNICAL DOCUMENTATION: JOB ID: [id number] [employer]- All Rights Reserved Reading location - IP/workstation name: [email or web address]
[2017-12-31] MEDS ORDERED: ACETAMINOPHEN 325 MG TABLET PO PRN (15:30)
[2017-12-31] MEDS ORDERED: FENTANYL 12 MCG/HR PATCH.TD72 TD SCH (16:00)
[2017-12-31] MEDS: SENNOSIDES/DOCUSATE 8.6-50 MG 1 EACH TABLET PO SCH (17:02)
[2017-12-31] MEDS: METOPROLOL TARTRATE 25 MG TABLET PO SCH (17:02)
[2017-12-31] MEDS: LUBIPROSTONE 24 MCG CAPSULE PO SCH (17:03)
[2017-12-31] MEDS: PANTOPRAZOLE SODIUM 40 MG VIAL IV SCH (17:03)
[2017-12-31] MEDS: TRAZODONE HCL 50 MG TABLET PO PRN (22:44)
[2017-12-31] MEDS: POLYETHYLENE GLYCOL 3350 POWDER 17 GM/1 PACKET PO SCH (22:44)
[2017-12-31] MEDS: INSULIN GLARGINE,HUM.REC.ANLOG 300 UNIT/3 ML INSULN.PEN SUBCUT SCH (22:44)
[2018-01-01] MEDS: METOPROLOL TARTRATE 25 MG TABLET PO SCH ×2 (05:09→17:30)
[2018-01-01 05:51] LABS: ALANINE AMINOTRANSFERASE 59 U/L (9-52); ALBUMIN 3.5 g/dL (3.5-5.0); ALKALINE PHOSPHATASE 212 U/L (38-126); ANION GAP 11 (5-19); ASPARTATE AMINO TRANSFERASE 32 U/L (14-36); BILIRUBIN,DIRECT 0.2 mg/dL (0.0-0.4); BILIRUBIN,TOTAL 0.2 mg/dL (0.2-1.3); BLOOD UREA NITROGEN 19 mg/dL (7-20); CALCIUM 9.7 mg/dL (8.4-10.2); CARBON DIOXIDE 29 mmol/L (22-30); CHLORIDE 100 mmol/L (98-107); CREATINE KINASE 25 U/L (30-135); GLUCOSE 192 mg/dL (75-110); PHOSPHORUS 3.6 mg/dL (2.5-4.5); POTASSIUM 4.3 mmol/L (3.6-5.0); SODIUM 139.5 mmol/L (137-145); TOTAL PROTEIN 7.6 g/dL (6.3-8.2)
[2018-01-01] MEDS: INSULIN LISPRO 100 UNIT/ML 3 ML VIAL SUBCUT PRN ×2 (07:45→11:43)
[2018-01-01] MEDS: INSULIN LISPRO 100 UNIT/ML 3 ML VIAL SUBCUT SCH ×3 (07:45→16:36)
[2018-01-01] MEDS: LEVOFLOXACIN 500 MG TABLET PO SCH (09:41)
[2018-01-01] MEDS: LUBIPROSTONE 24 MCG CAPSULE PO SCH ×2 (09:41→17:30)
[2018-01-01] MEDS: PAROXETINE HCL 20 MG TABLET PO SCH (09:41)
[2018-01-01] MEDS: ENOXAPARIN SODIUM INJ 40 MG/0.4 ML DISP.SYRIN SUBCUT SCH (09:42)
[2018-01-01] MEDS: ASPIRIN 81 MG TABLET, ENT COATED PO SCH (09:42)
[2018-01-01] MEDS: LOSARTAN POTASSIUM 25 MG TABLET PO SCH (09:42)
[2018-01-01] MEDS: POLYETHYLENE GLYCOL 3350 POWDER 17 GM/1 PACKET PO SCH ×2 (09:44→22:30)
--- NOTE | 2018-01-01 12:32 | PDOC DISCHARGE SUMMARY ---
General - Admit/Disc Date/PCP Admission Date/Primary Care Provider: 12/27/17 17:28 CRYSTAL MCCURDY Discharge Date: 01/01/18 - Discharge Diagnosis (1) CIDP (chronic inflammatory demyelinating polyneuropathy) Is this a current diagnosis for this admission?: Yes Summary: Recent prolonged hospitalization in [place] has left her very debilitated. She needs considerable rehab, but has little motivation. (2) Left hip pain Is this a current diagnosis for this admission?: Yes Summary: X-ray of her hip was negative for acute injury. Exam was more consistent with muscular spasm in her left buttock. Treated symptomatically. (3) Chronic pain associated with significant psychosocial dysfunction Is this a current diagnosis for this admission?: Yes (4) Constipation Is this a current diagnosis for this admission?: Yes Summary: Very resistant to disimpaction. Will need ongoing aggressive bowel management. (5) Rectal bleeding Is this a current diagnosis for this admission?: Yes Summary: Hemorrhoidal. Resolved. Anusol suppositories were started to good effect. (6) Diabetes mellitus type 2 in obese Is this a current diagnosis for this admission?: Yes Summary: Controlled. Home medications were continued. (7) Hypertension Is this a current diagnosis for this admission?: Yes Summary: Medications were adjusted this admission. - Additional Information Discharge Diet: Diabetic Discharge Activity: Activity As Tolerated Prescriptions: Fentanyl [Duragesic 12 Mcg/Hr Transdermal Patch] 1 each TD Q3D@1600 #10 patch.td72 Hydrocortisone Acetate [Anusol Hc 25 mg Supp.rect] 25 mg OR BIDP PRN #30 supp.rect PRN Reason: Lubiprostone [Amitiza 24 Mcg Capsule] 24 mcg PO BID #30 capsule Metoprolol Tartrate [Lopressor 25 mg Tablet] 25 mg PO Q12A #60 tablet Home Medications: Ergocalciferol (Vitamin D2) [Vitamin D2] 50,000 unit PO TH@1000 12/27/17 Hydrocodone/Acetaminophen [[place] 5-325 mg Tablet] 1 tab PO Q12HP PRN 12/27/17 Insulin Glargine,Hum.rec.anlog [Lantus Insulin 100 Unit/mL] 33 unit SUBCUT QHS 12/27/17 Insulin Lispro [Humalog] 17 unit SQ AC 12/27/17 Losartan Potassium [Cozaar] 25 mg PO DAILY 12/27/17 Paroxetine HCl [Paxil] 40 mg PO DAILY 12/27/17 Trazodone HCl 150 mg PO HSP PRN 12/27/17 Aspirin [Aspirin 81 mg Chewable Tablet] 81 mg PO DAILY 12/28/17 Fentanyl [Duragesic 12 Mcg/Hr Transdermal Patch] 1 each TD Q3D@1600 #10 patch.td72 01/01/18 Hydrocortisone Acetate [Anusol Hc 25 mg Supp.rect] 25 mg OR BIDP PRN #30 supp.rect 01/01/18 Ibuprofen [Motrin 600 mg Tablet] 600 mg PO Q6HP PRN tablet 01/01/18 Lubiprostone [Amitiza 24 Mcg Capsule] 24 mcg PO BID #30 capsule 01/01/18 Metoprolol Tartrate [Lopressor 25 mg Tablet] 25 mg PO Q12A #60 tablet 01/01/18 Polyethylene Glycol 3350 [Miralax Powder 17 gm/Packet] 17 gm PO Q12 powd.pack 01/01/18 Sennosides/Docusate 8.6-50 mg [Senna Plus Tablet] 2 each PO QPM #0 tablet History of Present Illness Patient complains of: Rectal bleeding and abdominal pain History of Present Illness: WALT ANDERSEN is a 62 year old female with history significant for diabetes, peripheral neuropathy, hypertension, and obesity. Patient has had multiple hospitalizations over the past month at both [facility] and more recently at [facility]. Between hospitalizations, she has been a resident of [facility]. At [facility] patient was admitted for bacteremia. 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 I do not have the records. However per her and patient (both who are poor historians), appears that she was treated with IVIG * 4. Patient is unsure if she improved following treatment. She was discharged back to [facility] from [facility] (unclear discharge date). Over the last 24 hours, she has developed suprapubic abdominal tenderness. She was also noted to have bright red blood in her rectal vault. Due to this, she was prompted to come to the ED for evaluation. Currently, she denies fevers, chills, CP, SOB, abdominal pain, NV. She states that she has NOT had a bowel movement in over 2 week. She usually has BM's every day and is unsure why she is constipated. Of note, she was told at [facility] that she has internal hemorrhoids (unclear how this was determined). Patients labs were notable for Hg 13.2. BUN was slightly elevated however has been higher previously. LFTs were noted to be elevated which is new for patient. She will be admitted to hospitalist service for further management. Hospital Course Hospital Course: She was treated with laxatives and suppositories without good effect. Eventually she required repeated manual disimpaction. She had no significant bleeding, but did have occasional spotting consistent with hemorrhoidal bleeding this was treated with hydrocortisone suppositories to good effect. She continued to complain of what she calls left hip pain so I obtained an x- ray which showed no acute abnormality. Closer examination revealed that the pain was in the left gluteus and appeared to be associated with muscle spasm and this was treated symptomatically. She requested assistance in finding alternative placement. Social work has spent several days trying to arrange that and they have been unsuccessful, so she will be returned to her previous living situation. Physical Exam Vital Signs: Temp Pulse Resp BP Pulse Ox 98.3 F 86 16 138/81 H 99 01/01/18 11:21 01/01/18 11:21 01/01/18 11:21 01/01/18 11:21 01/01/18 11:21 Intake & Output 12/31/17 01/01/18 01/02/18 05:59 05:59 05:59 Intake Total 2122 2619 10 Output Total 2650 3150 Balance -528 -531 10 Weight 218 lb 7.649 oz Results Laboratory Results: 12/31/17 04:29 01/01/18 04:41 01/01/18 04:41 Sodium 139.5 Potassium 4.3 Chloride 100 Carbon Dioxide 29 Anion Gap 11 BUN 19 Creatinine 0.78 Est GFR ( Amer) > 60 Est GFR (Non-Af Amer) > 60 Glucose 192 H Calcium 9.7 Phosphorus 3.6 Magnesium 2.1 Total Bilirubin 0.2 AST 32 ALT 59 H Alkaline Phosphatase 212 H Total Protein 7.6 Albumin 3.5 01/01/18 04:41 Creatine Kinase 25 L Impressions: Abdomen/Pelvis CT 12/27/17 17:01 IMPRESSION: Distended bladder. Dependent small stones or sludge in the gallbladder. Hip X-Ray 12/31/17 00:00 IMPRESSION: NEGATIVE STUDY OF THE LEFT HIP AND PELVIS. NO RADIOGRAPHIC EVIDENCE OF ACUTE INJURY. Qualifiers - * PATIENT BEING DISCHARGED WITH ANY OF THE FOLLOWING DIAGNOSIS: No
[2018-01-01] MEDS: BISACODYL 10 MG SUPP.RECT PR SCH (12:47)
[2018-01-01] MEDS: SENNOSIDES/DOCUSATE 8.6-50 MG 1 EACH TABLET PO SCH (17:29)
[2018-01-01] MEDS: PANTOPRAZOLE SODIUM 40 MG VIAL IV SCH (17:30)
[2018-01-01] MEDS: HYDROCODONE/ACETAMINOPHEN 5-325 MG TABLET PO PRN (20:41)
[2018-01-01] MEDS: TRAZODONE HCL 50 MG TABLET PO PRN (22:30)
[2018-01-01] MEDS: INSULIN GLARGINE,HUM.REC.ANLOG 300 UNIT/3 ML INSULN.PEN SUBCUT SCH (22:30)
[2018-01-02] MEDS: HYDROCODONE/ACETAMINOPHEN 5-325 MG TABLET PO PRN (02:43)
[2018-01-02] MEDS: METOPROLOL TARTRATE 25 MG TABLET PO SCH ×2 (05:33→17:24)
[2018-01-02] MEDS: LOSARTAN POTASSIUM 25 MG TABLET PO SCH (09:11)
[2018-01-02] MEDS: POLYETHYLENE GLYCOL 3350 POWDER 17 GM/1 PACKET PO SCH (09:11)
[2018-01-02] MEDS: ASPIRIN 81 MG TABLET, ENT COATED PO SCH (09:11)
[2018-01-02] MEDS: PAROXETINE HCL 20 MG TABLET PO SCH (09:11)
[2018-01-02] MEDS: INSULIN LISPRO 100 UNIT/ML 3 ML VIAL SUBCUT SCH (09:11)
[2018-01-02] MEDS: INSULIN LISPRO 100 UNIT/ML 3 ML VIAL SUBCUT PRN ×3 (09:11→17:24)
[2018-01-02] MEDS: LEVOFLOXACIN 500 MG TABLET PO SCH (09:11)
[2018-01-02] MEDS: ENOXAPARIN SODIUM INJ 40 MG/0.4 ML DISP.SYRIN SUBCUT SCH (09:11)
[2018-01-02] MEDS: LUBIPROSTONE 24 MCG CAPSULE PO SCH ×2 (09:16→17:24)
--- NOTE | 2018-01-02 11:51 | PDOC PROGRESS REPORT ---
Subjective Progress Note for:: 01/02/18 Subjective:: No new issues. Waiting for placement Reason For Visit: LOWER GI BLEED Physical Exam Vital Signs: Temp Pulse Resp BP Pulse Ox 97.4 F 77 20 137/79 H 100 01/02/18 07:15 01/02/18 07:15 01/02/18 07:15 01/02/18 07:15 01/02/18 07:15 Intake & Output 01/01/18 01/02/18 01/03/18 05:59 05:59 05:59 Intake Total 2619 1700 750 Output Total 3150 1450 Balance -531 250 750 Weight 218 lb 7.649 oz 217 lb 13.067 oz General appearance: PRESENT: no acute distress, obese Respiratory exam: PRESENT: clear to auscultation hattie Cardiovascular exam: PRESENT: RRR GI/Abdominal exam: PRESENT: soft Extremities exam: ABSENT: other Neurological exam: PRESENT: alert - No edema Psychiatric exam: PRESENT: flat affect Skin exam: PRESENT: warm Results Laboratory Results: 12/31/17 04:29 01/01/18 04:41 01/01/18 04:41 Creatine Kinase 25 L Impressions: Abdomen/Pelvis CT 12/27/17 17:01 IMPRESSION: Distended bladder. Dependent small stones or sludge in the gallbladder. Hip X-Ray 12/31/17 00:00 IMPRESSION: NEGATIVE STUDY OF THE LEFT HIP AND PELVIS. NO RADIOGRAPHIC EVIDENCE OF ACUTE INJURY. Assessment & Plan - Diagnosis (1) CIDP (chronic inflammatory demyelinating polyneuropathy) Is this a current diagnosis for this admission?: Yes Plan: Very debilitated. Physical and occupational therapy working with her. (2) Left hip pain Is this a current diagnosis for this admission?: Yes Plan: Hip x-ray was negative. Seems to be more related to muscle spasm than her actual hip. Symptomatic treatment (3) Chronic pain associated with significant psychosocial dysfunction Is this a current diagnosis for this admission?: Yes (4) Constipation Qualifiers: Constipation type: unspecified constipation type Qualified Code(s): K59.00 - Constipation, unspecified Is this a current diagnosis for this admission?: Yes Plan: Continue present bowel regimen (5) Rectal bleeding Is this a current diagnosis for this admission?: Yes Plan: Resolved. Hemorrhoidal. Continue as needed hydrocortisone suppositories (6) Diabetes mellitus type 2 in obese Is this a current diagnosis for this admission?: Yes Plan: Still running high. I will increase her baseline insulin. (7) Hypertension Qualifiers: Hypertension type: essential hypertension Qualified Code(s): I10 - Essential (primary) hypertension Is this a current diagnosis for this admission?: Yes Plan: Improved with the addition of a beta-damaris. Continue
[2018-01-02] MEDS: BISACODYL 10 MG SUPP.RECT PR SCH (13:00)
[2018-01-02 15:22] VITALS: BP 138/84
--- NOTE | 2018-01-02 16:38 | Progress Note ---
Provider Note Provider Note: Patient now has [facility]ated [facility]. She will be transferred there per her discharge summary from yesterday.
[2018-01-02] MEDS: SENNOSIDES/DOCUSATE 8.6-50 MG 1 EACH TABLET PO SCH (17:24)
[2018-01-02] MEDS ORDERED: INSULIN GLARGINE,HUM.REC.ANLOG 300 UNIT/3 ML INSULN.PEN SUBCUT SCH (22:00)
== END 2018-01-02 20:15 ==
LOC: ER 12:31 → INTOOBSV 17:28 → EH 17:28 → 3N 20:45
PROVIDERS: ADMIT Student in an Organized Health Care Education/Training Program; ATTEND Student in an Organized Health Care Education/Training Program
DX: G61.81 Chronic inflammatory demyelinating polyneuritis (principal); M25.552 Pain in left hip; G89.4 Chronic pain syndrome; K56.41 Fecal impaction; K62.5 Hemorrhage of anus and rectum; K64.9 Unspecified hemorrhoids; E11.42 Type 2 diabetes mellitus with diabetic polyneuropathy; I10 Essential (primary) hypertension; R10.819 Abdominal tenderness, unspecified site; R79.89 Other specified abnormal findings of blood chemistry; M19.90 Unspecified osteoarthritis, unspecified site; G61.0 Guillain-Barre syndrome; E66.9 Obesity, unspecified; R53.81 Other malaise; F32.9 Major depressive disorder, single episode, unspecified; E11.621 Type 2 diabetes mellitus with foot ulcer; L97.529 Non-pressure chronic ulcer of other part of left foot with unspecified severity; M62.59 Muscle wasting and atrophy, not elsewhere classified, multiple sites; M25.551 Pain in right hip; Z85.72 Personal history of non-Hodgkin lymphomas; Z79.899 Other long term (current) drug therapy; Z90.49 Acquired absence of other specified parts of digestive tract; Z79.4 Long term (current) use of insulin; Z98.51 Tubal ligation status; Z79.82 Long term (current) use of aspirin; Z91.14 Patient's other noncompliance with medication regimen; Z68.33 Body mass index [BMI] 33.0-33.9, adult; Z91.81 History of falling
CPT/HCPCS: 99285; 96374; 36415 ×4; 87070; 87205; 82962 ×7; 82550; 83690; 83735; 84100; 85025 ×2; 85027 ×2; 85652; 85610; 85730; 87077; 80048; 80053 ×3; 87186; 73502; 74177; 97530; 97110 ×2; 97163; 97167; G0378 ×6; A9270 ×66; J3490 ×16; J3010; J2270; J1650 ×6; C9113 ×6; G8978; G8979; J1815; S0164

== ENCOUNTER → 2018-10-29 | Outpatient (CLI) | payer MEDICARE, BC ==
--- NOTE | 2018-10-29 16:20 | RADIOLOGY REPORT (SQ) ---
EXAM DESCRIPTION: FOOT RIGHT COMPLETE COMPLETED DATE/TIME: 10/29/2018 3:02 pm REASON FOR STUDY: TYPE 2 DIABETES MELLITUS WITH FOOT ULCER E11.621 TYPE 2 DIABETES MELLITUS WITH FO OT ULCER COMPARISON: None. NUMBER OF VIEWS: Three views. TECHNIQUE: AP, lateral and oblique radiographic images acquired of the right foot. LIMITATIONS: Positioning. FINDINGS: MINERALIZATION: Normal. BONES: Cortical disruption on medial margin of the medial cuneiform. JOINTS: Limited evaluation of the Lisfranc joints due to positioning. SOFT TISSUES: No foreign body. OTHER: No other significant finding. IMPRESSION: Possible osteomyelitis medial margin medial cuneiform. TECHNICAL DOCUMENTATION: JOB ID: [id number] [employer]- All Rights Reserved Reading location - IP/workstation name: [email or web address]
== END ==
LOC: OD 13:54
PROVIDERS: ATTEND Surgery
DX: E11.621 Type 2 diabetes mellitus with foot ulcer (principal)

== ENCOUNTER → 2018-11-02 | Outpatient (CLI) | payer MEDICARE, BC ==
--- NOTE | 2018-11-03 08:40 | XCELERA REPORT ---
[address] [address] Lower Extremity Arterial Evaluation Name: MARIA DEL ROSARIO ANDERSEN Age: 63 yrs Gender: Female : 1955 Patient Status: Outpatient Patient Location: Study Date: 11/02/2018 02:28 PM Procedure: A color flow and duplex scan of the lower extremity arteries was performed bilaterally with velocity and waveform anaylsis. Reason For Study: LEG PAIN Ordering Physician: BRUCE GUILLEN Performed By: Jolynn Clark Measurements and Calculations Right Left MANAGER OF DATA PSV 110.0 107.5 cm/sec Prox PFA PSV 110.0 74.2 cm/sec Prox Pop A PSV 76.1 46.2 cm/sec Mid TONY PSV -126.3 cm/sec Mid LABORER PLUMBING PSV 51.1 cm/sec Dist LABORER PLUMBING PSV 52.1 cm/sec Right Side Arterial Evaluation Normal velocity and biphasic waveforms noted from the Common Femoral artery to the Anterior Tibial artery. Mild spectral broadening only. Not able to evaluate the Posterior Tibial or the Dorsalis Pedis due to bandaging. Ankle Brachial index not obtained due to presence of bandaging. Left Side Arterial Evaluation Normal velocity and biphasic waveforms noted from the Common Femoral artery to the Posterior Tibial artery. Mild spectral broadening only. Not able to evaluate the Anterior Tibial or the Dorsalis Pedis due to bandaging. . Ankle Brachial index not obtained due to presence of bandaging. Interpretation Summary Moderate hemodynamically significant lesions in the bilateral lower extremities, on duplex imaging, at rest. Inflow, Aorta Iliac compromise is suggested. Moderate hemodynamically significant lesions in the bilateral lower extremities, on duplex imaging, at rest. : BRUCE GUILLEN > Bruce Guillen
== END ==
LOC: SP 16:11
PROVIDERS: ATTEND Surgery
DX: M79.662 Pain in left lower leg (principal); M79.661 Pain in right lower leg
CPT/HCPCS: 93925

== ENCOUNTER → 2018-11-04 | Outpatient (CLI) | payer MEDICARE, BC ==
[2018-11-04 15:54] LABS: ABSOLUTE BASOPHILS # (AUTO) 0.1 10^3/uL (0.0-0.2); ABSOLUTE EOSINOPHILS # (AUTO) 0.1 10^3/uL (0.0-0.6); ABSOLUTE LYMPHOCYTES (AUTO) 0.8 10^3/uL (0.5-4.7); ABSOLUTE MONOCYTES (AUTO) 0.6 10^3/uL (0.1-1.4); ABSOLUTE NEUT (AUTO) 6.5 10^3/uL (1.7-8.2); BASOPHILS % (AUTO) 0.8 % (0-2); HEMATOCRIT 38.1 % (36.0-47.0); HEMOGLOBIN 12.6 g/dL (12.0-15.5); LYMPHOCYTES % (AUTO) 9.7 % (13-45); MEAN CORPUSCULAR HEMOGLOBIN 29.8 pg (27.0-33.4); MEAN CORPUSCULAR HGB CONC 33.1 g/dL (32.0-36.0); MEAN CORPUSCULAR VOLUME 90 fl (80-97); MONOCYTES % (AUTO) 7.5 % (3-13); PLATELET COUNT 435 10^3/uL (150-450); RED BLOOD COUNT 4.23 10^6/uL (3.72-5.28); RED CELL DISTRIBUTION WIDTH 14.1 % (11.5-14.0); TOTAL CELLS COUNTED % (AUTO) 100 %
[2018-11-04 16:27] LABS: ALANINE AMINOTRANSFERASE 21 U/L (9-52); ALBUMIN 3.9 g/dL (3.5-5.0); ALKALINE PHOSPHATASE 83 U/L (38-126); ANION GAP 8 (5-19); ASPARTATE AMINO TRANSFERASE 12 U/L (14-36); BILIRUBIN,DIRECT 0.3 mg/dL (0.0-0.4); BILIRUBIN,TOTAL 0.5 mg/dL (0.2-1.3); BLOOD UREA NITROGEN 13 mg/dL (7-20); CALCIUM 9.7 mg/dL (8.4-10.2); CARBON DIOXIDE 30 mmol/L (22-30); CHLORIDE 98 mmol/L (98-107); GLUCOSE 236 mg/dL (75-110); POTASSIUM 4.5 mmol/L (3.6-5.0); SODIUM 135.6 mmol/L (137-145)
[2018-11-04 16:33] LABS: ERYTHROCYTE SEDIMENTATION RATE 91 mm/hr (0-30)
[2018-11-04 16:43] LABS: C-REACTIVE PROTEIN 146.1 mg/L (<10.0)
== END ==
LOC: WC 14:03
PROVIDERS: ATTEND Surgery
DX: L97.512 Non-pressure chronic ulcer of other part of right foot with fat layer exposed (principal)
CPT/HCPCS: 36415; 80053; 85025; 85652; 86140

== ENCOUNTER 2018-11-30 11:46 | Inpatient (IN) | payer MEDICARE, BC ==
[2018-11-30] MEDS ORDERED: VANCOMYCIN HCL INJ 1000 MG VIAL IV ONE (11:52)
--- NOTE | 2018-11-30 11:54 | ER Document Report ---
ED General - General Stated Complaint: FOOT PAIN Time Seen by Provider: 11/30/18 11:52 Notes: 63-year-old lady with diabetes chronic venous disease immobility, presenting with worsening swelling on the right leg with redness. 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 She missed her wound clinic appointment yesterday and home health came to her house today and was worried about the redness in the leg. She does complain of pain there but chronic. No fevers or chills. Patient was found in bed smelling of urine and poorly cared for. Adult Protective Services is involved. TRAVEL OUTSIDE OF THE [place] IN LAST 30 DAYS: No - Related Data Allergies/Adverse Reactions: lisinopril Allergy (Severe, Verified 11/30/18 12:15) cough Past Medical History - Social History Smoking Status: Never Smoker Family History: Reviewed & Not Pertinent - Past Medical History Cardiac Medical History: Reports: Hx Hypertension - Has a prescription for lisinopril but does not take it unless she feels lik Denies: Hx Heart Attack Pulmonary Medical History: Denies: Hx Asthma, Hx Bronchitis, Hx COPD, Hx Pneumonia Neurological Medical History: Denies: Hx Cerebrovascular Accident, Hx Seizures Endocrine Medical History: Reports: Hx Diabetes Mellitus Type 1 Renal/ Medical History: Denies: Hx Peritoneal Dialysis Malignancy Medical History: Reports: Hx Lymphoma Musculoskeletal Medical History: Reports Hx Arthritis - generalized Past Surgical History: Reports: Hx Appendectomy, Hx Tubal Ligation - Immunizations Hx Diphtheria, Pertussis, Tetanus Vaccination: Yes Hx Pneumococcal Vaccination: 08/25/13 Review of Systems - Review of Systems Notes: REVIEW OF SYSTEMS GEN: Denies fever, chills, weight loss ENT: Denies sore throat, nasal discharge, ear pain EYES: Denies blurry vision, eye pain, discharge CV: Denies chest pain, palpitations, edema RESP: Denies cough, shortness of breath, wheezing GI: Denies abdominal pain, nausea, vomiting, diarrhea MSK: Leg pain, SKIN: Denies rash, skin lesions LYMPH: Denies swollen glands/lymph nodes NEURO: Denies headache, focal weakness or numbness, dizziness PSYCH: Denies depression, suicidal or homicidal ideation PHYSICAL EXAMINATION General: No acute distress, well-nourished Head: Atraumatic, normocephalic ENT: Mouth normal, oropharynx moist, no exudates or tonsillar enlargement Eyes: Conjunctiva normal, pupils equal, lids normal Neck: No JVD, supple, no guarding CVS: Normal rate, regular rhythm, no murmurs Resp: No resp distress, equal and normal breath sounds bilaterally GI: Nondistended, soft, no tenderness to palpation, no rebound or guarding Ext: Right lower extremity has hyperpigmentation consistent with chronic venous disease 1+ edema but also blanching redness up to the knee. The right heel is necrotic, there is dry gangrene progressing from the heel. No bullae no drainage. Back: No CVA or midline TTP Skin: No rash, warm Lymphatic: No lymphadeopathy noted Neuro: Awake, alert. Face symmetric. GCS 15. Physical Exam - Vital signs Vitals: Temp Pulse Resp BP Pulse Ox 98.4 F 104 H 20 119/52 L 95 11/30/18 12:02 11/30/18 12:02 11/30/18 12:02 11/30/18 12:02 11/30/18 12:02 Course - Re-evaluation Re-evalutation: 11/30/18 13:08 Patient presents with acute cellulitis on top of chronic dry gangrene. She does not appear septic but will get a full workup. Empiric vancomycin has been ordered. Do not think she needs a full workup for the gangrene as this is already known. She is in a terrible home situation will need to be admitted. Patient was rechecked several times. Her vital signs remained stable. She had hyponatremia on her labs with an elevated lactic acid. Ordered fluids. Discussed with hospitalist for admission. - Vital Signs Vital signs: Temp Pulse Resp BP Pulse Ox 98.4 F 104 H 20 119/52 L 95 11/30/18 12:02 11/30/18 12:02 11/30/18 12:02 11/30/18 12:02 11/30/18 12:02 - Laboratory Result Diagrams: 11/30/18 12:00 11/30/18 12:00 Laboratory results interpreted by me: 11/30/18 11/30/18 12:00 12:00 Sodium 130.4 L Glucose 252 H Lactic Acid 2.4 H Critical Care Note - Critical Care Note Total time excluding time spent on procedures (mins): 32 Comments: The above patient is critically ill. Not including procedures, but including direct re-evaluations, speaking with patient and/or consultants, interpreting results, and documenting, I spent the total amount of minute listed listed above on critical care time Discharge - Discharge Clinical Impression: Cellulitis of right lower extremity, Elevated lactic acid level Condition: Fair Disposition: ADMITTED INPATIENT Admitting Provider: Arya (Hospitalist) Unit Admitted: Medical Floor
[2018-11-30 12:44] LABS: ANION GAP 7 (5-19); BLOOD UREA NITROGEN 13 mg/dL (7-20); CALCIUM 8.7 mg/dL (8.4-10.2); CARBON DIOXIDE 25 mmol/L (22-30); CHLORIDE 98 mmol/L (98-107); GLUCOSE 252 mg/dL (75-110); POTASSIUM 4.7 mmol/L (3.6-5.0); SODIUM 130.4 mmol/L (137-145)
[2018-11-30] MEDS ORDERED: DEXTROSE 40% GEL 15 GM TUBE PO PRN ×4 (12:51→13:11)
[2018-11-30] MEDS ORDERED: DEXTROSE 50%-WATER 25 GM/50 ML DISP.SYRIN IV PRN ×4 (12:51→13:11)
[2018-11-30] MEDS ORDERED: GLUCAGON,HUMAN RECOMB 1 MG INJ SUBCUT PRN (12:51)
[2018-11-30] MEDS ORDERED: ONDANSETRON 4 MG TAB.RAPDIS PO PRN (12:51)
[2018-11-30] MEDS ORDERED: NORMAL SALINE 1000 ML 1,000 ML IV ONE (13:08)
[2018-11-30] MEDS ORDERED: GLUCAGON,HUMAN RECOMB 1 MG INJ IM PRN (13:11)
[2018-11-30 15:07] LABS: ABSOLUTE BASOPHILS # (AUTO) 0.1 10^3/uL (0.0-0.2); ABSOLUTE LYMPHOCYTES (AUTO) 1.1 10^3/uL (0.5-4.7); ABSOLUTE MONOCYTES (AUTO) 0.7 10^3/uL (0.1-1.4); ABSOLUTE NEUT (AUTO) 6.8 10^3/uL (1.7-8.2); BASOPHILS % (AUTO) 0.8 % (0-2); EOSINOPHILS % (AUTO) 0.2 % (0-6); HEMATOCRIT 28.2 % (36.0-47.0); HEMOGLOBIN 9.4 g/dL (12.0-15.5); LYMPHOCYTES % (AUTO) 12.4 % (13-45); MEAN CORPUSCULAR HEMOGLOBIN 28.7 pg (27.0-33.4); MEAN CORPUSCULAR HGB CONC 33.3 g/dL (32.0-36.0); MONOCYTES % (AUTO) 8.4 % (3-13); PLATELET COUNT 455 10^3/uL (150-450); RED BLOOD COUNT 3.27 10^6/uL (3.72-5.28); SEGMENTED NEUTROPHILS % (AUTO) 78.2 % (42-78); TOTAL CELLS COUNTED % (AUTO) 100 %; WHITE BLOOD COUNT 8.7 10^3/uL (4.0-10.5)
[2018-11-30 15:10] LABS: MEAN CORPUSCULAR VOLUME 86 fl (80-97)
[2018-11-30] MEDS: INSULIN LISPRO 100 UNIT/ML 3 ML VIAL SUBCUT SCH ×3 (16:21→22:19)
--- NOTE | 2018-11-30 16:39 | PDOC CONSULTATION ---
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 She [facility] and recommended to have a right lower extremity amputation. However, she has declined the procedure until today when she noted severe redness of her right leg which prompted her to come to the ED. Past Medical History Cardiac Medical History: Reports: Hypertension - Has a prescription for lisinopril but does not take it unless she feels lik Denies: Myocardial Infarction Pulmonary Medical History: Denies: Asthma, Bronchitis, Chronic Obstructive Pulmonary Disease (COPD), Pneumonia Neurological Medical History: Denies: Seizures Endocrine Medical History: Reports: Diabetes Mellitus Type 1 Malignancy Medical History: Reports: Lymphoma Musculoskeltal Medical History: Reports: Arthritis - generalized Hematology: Denies: Anemia Past Surgical History Past Surgical History: Reports: Appendectomy, Orthopedic Surgery - left foot 4th digit amputation, Tubal Ligation Social History Smoking Status: Never Smoker Frequency of Alcohol Use: None Hx Recreational Drug Use: No Hx Prescription Drug Abuse: No Family History Family History: Reviewed & Not Pertinent Parental Family History Reviewed: No Children Family History Reviewed: No Sibling(s) Family History Reviewed.: No Medication/Allergy Home Medications: Aspirin [Ecotrin 81 mg EC Tablet] 81 mg PO DAILY 11/30/18 Ergocalciferol (Vitamin D2) [Drisdol 50,000 unit (1.25MG) Capsule] 50,000 unit PO TH@1000 11/30/18 Gabapentin [Neurontin 300 mg Capsule] 300 mg PO TID 11/30/18 Insulin Glargine,Hum.rec.anlog [Lantus Insulin 100 Unit/1 ml 10 ml] 40 units SQ QHS 11/30/18 Insulin Lispro [Humalog Kwikpen U-100] 30 units SQ MEALS 11/30/18 Losartan Potassium [Cozaar 25 mg Tablet] 25 mg PO DAILY 11/30/18 Metoprolol Tartrate [Lopressor 25 mg Tablet] 25 mg PO Q12 11/30/18 Paroxetine HCl [Paxil] 40 mg PO DAILY 11/30/18 Trazodone HCl [Desyrel] 150 mg PO QHS 11/30/18 Allergies/Adverse Reactions: lisinopril Allergy (Severe, Verified 11/30/18 12:15) cough Physical Exam Vital Signs: Temp Pulse Resp BP Pulse Ox 98.4 F 104 H 23 H 132/71 H 96 11/30/18 12:02 11/30/18 12:02 11/30/18 15:01 11/30/18 15:01 11/30/18 15:01 Intake & Output 11/29/18 11/30/18 12/01/18 06:59 06:59 06:59 Weight 108.862 kg General appearance: PRESENT: mild distress, obese Head exam: PRESENT: atraumatic Eye exam: PRESENT: EOMI Mouth exam: PRESENT: moist, neck supple Neck exam: PRESENT: full ROM Respiratory exam: PRESENT: clear to auscultation hattie Cardiovascular exam: PRESENT: RRR GI/Abdominal exam: PRESENT: soft, other - obese Rectal exam: PRESENT: deferred Extremities exam: PRESENT: +2 edema - right thigh and leg, other - Right leg/foot= necrosis of heel mainly dry gangrene with wet component and foul smell; diffuse erythema extending from ankle to below the knee Neurological exam: PRESENT: alert, awake Psychiatric exam: PRESENT: appropriate affect Results Laboratory Results: 11/30/18 14:40 11/30/18 12:00 11/30/18 11/30/18 11/30/18 12:00 12:00 12:00 WBC Cancelled RBC Cancelled Hgb Cancelled Hct Cancelled MCV Cancelled MCH Cancelled MCHC Cancelled RDW Cancelled Plt Count Cancelled Seg Neutrophils % Cancelled Lymphocytes % Cancelled Monocytes % Cancelled Eosinophils % Cancelled Basophils % Cancelled Absolute Neutrophils Cancelled Absolute Lymphocytes Cancelled Absolute Monocytes Cancelled Absolute Eosinophils Cancelled Absolute Basophils Cancelled Sodium 130.4 L Potassium 4.7 Chloride 98 Carbon Dioxide 25 Anion Gap 7 BUN 13 Creatinine 0.77 Est GFR ( Amer) > 60 Est GFR (Non-Af Amer) > 60 Glucose 252 H Lactic Acid 2.4 H Calcium 8.7 11/30/18 14:40 WBC 8.7 RBC 3.27 L Hgb 9.4 L Hct 28.2 L MCV 86 D MCH 28.7 MCHC 33.3 RDW 15.0 H Plt Count 455 H Seg Neutrophils % 78.2 H Lymphocytes % 12.4 L Monocytes % 8.4 Eosinophils % 0.2 Basophils % 0.8 Absolute Neutrophils 6.8 Absolute Lymphocytes 1.1 Absolute Monocytes 0.7 Absolute Eosinophils 0.0 Absolute Basophils 0.1 Sodium Potassium Chloride Carbon Dioxide Anion Gap BUN Creatinine Est GFR ( Amer) Est GFR (Non-Af Amer) Glucose Lactic Acid Calcium Assessment & Plan - Diagnosis (1) Gangrene of left foot Is this a current diagnosis for this admission?: Yes (2) Cellulitis of right lower extremity Is this a current diagnosis for this admission?: Yes - Plan Summary Plan Summary: A/ Obese diabetic female with right heel gangrene dry with wet component and foul smell Severe cellulitis left leg from ankle to below knee Moderately severe edema of right thigh and leg Type II dioabetes Peripheral neuropathy Guillan-Milford vs. diabetic type affecting sensory function of both lower extremities Patient non-ambulatory and bedridden Slightly elevated lactic acid 2.4 and tachicardia (HR101) Normal WBC P/ Admission Diabetic diet IV Cipro and Clindamycin Right thigh and leg elevation IVF Once her RLE edema and cellulitis have improved, she can undergo a safe AKA.
[2018-11-30] MEDS: CLINDAMYCIN 900 MG/D5W RTU 900 MG/50 ML RTUPB IV SCH (17:08)
[2018-11-30] MEDS: CIPROFLOXACIN 400 MG/D5W RTU 400 MG/200 ML RTUPB IV SCH (17:08)
[2018-11-30 17:35] LABS: APPEARANCE,URINE CLEAR; BILIRUBIN,URINE NEGATIVE (NEGATIVE); COLOR,URINE YELLOW; GLUCOSE, URINE 50 mg/dL (NEGATIVE); KETONES,URINE NEGATIVE (NEGATIVE); LEUKOCYTE ESTERASE,URINE NEGATIVE (NEGATIVE); NITRITE,URINE NEGATIVE (NEGATIVE); PROTEIN,URINE 30 mg/dL (NEGATIVE); URINE SPECIFIC GRAVITY 1.019
--- NOTE | 2018-11-30 17:41 | PDOC H&P ---
History of Present Illness Admission Date/PCP: 11/30/18 12:22 Patient complains of: RLE erythema History of Present Illness: MARIA DEL ROSARIO ANDERSEN is a 63 year old female with a PMH of diabetes type 2, CVA, HTN, HLD, non-Hodgkin's lymphoma. She presented to the emergency department at the request of her home health nurse due to erythema and swelling to the RLE, below the knee. The patient states that she noticed the erythema today. She denies pain, although states she has "very little feeling "in the leg. Of note, the patient has a large, circumferential wound to her right heel. Known history of dry gangrene. Currently seen on a weekly basis at the [facility] wound clinic. She is a patient of Dr. Yogesh Guillen. According to the patient, Dr. Guillen has started to discuss the possibility of RLE amputation due to poor wound healing. Laboratory studies reveal mild anemia, hyponatremia (130), and elevated lactate (2.5 mmol/L). Discussed the patient's case with surgery, Dr. Zabala. He agrees that the patient requires an [id number] amputation of the RLE. Plan to initiate broad-spectrum antibiotics, anticipate amputation in 48-72 hrs, admit to hospitalist service with surgery consulting. Past Medical History Cardiac Medical History: Reports: Hyperlipidema, Hypertension - Has a prescription for lisinopril but does not take it unless she feels lik Denies: Myocardial Infarction Pulmonary Medical History: Denies: Asthma, Bronchitis, Chronic Obstructive Pulmonary Disease (COPD), Pneumonia Neurological Medical History: Reports: Ischemic CVA Denies: Seizures Endocrine Medical History: Reports: Diabetes Mellitus Type 1 Malignancy Medical History: Reports: Lymphoma Musculoskeltal Medical History: Reports: Arthritis - generalized Hematology: Denies: Anemia Past Surgical History Past Surgical History: Reports: Appendectomy, Orthopedic Surgery - left foot 4th digit amputation, Tubal Ligation Social History Information Source: Patient Lives with: Spouse/Significant other Smoking Status: Former Smoker Number of Years Smokin Frequency of Alcohol Use: None Hx Recreational Drug Use: No Hx Prescription Drug Abuse: No - Advance Directive Resuscitation Status: Full Code Family History Family History: CAD Parental Family History Reviewed: Yes Children Family History Reviewed: Yes Sibling(s) Family History Reviewed.: Yes Medication/Allergy Home Medications: Aspirin [Ecotrin 81 mg EC Tablet] 81 mg PO DAILY 11/30/18 Ergocalciferol (Vitamin D2) [Drisdol 50,000 unit (1.25MG) Capsule] 50,000 unit PO TH@1000 11/30/18 Gabapentin [Neurontin 300 mg Capsule] 300 mg PO TID 11/30/18 Insulin Glargine,Hum.rec.anlog [Lantus Insulin 100 Unit/1 ml 10 ml] 40 units SQ QHS 11/30/18 Insulin Lispro [Humalog Kwikpen U-100] 30 units SQ MEALS 11/30/18 Losartan Potassium [Cozaar 25 mg Tablet] 25 mg PO DAILY 11/30/18 Metoprolol Tartrate [Lopressor 25 mg Tablet] 25 mg PO Q12 11/30/18 Paroxetine HCl [Paxil] 40 mg PO DAILY 11/30/18 Trazodone HCl [Desyrel] 150 mg PO QHS 11/30/18 Allergies/Adverse Reactions: lisinopril Allergy (Severe, Verified 11/30/18 12:15) cough Review of Systems All systems: reviewed and no additional remarkable complaints except as stated Physical Exam Vital Signs: Temp Pulse Resp BP Pulse Ox 98.4 F 104 H 23 H 132/71 H 96 11/30/18 12:02 11/30/18 12:02 11/30/18 15:01 11/30/18 15:01 11/30/18 15:01 Intake & Output 11/29/18 11/30/18 12/01/18 06:59 06:59 06:59 Weight 108.862 kg General appearance: PRESENT: disheveled, morbidly obese Head exam: PRESENT: atraumatic Eye exam: PRESENT: conjunctiva pink, PERRLA Mouth exam: PRESENT: moist, tongue midline Teeth exam: PRESENT: poor dentation Neck exam: PRESENT: full ROM Respiratory exam: PRESENT: clear to auscultation hattie, symmetrical, unlabored Cardiovascular exam: PRESENT: RRR Pulses: PRESENT: normal radial pulses, normal dorsalis pedis pul Vascular exam: ABSENT: normal capillary refill GI/Abdominal exam: PRESENT: soft. ABSENT: distended, tenderness Rectal exam: PRESENT: deferred Extremities exam: ABSENT: full ROM, pedal edema Musculoskeletal exam: ABSENT: ambulatory - wheelchair, full ROM Neurological exam: PRESENT: alert, awake, oriented to person, oriented to place, oriented to time, oriented to situation Psychiatric exam: PRESENT: appropriate affect Skin exam: PRESENT: dry - Dry gangrene to right heel, erythema - Erythema, warm to touch, below right knee, other - large gangrenous ulcer, circumferential, located on the right heel.. ABSENT: intact, normal color Results Laboratory Results: 11/30/18 14:40 11/30/18 12:00 11/30/18 11/30/18 11/30/18 12:00 12:00 12:00 WBC Cancelled RBC Cancelled Hgb Cancelled Hct Cancelled MCV Cancelled MCH Cancelled MCHC Cancelled RDW Cancelled Plt Count Cancelled Seg Neutrophils % Cancelled Lymphocytes % Cancelled Monocytes % Cancelled Eosinophils % Cancelled Basophils % Cancelled Absolute Neutrophils Cancelled Absolute Lymphocytes Cancelled Absolute Monocytes Cancelled Absolute Eosinophils Cancelled Absolute Basophils Cancelled Sodium 130.4 L Potassium 4.7 Chloride 98 Carbon Dioxide 25 Anion Gap 7 BUN 13 Creatinine 0.77 Est GFR ( Amer) > 60 Est GFR (Non-Af Amer) > 60 Glucose 252 H Lactic Acid 2.4 H Calcium 8.7 11/30/18 14:40 WBC 8.7 RBC 3.27 L Hgb 9.4 L Hct 28.2 L MCV 86 D MCH 28.7 MCHC 33.3 RDW 15.0 H Plt Count 455 H Seg Neutrophils % 78.2 H Lymphocytes % 12.4 L Monocytes % 8.4 Eosinophils % 0.2 Basophils % 0.8 Absolute Neutrophils 6.8 Absolute Lymphocytes 1.1 Absolute Monocytes 0.7 Absolute Eosinophils 0.0 Absolute Basophils 0.1 Sodium Potassium Chloride Carbon Dioxide Anion Gap BUN Creatinine Est GFR ( Amer) Est GFR (Non-Af Amer) Glucose Lactic Acid Calcium Status: Imported from PACS Assessment and Plan - Diagnosis (1) Dry gangrene Is this a current diagnosis for this admission?: Yes Plan: Circumferential wound to the right foot, specifically the heel (+) Dry gangrene Patient seen weekly at [facility] wound clinic Wound currently open to air Consulted surgery, recommend above the knee amputation (2) Cellulitis of right lower extremity Is this a current diagnosis for this admission?: Yes Plan: Cellulitis of the RLE Sources include gangrenous foot ulcer or venous stasis cellulitis Lactate 2.5, administered IVF bolus x 2 Continue with maintenance IVF Plan for broad spectrum antibiotics Elevate extremity to alleviate mild edema Ultimate plan is to amputate RLE (above the knee) in 48-72 hrs (3) DVT prophylaxis Is this a current diagnosis for this admission?: Yes Plan: Daily Lovenox injections (4) Diabetes mellitus type 2 in obese Is this a current diagnosis for this admission?: Yes Plan: PMH diabetes type 2 Hgb A1c in a.m. Accu-Cheks AC at bedtime Humalog sliding scale insulin Home dose Lantus Diabetic diet (5) Hypertension Qualifiers: Hypertension type: essential hypertension Qualified Code(s): I10 - Essential (primary) hypertension Is this a current diagnosis for this admission?: Yes Plan: PMH HTN Continue home dose metoprolol and Cozaar - Time Time Spent with patient: 15-24 minutes Medications reviewed and adjusted accordingly: Yes Anticipated discharge: Home - Inpatient Certification Based on my medical assessment, after consideration of the patient's comorbidities, presenting symptoms, or acuity I expect that the services needed warrant INPATIENT care.: Yes I certify that my determination is in accordance with my understanding of Medicare's requirements for reasonable and necessary INPATIENT services [42 CFR 412.3e].: Yes Medical Necessity: Need For IV Fluids, Need for IV Antibiotics, Risk of Complication if Not Cared For in Hospital
--- NOTE | 2018-11-30 17:44 | Progress Note ---
Provider Note Provider Note: ID Consult Note Asked to review chart and discussed pt briefly with Mile Vogel, who is admitting the patient. Pt is not seen or examined. Pt is a 63 year old morbidly obese woman with PMH including CVA, DM, and AIDP with immobility who [facility] ulceration with necrotic tissue. She presented today 11/30/18 to the ED with increased swelling and redness involving the RLE. She did not have a fever but is tachycardic and tachypneic. She was appreciated on exam to have edema, dry necrosis of the heel, and diffuse erythema extending from the ankle to the knee. Her WBC count is normal. Blood cultures have been sent. Surgical consultation has been sought. Pt appears to have a RLE skin/soft tissue infection superimposed on dry gangrene/necrotic heel wound. Empiric antibiotics - If there is malodor and necrosis or wet gangrene superimposed on the previously dry gangrenous area, including anaerobic activity is prudent. Broad spectrum activity initially is reasonable with something like vancomycin/Zosyn or vancomycin/Flagyl/cefepime, for instance, with plan to de- escalate depending on clinical course and any new cultures. She does not have a hx of MRSA or infection with Pseudomonas, so if there are no cultures to justify continued use, it may be possible to de-escalate over the course of the next few days. Ultimately, surgical intervention is likely needed if there is devitalized, necrotic tissue and poor blood supply that might limit the ability of inflammatory cells, wound healing factors, and antibiotics to penetrate involved areas. Hugo Newell MD [facility] Infectious Diseases pager [phone]
--- NOTE | 2018-11-30 17:46 | Progress Note ---
Provider Note Provider Note: DISCUSSED PATIENT'S CASE WITH [facility], DR. SAVAGE. SHE RECOMMENDED BROAD COVERAGE WITH VANCOMYCIN AND CEFEPIME. SURGEON, DR. CLARK INSISTED ON CIPROFLOXACIN AND CLINDAMYCIN FOR 'BETTER ANAEROBE COVERAGE.' PLAN TO LEAVE PATIENT ON CIPRO AND CLINDA. IF THE PATIENT SHOULD DETERIORATE, WILL CONSIDER BROADENING ANTIBIOTICS.
[2018-11-30] MEDS ORDERED: MORPHINE SULFATE 10 MG/ML INJ ONE (21:08)
[2018-11-30] MEDS ORDERED: FUROSEMIDE INJ/PF 40 MG/4 ML SDV ONE (21:09)
[2018-11-30] MEDS ORDERED: IPRATROPIUM/ALBUTEROL 0.5-2.5 MG/3 ML AMPUL NEB ONE (21:30)
[2018-11-30] MEDS ORDERED: MORPHINE SULFATE 10 MG/ML INJ IV ONE (21:30)
[2018-11-30] MEDS ORDERED: FUROSEMIDE INJ/PF 40 MG/4 ML SDV IV ONE (21:30)
[2018-11-30] MEDS: INSULIN GLARGINE,HUM.REC.ANLOG 1,000 UNIT/10 ML VIAL SUBCUT SCH (22:20)
[2018-11-30] MEDS: METOPROLOL TARTRATE 25 MG TABLET PO SCH (22:23)
[2018-11-30] MEDS: FAMOTIDINE 20 MG TABLET PO SCH (22:23)
[2018-11-30] MEDS: TRAZODONE HCL 50 MG TABLET PO SCH (22:24)
--- NOTE | 2018-11-30 23:59 | EKG REPORT ---
SEVERITY:- ABNORMAL ECG - SINUS TACHYCARDIA VENTRICULAR PREMATURE COMPLEX ANTERIOR INFARCT, AGE INDETERMINATE : Confirmed by: Torie Toribio 30-Nov-2018 23:59:33
[2018-12-01] MEDS: CLINDAMYCIN 900 MG/D5W RTU 900 MG/50 ML RTUPB IV SCH ×3 (02:18→17:39)
[2018-12-01 05:22] LABS: HEMATOCRIT 24.9 % (36.0-47.0); HEMOGLOBIN 8.4 g/dL (12.0-15.5); MEAN CORPUSCULAR HEMOGLOBIN 28.6 pg (27.0-33.4); MEAN CORPUSCULAR HGB CONC 33.6 g/dL (32.0-36.0); MEAN CORPUSCULAR VOLUME 85 fl (80-97); PLATELET COUNT 429 10^3/uL (150-450); RED BLOOD COUNT 2.93 10^6/uL (3.72-5.28); RED CELL DISTRIBUTION WIDTH 15.1 % (11.5-14.0); WHITE BLOOD COUNT 9.6 10^3/uL (4.0-10.5)
[2018-12-01] MEDS: CIPROFLOXACIN 400 MG/D5W RTU 400 MG/200 ML RTUPB IV SCH ×2 (05:29→16:07)
[2018-12-01 05:47] LABS: ALANINE AMINOTRANSFERASE 18 U/L (9-52); ALBUMIN 2.6 g/dL (3.5-5.0); ALKALINE PHOSPHATASE 93 U/L (38-126); ANION GAP 7 (5-19); ASPARTATE AMINO TRANSFERASE 12 U/L (14-36); BILIRUBIN,DIRECT 0.3 mg/dL (0.0-0.4); BILIRUBIN,TOTAL 0.4 mg/dL (0.2-1.3); BLOOD UREA NITROGEN 13 mg/dL (7-20); CALCIUM 8.3 mg/dL (8.4-10.2); CARBON DIOXIDE 27 mmol/L (22-30); CHLORIDE 98 mmol/L (98-107); GLUCOSE 167 mg/dL (75-110); POTASSIUM 4.4 mmol/L (3.6-5.0); TOTAL PROTEIN 5.5 g/dL (6.3-8.2)
[2018-12-01 06:05] LABS: ABSOLUTE LYMPHOCYTES# (MANUAL) 1.2 10^3/uL (0.5-4.7); ABSOLUTE MONOCYTES # (MANUAL) 0.9 10^3/uL (0.1-1.4); ABSOLUTE NEUTROPHILS# (MANUAL) 7.3 10^3/uL (1.7-8.2); BASOPHILS % (MANUAL) 0 % (0-2); EOSINOPHILS % (MANUAL) 2 % (0-6); LYMPHOCYTES % (MANUAL) 13 % (13-45); MONOCYTES % (MANUAL) 9 % (3-13); SEGMENTED NEUTROPHILS % (MAN) 76 % (42-78); TOTAL CELLS COUNTED 100
[2018-12-01 06:07] LABS: TOXIC GRANULATION 1+; TOXIC VACUOLATION PRESENT
[2018-12-01 06:08] LABS: ANISOCYTOSIS SLIGHT; OVALOCYTES 1+; PLATELET COMMENT ADEQUATE; POIKILOCYTOSIS SLIGHT
[2018-12-01] MEDS: FAMOTIDINE 20 MG TABLET PO SCH ×2 (09:04→22:45)
[2018-12-01] MEDS: ENOXAPARIN SODIUM INJ 40 MG/0.4 ML DISP.SYRIN SUBCUT SCH (09:07)
[2018-12-01] MEDS: METOPROLOL TARTRATE 25 MG TABLET PO SCH ×2 (09:07→22:47)
[2018-12-01] MEDS: PAROXETINE HCL 20 MG TABLET PO SCH (09:09)
[2018-12-01] MEDS: INSULIN LISPRO 100 UNIT/ML 3 ML VIAL SUBCUT SCH ×4 (09:12→22:44)
[2018-12-01] MEDS: LOSARTAN POTASSIUM 25 MG TABLET PO SCH (10:01)
[2018-12-01] MEDS: ACETAMINOPHEN 325 MG TABLET PO PRN ×2 (10:42→17:30)
[2018-12-01] MEDS ORDERED: DEXTROSE 50%-WATER 25 GM/50 ML DISP.SYRIN IV PRN ×4 (13:45→15:19)
[2018-12-01] MEDS ORDERED: GLUCAGON,HUMAN RECOMB 1 MG INJ SUBCUT PRN ×2 (13:45→15:19)
[2018-12-01] MEDS ORDERED: DEXTROSE 40% GEL 15 GM TUBE PO PRN ×4 (13:45→15:19)
[2018-12-01] MEDS: NORMAL SALINE 1000 ML 1,000 ML IV PRN (14:26)
--- NOTE | 2018-12-01 17:39 | PDOC PROGRESS REPORT ---
Subjective Progress Note for:: 12/01/18 Subjective:: This is 63 years old female patient with multiple comorbidities including hypertension, hyperlipidemia, COPD, history of ischemic CVA, type 2 diabetes mellitus and history of non-Hodgkin's lymphoma proximal to hospital with chief complaint of right lower leg inflammation and swelling. Patient has long-standing large circumferential wound on her right heel. According to the patient, Dr. Guillen has started to discuss the possibility of right lower extr emity amputation due to poor wound healing. Dr. Zabala consulted and he agrees that the patient needs AKA of right lower extremity. Reason For Visit: CELLULITIS, DRY GANGRENE R FOOT Physical Exam Vital Signs: Temp Pulse Resp BP Pulse Ox 97.3 F 69 20 106/62 100 12/01/18 16:00 12/01/18 16:00 12/01/18 16:00 12/01/18 16:00 12/01/18 16:00 Intake & Output 11/30/18 12/01/18 12/02/18 06:59 06:59 06:59 Intake Total 1300 250 Balance 1300 250 Weight 117 kg General appearance: PRESENT: no acute distress Head exam: PRESENT: atraumatic Eye exam: PRESENT: conjunctiva pink Neck exam: ABSENT: carotid bruit, JVD, lymphadenopathy, thyromegaly Respiratory exam: PRESENT: clear to auscultation hattie. ABSENT: rales, rhonchi, wheezes Cardiovascular exam: PRESENT: RRR. ABSENT: diastolic murmur, rubs, systolic murmur GI/Abdominal exam: PRESENT: normal bowel sounds, soft. ABSENT: distended, guarding, mass, organolmegaly, rebound, tenderness Neurological exam: PRESENT: alert, awake Results Laboratory Results: 12/01/18 04:31 12/01/18 04:31 11/30/18 11/30/18 12/01/18 17:00 21:54 04:31 WBC 9.6 RBC 2.93 L Hgb 8.4 L Hct 24.9 L MCV 85 MCH 28.6 MCHC 33.6 RDW 15.1 H Plt Count 429 Seg Neutrophils % Not Reportable Lymphocytes % Not Reportable Monocytes % Not Reportable Eosinophils % Not Reportable Basophils % Not Reportable Absolute Neutrophils Not Reportable Absolute Lymphocytes Not Reportable Absolute Monocytes Not Reportable Absolute Eosinophils Not Reportable Absolute Basophils Not Reportable Sodium Potassium Chloride Carbon Dioxide Anion Gap BUN Creatinine Est GFR ( Amer) Est GFR (Non-Af Amer) Glucose Lactic Acid 1.4 Calcium Magnesium Total Bilirubin AST ALT Alkaline Phosphatase Total Protein Albumin Urine Color YELLOW Urine Appearance CLEAR Urine pH 5.0 Ur Specific [place] 1.019 Urine Protein 30 H Urine Glucose (UA) 50 H Urine Ketones NEGATIVE Urine Blood NEGATIVE Urine Nitrite NEGATIVE Ur Leukocyte Esterase NEGATIVE Urine WBC (Auto) 1 Urine RBC (Auto) 1 Blood Type Antibody Screen 12/01/18 12/01/18 04:31 14:38 WBC RBC Hgb Hct MCV MCH MCHC RDW Plt Count Seg Neutrophils % Lymphocytes % Monocytes % Eosinophils % Basophils % Absolute Neutrophils Absolute Lymphocytes Absolute Monocytes Absolute Eosinophils Absolute Basophils Sodium 132.0 L Potassium 4.4 Chloride 98 Carbon Dioxide 27 Anion Gap 7 BUN 13 Creatinine 0.87 Est GFR ( Amer) > 60 Est GFR (Non-Af Amer) > 60 Glucose 167 H Lactic Acid Calcium 8.3 L Magnesium 1.9 Total Bilirubin 0.4 AST 12 L ALT 18 Alkaline Phosphatase 93 Total Protein 5.5 L Albumin 2.6 L Urine Color Urine Appearance Urine pH Ur Specific [place] Urine Protein Urine Glucose (UA) Urine Ketones Urine Blood Urine Nitrite Ur Leukocyte Esterase Urine WBC (Auto) Urine RBC (Auto) Blood Type O POSITIVE Antibody Screen NEGATIVE Assessment and Plan - Diagnosis (1) Cellulitis/right diabetic foot ulcer Is this a current diagnosis for this admission?: Yes Plan: Patient has been on triple antibiotics namely vancomycin, clindamycin, Cipro. I switched clindamycin and Cipro to Zosyn and I will continue the vancomycin. (2) Type 2 diabetes mellitus Is this a current diagnosis for this admission?: Yes Plan: Continue current regimen and hemoglobin A1c to evaluate the status of her diabetes. (3) COPD (chronic obstructive pulmonary disease) Qualifiers: Emphysema type: unspecified Is this a current diagnosis for this admission?: Yes Plan: Continue as needed bronchodilator (4) Hypertension Qualifiers: Hypertension type: essential hypertension Qualified Code(s): I10 - Essential (primary) hypertension Is this a current diagnosis for this admission?: Yes Plan: Continue current regimen. (5) Hyperlipidemia Is this a current diagnosis for this admission?: Yes Plan: Continue current regimen. (6) Obesity (BMI 30-39.9) Is this a current diagnosis for this admission?: Yes Plan: Lifestyle modification advised.
--- NOTE | 2018-12-01 20:14 | PDOC PROGRESS REPORT ---
Subjective Progress Note for:: 12/01/18 Subjective:: This is a 63-year-old female with gangrene of the right lower extremity. She is bedridden. She is resting in bed upon my arrival, and awakens to voice. She reports pain in the leg. She denies chest pain, shortness of breath. She does report weakness, fatigue, malaise. Reason For Visit: CELLULITIS, DRY GANGRENE R FOOT Physical Exam Vital Signs: Temp Pulse Resp BP Pulse Ox 97.3 F 69 20 106/62 100 12/01/18 16:00 12/01/18 16:00 12/01/18 16:00 12/01/18 16:00 12/01/18 16:00 Intake & Output 11/30/18 12/01/18 12/02/18 06:59 06:59 06:59 Intake Total 1300 568 Output Total 720 Balance 1300 -152 Weight 117 kg General appearance: PRESENT: disheveled, morbidly obese Head exam: PRESENT: atraumatic Eye exam: ABSENT: scleral icterus Mouth exam: PRESENT: moist Neck exam: ABSENT: meningismus, tenderness, thyromegaly, tracheal deviation Respiratory exam: PRESENT: unlabored. ABSENT: tachypnea, wheezes Cardiovascular exam: PRESENT: RRR Pulses: PRESENT: normal radial pulses GI/Abdominal exam: PRESENT: soft. ABSENT: distended, tenderness Rectal exam: PRESENT: deferred Extremities exam: PRESENT: other - Right heel with wet gangrene Neurological exam: PRESENT: awake, oriented to person, oriented to place Psychiatric exam: ABSENT: agitated, anxious, depressed Focused psych exam: ABSENT: delusional Skin exam: ABSENT: cyanosis, erythema, jaundice Results Laboratory Results: 12/01/18 04:31 12/01/18 04:31 11/30/18 12/01/18 12/01/18 21:54 04:31 04:31 WBC 9.6 RBC 2.93 L Hgb 8.4 L Hct 24.9 L MCV 85 MCH 28.6 MCHC 33.6 RDW 15.1 H Plt Count 429 Seg Neutrophils % Not Reportable Lymphocytes % Not Reportable Monocytes % Not Reportable Eosinophils % Not Reportable Basophils % Not Reportable Absolute Neutrophils Not Reportable Absolute Lymphocytes Not Reportable Absolute Monocytes Not Reportable Absolute Eosinophils Not Reportable Absolute Basophils Not Reportable Sodium 132.0 L Potassium 4.4 Chloride 98 Carbon Dioxide 27 Anion Gap 7 BUN 13 Creatinine 0.87 Est GFR ( Amer) > 60 Est GFR (Non-Af Amer) > 60 Glucose 167 H Lactic Acid 1.4 Calcium 8.3 L Magnesium 1.9 Total Bilirubin 0.4 AST 12 L ALT 18 Alkaline Phosphatase 93 Total Protein 5.5 L Albumin 2.6 L Blood Type Antibody Screen 12/01/18 14:38 WBC RBC Hgb Hct MCV MCH MCHC RDW Plt Count Seg Neutrophils % Lymphocytes % Monocytes % Eosinophils % Basophils % Absolute Neutrophils Absolute Lymphocytes Absolute Monocytes Absolute Eosinophils Absolute Basophils Sodium Potassium Chloride Carbon Dioxide Anion Gap BUN Creatinine Est GFR ( Amer) Est GFR (Non-Af Amer) Glucose Lactic Acid Calcium Magnesium Total Bilirubin AST ALT Alkaline Phosphatase Total Protein Albumin Blood Type O POSITIVE Antibody Screen NEGATIVE Assessment & Plan - Diagnosis (1) Gangrene of right foot Is this a current diagnosis for this admission?: Yes - Plan Summary Plan Summary: This is a 63-year-old female with wet gangrene of the right foot. The patient has been receiving IV antibiotics. Previously she has refused lower extremity amputation. Unfortunately she has developed wet gangrene, and the patient will require above-knee amputation. This has been discussed with the patient. She is currently in agreement with the treatment plan. Plan for above-knee amputation tomorrow.
[2018-12-01] MEDS: PIPERACILLIN SODIUM/TAZOBACTAM 3.375 GM in NORMAL SALINE 100 ML IV SCH (21:16)
[2018-12-01] MEDS: TRAZODONE HCL 50 MG TABLET PO SCH (22:44)
[2018-12-01] MEDS: INSULIN GLARGINE,HUM.REC.ANLOG 1,000 UNIT/10 ML VIAL SUBCUT SCH (22:46)
[2018-12-02] MEDS: PIPERACILLIN SODIUM/TAZOBACTAM 3.375 GM in NORMAL SALINE 100 ML IV SCH ×4 (00:15→18:26)
[2018-12-02] MEDS: NORMAL SALINE 1000 ML 1,000 ML IV PRN (03:29)
[2018-12-02] MEDS: INSULIN LISPRO 100 UNIT/ML 3 ML VIAL SUBCUT SCH ×4 (09:01→21:36)
[2018-12-02] MEDS: ENOXAPARIN SODIUM INJ 40 MG/0.4 ML DISP.SYRIN SUBCUT SCH (09:43)
[2018-12-02] MEDS: METOPROLOL TARTRATE 25 MG TABLET PO SCH ×2 (09:56→21:34)
[2018-12-02] MEDS: LOSARTAN POTASSIUM 25 MG TABLET PO SCH (09:56)
[2018-12-02] MEDS: PAROXETINE HCL 20 MG TABLET PO SCH (09:57)
[2018-12-02] MEDS: FAMOTIDINE 20 MG TABLET PO SCH ×2 (09:57→21:34)
[2018-12-02] MEDS ORDERED: DIPHENHYDRAMINE HCL 50 MG/ML VIAL IV PRN ×2 (12:14→13:06)
[2018-12-02] MEDS ORDERED: ONDANSETRON HCL INJ/PF 4 MG/2 ML SDV IV PRN (12:14)
[2018-12-02] MEDS ORDERED: PROMETHAZINE HCL INJ 25 MG/1 ML VIAL IV PRN ×4 (12:14→13:06)
[2018-12-02] MEDS ORDERED: MEPERIDINE HCL/PF INJ 25 MG/1 ML DISP.SYRIN IV PRN ×2 (12:14→13:06)
[2018-12-02] MEDS ORDERED: FENTANYL CITRATE INJ/PF 100 MCG/2 ML AMPUL IV PRN ×6 (12:14→13:06)
[2018-12-02] MEDS ORDERED: MORPHINE SULFATE 10 MG/ML INJ IV PRN (12:14)
[2018-12-02] MEDS ORDERED: FENTANYL CITRATE INJ/PF 100 MCG/2 ML AMPUL ONE (12:15)
[2018-12-02] MEDS ORDERED: PROPOFOL INJ 200 MG/20 ML VIAL IV ONE (12:15)
[2018-12-02] MEDS ORDERED: MIDAZOLAM 2 MG/2 ML INJ ONE (12:15)
[2018-12-02] MEDS ORDERED: KETAMINE HCL INJ 500 MG/10 ML VIAL ONE (12:34)
[2018-12-02] MEDS ORDERED: OXYCODONE-ACETAMINOPHEN 5-325 MG TABLET PO PRN ×2 (13:06)
--- NOTE | 2018-12-02 13:27 | PDOC PROGRESS REPORT ---
Subjective Progress Note for:: 12/02/18 Subjective:: Patient seen resting in bed comfortably. She is scheduled for right AKA. I will discontinue her antibiotics 24-hour postop. Reason For Visit: CELLULITIS, DRY GANGRENE R FOOT Physical Exam Vital Signs: Temp Pulse Resp BP Pulse Ox 98.3 F 84 17 122/53 L 98 12/02/18 07:47 12/02/18 07:47 12/02/18 07:47 12/02/18 07:47 12/02/18 07:47 Intake & Output 12/01/18 12/02/18 12/03/18 06:59 06:59 06:59 Intake Total 1300 2068 Output Total 720 Balance 1300 1348 Weight 117 kg 120 kg General appearance: PRESENT: no acute distress, obese Mouth exam: PRESENT: moist Respiratory exam: PRESENT: clear to auscultation hattie. ABSENT: rales, rhonchi, wheezes Cardiovascular exam: PRESENT: RRR. ABSENT: diastolic murmur, rubs, systolic murmur GI/Abdominal exam: PRESENT: normal bowel sounds, soft. ABSENT: distended, gua rding, mass, organolmegaly, rebound, tenderness Results Laboratory Results: 12/01/18 04:31 12/01/18 04:31 12/01/18 14:38 Blood Type O POSITIVE Antibody Screen NEGATIVE 11/30/18 17:00 Clean Catch Midstream Urine Culture - Final NO GROWTH 2 DAYS Assessment and Plan - Diagnosis (1) Cellulitis/right diabetic foot ulcer Is this a current diagnosis for this admission?: Yes Plan: Patient is scheduled for right AKA. We will continue her antibiotics for 24 hours postop. (2) Type 2 diabetes mellitus Is this a current diagnosis for this admission?: Yes Plan: Continue current regimen and hemoglobin A1c to evaluate the status of her diabetes. (3) COPD (chronic obstructive pulmonary disease) Qualifiers: Emphysema type: unspecified Is this a current diagnosis for this admission?: Yes Plan: Continue as needed bronchodilator (4) Hypertension Qualifiers: Hypertension type: essential hypertension Qualified Code(s): I10 - Essential (primary) hypertension Is this a current diagnosis for this admission?: Yes Plan: Continue current regimen. (5) Hyperlipidemia Is this a current diagnosis for this admission?: Yes Plan: Continue current regimen. (6) Obesity (BMI 30-39.9) Is this a current diagnosis for this admission?: Yes Plan: Lifestyle modification advised.
[2018-12-02] MEDS ORDERED: NEOSTIGMINE METHYLSULFATE 10 MG/10 ML VIAL ONE (13:55)
[2018-12-02] MEDS ORDERED: SUCCINYLCHOLINE CHLORIDE INJ 200 MG/10 ML VIAL ONE (13:55)
[2018-12-02] MEDS ORDERED: GLYCOPYRROLATE 1 MG/5 ML SYRINGE ONE (13:55)
[2018-12-02] MEDS ORDERED: ROCURONIUM BROMIDE INJ 50 MG/5 ML VIAL IV ONE (13:55)
[2018-12-02 14:07] LABS: HEMATOCRIT 21.5 % (36.0-47.0); MEAN CORPUSCULAR HEMOGLOBIN 28.4 pg (27.0-33.4); MEAN CORPUSCULAR HGB CONC 33.3 g/dL (32.0-36.0); MEAN CORPUSCULAR VOLUME 85 fl (80-97); PLATELET COUNT 385 10^3/uL (150-450); RED BLOOD COUNT 2.52 10^6/uL (3.72-5.28); WHITE BLOOD COUNT 9.7 10^3/uL (4.0-10.5)
[2018-12-02 14:18] LABS: HEMOGLOBIN 7.1 g/dL (12.0-15.5)
--- NOTE | 2018-12-02 14:24 | Operative Report ---
Nonrecallable Operative Report DATE OF SURGERY: 12/02/18 PREOPERATIVE DIAGNOSIS: gangrene rt foot POSTOPERATIVE DIAGNOSIS: gangrene rt foot OPERATION: rt aka SURGEON: MARTHA OLMEDO 1ST PHP DEVELOPER: WILBERTO REGAN ANESTHESIA: GA TISSUE REMOVED OR ALTERED: rt leg COMPLICATIONS: none ESTIMATED BLOOD LOSS: 150cc INTRAOPERATIVE FINDINGS: see dictation PROCEDURE: see dictation
--- NOTE | 2018-12-02 14:54 | OPERATIVE REPORT E ---
Operative Report NAME: MARIA DEL ROSARIO ANDERSEN : 1955 AGE: 63Y DATE OF SURGERY: 12/02/2018 ROOM: 532 PREOPERATIVE DIAGNOSIS: GANGRENE RIGHT FOOT. POSTOPERATIVE DIAGNOSIS: GANGRENE RIGHT FOOT. OPERATION: RIGHT ABOVE KNEE AMPUTATION. SURGEON: MARTHA OLMEDO M.D. POOL HAND: Bettina Oakley PA-C, for assistance with wound retraction and wound closure. PROCEDURE: The patient was brought to the operating room, awake, alert, and in stable condition. Placed on the operating table in supine position and induced under general anesthesia, and intubated. The right upper thigh and leg were prepped and draped in usual sterile manner for the procedure. On the right lower thigh, a fishmouth incision was utilized with a 10 blade, and dissection was carried down through subcutaneous tissue with Bovie cautery. Once dividing all the subcutaneous tissue, we divided the fascia of the anterior recti muscles and the quadriceps femoris muscles. The lateral muscles were also divided with Bovie cautery, and small perforating bleeders were controlled with Bovie cautery. We then reached the femoral artery and femoral vein, and these were both separately clamped and ligated with a stick tie of 0 Vicryl suture. We continued our dissection down posteriorly through the posterior compartment with Bovie cautery. The tendons were also divided and the femoral nerve was divided after being clamped with a Pean clamp and then oversewn with 0 Vicryl tie to avoid a neuroma. When we reached the posterior skin flap, this was excised with a 10 blade. We then came across the bone with a bone saw transversely, and then filed the edges until smooth. Once this was completed, we checked for hemostasis, irrigated the wound copiously with normal saline. Once good hemostasis obtained with Bovie cautery, the posterior and anterior subcutaneous tissue and superficial fascia were closed with interrupted placed 0 Vicryl sutures, and then the skin was closed transversely with interrupted placed 2-0 Nylon sutures, placed in a Smead-Vogel fashion. A sterile dressing was applied which completed the procedure. Estimated blood loss was 150 mL. Sponge and needle counts were correct x2. The patient was then transferred to recovery in stable condition. DICTATING PHYSICIAN: MARTHA OLMEDO M.D. [id number] PHY#: [id number] ID: [id number] JOB#: [id number] ACCT: [id number] cc:MARTHA OLMEDO M.D. >
[2018-12-02] MEDS: FENTANYL CITRATE INJ/PF 100 MCG/2 ML AMPUL ONE ×2 (14:57→15:04)
[2018-12-02] MEDS: OXYCODONE-ACETAMINOPHEN 5-325 MG TABLET PO PRN ×2 (17:43→21:33)
[2018-12-02] MEDS: TRAZODONE HCL 50 MG TABLET PO SCH (21:36)
[2018-12-02] MEDS: INSULIN GLARGINE,HUM.REC.ANLOG 1,000 UNIT/10 ML VIAL SUBCUT SCH (21:37)
[2018-12-03] MEDS: PIPERACILLIN SODIUM/TAZOBACTAM 3.375 GM in NORMAL SALINE 100 ML IV SCH ×4 (00:18→17:11)
[2018-12-03] MEDS: OXYCODONE-ACETAMINOPHEN 5-325 MG TABLET PO PRN ×3 (08:15→22:04)
[2018-12-03] MEDS: INSULIN LISPRO 100 UNIT/ML 3 ML VIAL SUBCUT SCH ×4 (08:17→22:05)
[2018-12-03] MEDS ORDERED: ERGOCALCIFEROL (VITAMIN D2) 50000 UNIT (1.25 MG) CAPSULE PO SCH (10:00)
[2018-12-03] MEDS: LOSARTAN POTASSIUM 25 MG TABLET PO SCH (10:22)
[2018-12-03] MEDS: METOPROLOL TARTRATE 25 MG TABLET PO SCH ×2 (10:23→22:03)
[2018-12-03] MEDS: FAMOTIDINE 20 MG TABLET PO SCH ×2 (10:24→22:04)
[2018-12-03] MEDS: PAROXETINE HCL 20 MG TABLET PO SCH (10:24)
[2018-12-03] MEDS: ENOXAPARIN SODIUM INJ 40 MG/0.4 ML DISP.SYRIN SUBCUT SCH (10:24)
--- NOTE | 2018-12-03 11:52 | PDOC PROGRESS REPORT ---
Subjective Progress Note for:: 12/03/18 Subjective:: Pains Right AKA Reason For Visit: CELLULITIS, DRY GANGRENE R FOOT Physical Exam Vital Signs: Temp Pulse Resp BP Pulse Ox 97.8 F 79 22 H 114/58 L 98 12/03/18 08:07 12/03/18 08:07 12/03/18 08:07 12/03/18 08:07 12/03/18 08:16 Intake & Output 12/02/18 12/03/18 12/04/18 06:59 06:59 06:59 Intake Total 2068 3400 Output Total 720 875 Balance 1348 2525 Weight 120 kg 41.2 kg 114.7 kg Results Laboratory Results: 12/02/18 13:36 12/01/18 04:31 12/01/18 12/02/18 14:38 13:36 WBC 9.7 RBC 2.52 L Hgb 7.1 L Hct 21.5 L MCV 85 MCH 28.4 MCHC 33.3 RDW 15.0 H Plt Count 385 Blood Type O POSITIVE Antibody Screen NEGATIVE 11/30/18 17:00 Clean Catch Midstream Urine Culture - Final NO GROWTH 2 DAYS Assessment & Plan - Time Time Spent with patient: 15-24 minutes - Inpatient Certification Medical Necessity: Need Close Monitoring Due to Risk of Patient Decompensation, Need For IV Fluids, Need for Pain Control, Risk of Complication if Not Cared For in Hospital - Plan Summary Plan Summary: Will change dressing in am Have PT to get OOB
[2018-12-03] MEDS: NORMAL SALINE 1000 ML 1,000 ML IV PRN (12:09)
--- NOTE | 2018-12-03 14:33 | PDOC PROGRESS REPORT ---
Subjective Progress Note for:: 12/03/18 Subjective:: I seen patient resting in bed comfortably. She complains of pain at the surgical site. Patient's hemoglobin yesterday dropped to 7 most probably due to blood loss anemia. She has been transfused 2 units of blood. Reason For Visit: CELLULITIS, DRY GANGRENE R FOOT Physical Exam Vital Signs: Temp Pulse Resp BP Pulse Ox 97.6 F 70 19 108/47 L 92 12/03/18 11:31 12/03/18 11:31 12/03/18 11:31 12/03/18 11:31 12/03/18 11:31 Intake & Output 12/02/18 12/03/18 12/04/18 06:59 06:59 06:59 Intake Total 2068 3400 100 Output Total 720 875 Balance 1348 2525 100 Weight 120 kg 41.2 kg 114.7 kg General appearance: PRESENT: no acute distress Eye exam: PRESENT: conjunctiva pink Neck exam: ABSENT: carotid bruit, JVD, lymphadenopathy, thyromegaly Respiratory exam: PRESENT: clear to auscultation hattie. ABSENT: rales, rhonchi, wheezes Cardiovascular exam: PRESENT: RRR. ABSENT: diastolic murmur, rubs, systolic murmur Neurological exam: PRESENT: alert, awake, oriented to time, oriented to sit uation Results Laboratory Results: 12/02/18 13:36 12/01/18 04:31 12/01/18 14:38 Blood Type O POSITIVE Antibody Screen NEGATIVE Assessment and Plan - Diagnosis (1) Acute blood loss anemia Is this a current diagnosis for this admission?: Yes Plan: Most probably bleeding from the surgical site. Patient transfused 2 units of blood. (2) Cellulitis/right diabetic foot ulcer Is this a current diagnosis for this admission?: Yes Plan: Patient is scheduled for right AKA. We will continue her antibiotics for 24 hours postop. (3) Type 2 diabetes mellitus Is this a current diagnosis for this admission?: Yes Plan: Continue current regimen and hemoglobin A1c to evaluate the status of her diabetes. (4) COPD (chronic obstructive pulmonary disease) Qualifiers: Emphysema type: unspecified Is this a current diagnosis for this admission?: Yes Plan: Continue as needed bronchodilator (5) Hypertension Qualifiers: Hypertension type: essential hypertension Qualified Code(s): I10 - Essential (primary) hypertension Is this a current diagnosis for this admission?: Yes Plan: Continue current regimen. (6) Hyperlipidemia Is this a current diagnosis for this admission?: Yes Plan: Continue current regimen. (7) Obesity (BMI 30-39.9) Is this a current diagnosis for this admission?: Yes Plan: Lifestyle modification advised.
[2018-12-03 20:11] LABS: ABSOLUTE BASOPHILS # (AUTO) 0.1 10^3/uL (0.0-0.2); ABSOLUTE EOSINOPHILS # (AUTO) 0.2 10^3/uL (0.0-0.6); ABSOLUTE LYMPHOCYTES (AUTO) 1.7 10^3/uL (0.5-4.7); ABSOLUTE MONOCYTES (AUTO) 0.9 10^3/uL (0.1-1.4); ABSOLUTE NEUT (AUTO) 5.4 10^3/uL (1.7-8.2); EOSINOPHILS % (AUTO) 2.1 % (0-6); HEMATOCRIT 28.5 % (36.0-47.0); LYMPHOCYTES % (AUTO) 20.6 % (13-45); MEAN CORPUSCULAR HEMOGLOBIN 29.3 pg (27.0-33.4); MEAN CORPUSCULAR HGB CONC 33.3 g/dL (32.0-36.0); MEAN CORPUSCULAR VOLUME 88 fl (80-97); MONOCYTES % (AUTO) 10.7 % (3-13); PLATELET COUNT 392 10^3/uL (150-450); RED BLOOD COUNT 3.24 10^6/uL (3.72-5.28); RED CELL DISTRIBUTION WIDTH 15.6 % (11.5-14.0); SEGMENTED NEUTROPHILS % (AUTO) 65.6 % (42-78); TOTAL CELLS COUNTED % (AUTO) 100 %; WHITE BLOOD COUNT 8.2 10^3/uL (4.0-10.5)
[2018-12-03 20:12] LABS: HEMOGLOBIN 9.5 g/dL (12.0-15.5)
[2018-12-03 20:24] LABS: ALANINE AMINOTRANSFERASE 14 U/L (9-52); ALBUMIN 2.7 g/dL (3.5-5.0); ALKALINE PHOSPHATASE 104 U/L (38-126); ANION GAP 6 (5-19); ASPARTATE AMINO TRANSFERASE 12 U/L (14-36); BILIRUBIN,DIRECT 0.3 mg/dL (0.0-0.4); BILIRUBIN,TOTAL 0.4 mg/dL (0.2-1.3); BLOOD UREA NITROGEN 15 mg/dL (7-20); CALCIUM 8.6 mg/dL (8.4-10.2); CARBON DIOXIDE 25 mmol/L (22-30); CHLORIDE 104 mmol/L (98-107); GLUCOSE 200 mg/dL (75-110); POTASSIUM 4.9 mmol/L (3.6-5.0); SODIUM 134.6 mmol/L (137-145); TOTAL PROTEIN 5.7 g/dL (6.3-8.2)
[2018-12-03] MEDS: TRAZODONE HCL 50 MG TABLET PO SCH (22:02)
[2018-12-03] MEDS: INSULIN GLARGINE,HUM.REC.ANLOG 1,000 UNIT/10 ML VIAL SUBCUT SCH (22:05)
[2018-12-04] MEDS: PIPERACILLIN SODIUM/TAZOBACTAM 3.375 GM in NORMAL SALINE 100 ML IV SCH ×3 (00:24→14:24)
[2018-12-04] MEDS: OXYCODONE-ACETAMINOPHEN 5-325 MG TABLET PO PRN ×2 (02:09→17:40)
[2018-12-04] MEDS ORDERED: IPRATROPIUM/ALBUTEROL 0.5-2.5 MG/3 ML AMPUL NEB PRN (02:34)
[2018-12-04] MEDS ORDERED: AZITHROMYCIN INJ 500 MG VIAL IV ONE (03:00)
[2018-12-04] MEDS ORDERED: AZITHROMYCIN 500 MG in DEXTROSE 5%-WATER 250 ML IV ONE (03:00)
[2018-12-04] MEDS: IPRATROPIUM/ALBUTEROL 0.5-2.5 MG/3 ML AMPUL NEB SCH ×4 (03:12→19:51)
[2018-12-04] MEDS: CHLORPHENIRAMINE MALEATE 4 MG TABLET PO SCH ×4 (03:14→22:54)
--- NOTE | 2018-12-04 03:39 | RADIOLOGY REPORT (SQ) ---
EXAM DESCRIPTION: XR CHEST 1 VIEW COMPLETED DATE/TME: 12/04/2018 00:00 CLINICAL HISTORY: 63 years Female, sob COMPARISON: 11/10/17 NUMBER OF VIEWS/TECHNIQUE: 1/AP FINDINGS: Adequate lung volume, mild interstitial markings with central predominance, prominent cardiac silhouette, and intact bony thorax. IMPRESSION: Mild interstitial markings. Differential diagnosis includes pulmonary edema, atypical pneumonitis, and chronic interstitial lung disease.
[2018-12-04] MEDS: NORMAL SALINE 1000 ML 1,000 ML IV PRN ×2 (05:41→23:02)
[2018-12-04 06:39] LABS: HEMATOCRIT 27.2 % (36.0-47.0); HEMOGLOBIN 9.1 g/dL (12.0-15.5); MEAN CORPUSCULAR HEMOGLOBIN 28.9 pg (27.0-33.4); MEAN CORPUSCULAR HGB CONC 33.4 g/dL (32.0-36.0); MEAN CORPUSCULAR VOLUME 87 fl (80-97); PLATELET COUNT 441 10^3/uL (150-450); RED BLOOD COUNT 3.14 10^6/uL (3.72-5.28); RED CELL DISTRIBUTION WIDTH 15.7 % (11.5-14.0); WHITE BLOOD COUNT 9.9 10^3/uL (4.0-10.5)
[2018-12-04 06:51] LABS: ANION GAP 9 (5-19); BLOOD UREA NITROGEN 14 mg/dL (7-20); CALCIUM 8.3 mg/dL (8.4-10.2); CARBON DIOXIDE 25 mmol/L (22-30); CHLORIDE 103 mmol/L (98-107); GLUCOSE 171 mg/dL (75-110); POTASSIUM 4.4 mmol/L (3.6-5.0); SODIUM 136.8 mmol/L (137-145)
[2018-12-04] MEDS: ACETAMINOPHEN 325 MG TABLET PO PRN (09:47)
[2018-12-04] MEDS: INSULIN LISPRO 100 UNIT/ML 3 ML VIAL SUBCUT SCH ×4 (09:49→22:53)
[2018-12-04] MEDS: FAMOTIDINE 20 MG TABLET PO SCH ×2 (09:50→22:53)
[2018-12-04] MEDS: METOPROLOL TARTRATE 25 MG TABLET PO SCH ×2 (09:50→22:55)
[2018-12-04] MEDS: FLUTICASONE NASAL SPRAY 50 MCG/SPRY 120 SPRAY/16 GM NASL SCH (09:50)
[2018-12-04] MEDS: PAROXETINE HCL 20 MG TABLET PO SCH (09:51)
[2018-12-04] MEDS: ENOXAPARIN SODIUM INJ 40 MG/0.4 ML DISP.SYRIN SUBCUT SCH (09:52)
[2018-12-04] MEDS ORDERED: MORPHINE SULFATE 10 MG/ML INJ IV ONE (10:00)
[2018-12-04] MEDS: LOSARTAN POTASSIUM 25 MG TABLET PO SCH (10:00)
--- NOTE | 2018-12-04 13:30 | PDOC PROGRESS REPORT ---
Subjective Progress Note for:: 12/04/18 Subjective:: pains at the AKA stump Reason For Visit: CELLULITIS, DRY GANGRENE R FOOT Physical Exam Vital Signs: Temp Pulse Resp BP Pulse Ox 97.4 F 67 18 114/54 L 99 12/04/18 08:00 12/04/18 08:02 12/04/18 08:02 12/04/18 08:00 12/04/18 08:02 Intake & Output 12/03/18 12/04/18 12/05/18 06:59 06:59 06:59 Intake Total 3400 2828 Output Total 875 650 Balance 2525 2178 Weight 41.2 kg 114.3 kg Exam: AKA stump looks good. No inflammation or drainage. Redressed Results Laboratory Results: 12/04/18 06:15 12/04/18 06:15 12/03/18 12/03/18 12/04/18 19:58 19:58 06:15 WBC 8.2 9.9 RBC 3.24 L 3.14 L Hgb 9.5 L D 9.1 L Hct 28.5 L 27.2 L MCV 88 87 MCH 29.3 28.9 MCHC 33.3 33.4 RDW 15.6 H 15.7 H Plt Count 392 441 Seg Neutrophils % 65.6 Lymphocytes % 20.6 Monocytes % 10.7 Eosinophils % 2.1 Basophils % 1.0 Absolute Neutrophils 5.4 Absolute Lymphocytes 1.7 Absolute Monocytes 0.9 Absolute Eosinophils 0.2 Absolute Basophils 0.1 Sodium 134.6 L Potassium 4.9 Chloride 104 Carbon Dioxide 25 Anion Gap 6 BUN 15 Creatinine 0.94 Est GFR ( Amer) > 60 Est GFR (Non-Af Amer) > 60 Glucose 200 H Calcium 8.6 Total Bilirubin 0.4 AST 12 L ALT 14 Alkaline Phosphatase 104 Total Protein 5.7 L Albumin 2.7 L 12/04/18 06:15 WBC RBC Hgb Hct MCV MCH MCHC RDW Plt Count Seg Neutrophils % Lymphocytes % Monocytes % Eosinophils % Basophils % Absolute Neutrophils Absolute Lymphocytes Absolute Monocytes Absolute Eosinophils Absolute Basophils Sodium 136.8 L Potassium 4.4 Chloride 103 Carbon Dioxide 25 Anion Gap 9 BUN 14 Creatinine 0.88 Est GFR ( Amer) > 60 Est GFR (Non-Af Amer) > 60 Glucose 171 H Calcium 8.3 L Total Bilirubin AST ALT Alkaline Phosphatase Total Protein Albumin Impressions: Chest X-Ray 12/04/18 00:00 IMPRESSION: Mild interstitial markings. Differential diagnosis includes pulmonary edema, atypical pneumonitis, and chronic interstitial lung disease. Assessment & Plan - Time Time Spent with patient: 15-24 minutes - Inpatient Certification Medical Necessity: Significant Comorbidiites Make Outpatient Treatment Too Risky, Need Close Monitoring Due to Risk of Patient Decompensation, Need for IV Antibiotics, Risk of Complication if Not Cared For in Hospital - Plan Summary Plan Summary: Needs PT re ordered and pt more accepting Will need Rehab placement. Ordered OK to D/C antibiotics anytime Will sign off. Call for any questions
--- NOTE | 2018-12-04 16:27 | PDOC PROGRESS REPORT ---
Subjective Progress Note for:: 12/04/18 Subjective:: I seen patient resting in bed. No significant event overnight. Morning patient reevaluated by Dr. Rey who recommended rehab placement. Physical therapist and discharge planners are consulted. Her antibiotics were discontinued since the septic focus has removed with the AKA. Reason For Visit: CELLULITIS, DRY GANGRENE R FOOT Physical Exam Vital Signs: Temp Pulse Resp BP Pulse Ox 97.4 F 63 15 99/53 L 97 12/04/18 12:42 12/04/18 14:07 12/04/18 14:07 12/04/18 12:42 12/04/18 14:07 Intake & Output 12/03/18 12/04/18 12/05/18 06:59 06:59 06:59 Intake Total 3400 2828 Output Total 875 650 Balance 2525 2178 Weight 41.2 kg 114.3 kg General appearance: PRESENT: no acute distress Mouth exam: PRESENT: moist Neck exam: ABSENT: carotid bruit, JVD, lymphadenopathy, thyromegaly Respiratory exam: PRESENT: clear to auscultation hattie. ABSENT: rales, rhonchi, wheezes Cardiovascular exam: PRESENT: RRR. ABSENT: diastolic murmur, rubs, systolic murmur GI/Abdominal exam: PRESENT: normal bowel sounds, soft. ABSENT: distended, guarding, mass, organolmegaly, rebound, tenderness Results Laboratory Results: 12/04/18 06:15 12/04/18 06:15 12/03/18 12/03/18 12/04/18 19:58 19:58 06:15 WBC 8.2 9.9 RBC 3.24 L 3.14 L Hgb 9.5 L D 9.1 L Hct 28.5 L 27.2 L MCV 88 87 MCH 29.3 28.9 MCHC 33.3 33.4 RDW 15.6 H 15.7 H Plt Count 392 441 Seg Neutrophils % 65.6 Lymphocytes % 20.6 Monocytes % 10.7 Eosinophils % 2.1 Basophils % 1.0 Absolute Neutrophils 5.4 Absolute Lymphocytes 1.7 Absolute Monocytes 0.9 Absolute Eosinophils 0.2 Absolute Basophils 0.1 Sodium 134.6 L Potassium 4.9 Chloride 104 Carbon Dioxide 25 Anion Gap 6 BUN 15 Creatinine 0.94 Est GFR ( Amer) > 60 Est GFR (Non-Af Amer) > 60 Glucose 200 H Calcium 8.6 Total Bilirubin 0.4 AST 12 L ALT 14 Alkaline Phosphatase 104 Total Protein 5.7 L Albumin 2.7 L 12/04/18 06:15 WBC RBC Hgb Hct MCV MCH MCHC RDW Plt Count Seg Neutrophils % Lymphocytes % Monocytes % Eosinophils % Basophils % Absolute Neutrophils Absolute Lymphocytes Absolute Monocytes Absolute Eosinophils Absolute Basophils Sodium 136.8 L Potassium 4.4 Chloride 103 Carbon Dioxide 25 Anion Gap 9 BUN 14 Creatinine 0.88 Est GFR ( Amer) > 60 Est GFR (Non-Af Amer) > 60 Glucose 171 H Calcium 8.3 L Total Bilirubin AST ALT Alkaline Phosphatase Total Protein Albumin Impressions: Chest X-Ray 12/04/18 00:00 IMPRESSION: Mild interstitial markings. Differential diagnosis includes pulmonary edema, atypical pneumonitis, and chronic interstitial lung disease. Assessment and Plan - Diagnosis (1) Acute blood loss anemia Is this a current diagnosis for this admission?: Yes Plan: Most probably bleeding from the surgical site. Patient transfused 2 units of blood. (2) Cellulitis/right diabetic foot ulcer Is this a current diagnosis for this admission?: Yes Plan: Patient is scheduled for right AKA. We will continue her antibiotics for 24 hours postop. (3) Type 2 diabetes mellitus Is this a current diagnosis for this admission?: Yes Plan: Continue current regimen and hemoglobin A1c to evaluate the status of her diabet es. (4) COPD (chronic obstructive pulmonary disease) Qualifiers: Emphysema type: unspecified Is this a current diagnosis for this admission?: Yes Plan: Continue as needed bronchodilator (5) Hypertension Qualifiers: Hypertension type: essential hypertension Qualified Code(s): I10 - Essential (primary) hypertension Is this a current diagnosis for this admission?: Yes Plan: Continue current regimen. (6) Hyperlipidemia Is this a current diagnosis for this admission?: Yes Plan: Continue current regimen. (7) Obesity (BMI 30-39.9) Is this a current diagnosis for this admission?: Yes Plan: Lifestyle modification advised.
[2018-12-04] MEDS: DOCUSATE SODIUM 100 MG CAPSULE PO SCH (17:10)
[2018-12-04] MEDS ORDERED: AZITHROMYCIN 500 MG in DEXTROSE 5%-WATER 250 ML IV SCH (22:00)
[2018-12-04] MEDS: INSULIN GLARGINE,HUM.REC.ANLOG 1,000 UNIT/10 ML VIAL SUBCUT SCH (22:52)
[2018-12-04] MEDS: TRAZODONE HCL 50 MG TABLET PO SCH (22:53)
[2018-12-05] MEDS: IPRATROPIUM/ALBUTEROL 0.5-2.5 MG/3 ML AMPUL NEB SCH ×4 (02:15→21:10)
[2018-12-05] MEDS: INSULIN LISPRO 100 UNIT/ML 3 ML VIAL SUBCUT SCH ×4 (08:00→23:31)
[2018-12-05] MEDS: OXYCODONE-ACETAMINOPHEN 5-325 MG TABLET PO PRN ×3 (09:32→23:30)
[2018-12-05] MEDS: LOSARTAN POTASSIUM 25 MG TABLET PO SCH (09:32)
[2018-12-05] MEDS: METOPROLOL TARTRATE 25 MG TABLET PO SCH ×2 (09:32→23:29)
[2018-12-05] MEDS: DOCUSATE SODIUM 100 MG CAPSULE PO SCH ×2 (09:32→18:41)
[2018-12-05] MEDS: ENOXAPARIN SODIUM INJ 40 MG/0.4 ML DISP.SYRIN SUBCUT SCH (09:33)
[2018-12-05] MEDS: FAMOTIDINE 20 MG TABLET PO SCH ×2 (09:33→23:30)
[2018-12-05] MEDS: FLUTICASONE NASAL SPRAY 50 MCG/SPRY 120 SPRAY/16 GM NASL SCH (09:34)
[2018-12-05] MEDS: PAROXETINE HCL 20 MG TABLET PO SCH (09:34)
[2018-12-05] MEDS: NORMAL SALINE 1000 ML 1,000 ML IV PRN (13:18)
--- NOTE | 2018-12-05 14:52 | PDOC PROGRESS REPORT ---
Subjective Progress Note for:: 12/05/18 Subjective:: No significant event overnight. Her IV antibiotics discontinued yesterday. Patient Reason For Visit: CELLULITIS, DRY GANGRENE R FOOT Physical Exam Vital Signs: Temp Pulse Resp BP Pulse Ox 98.3 F 67 18 131/67 H 99 12/05/18 11:57 12/05/18 11:57 12/05/18 11:57 12/05/18 11:57 12/05/18 11:57 Intake & Output 12/04/18 12/05/18 12/06/18 06:59 06:59 06:59 Intake Total 2828 1100 1000 Output Total 650 Balance 2178 1100 1000 Weight 114.3 kg 115.3 kg General appearance: PRESENT: no acute distress Eye exam: PRESENT: conjunctiva pink Neck exam: ABSENT: carotid bruit, JVD, lymphadenopathy, thyromegaly Respiratory exam: PRESENT: clear to auscultation hattie. ABSENT: rales, rhonchi, wheezes GI/Abdominal exam: PRESENT: normal bowel sounds, soft. ABSENT: distended, guarding, mass, organolmegaly, rebound, tenderness Neurological exam: PRESENT: alert, awake Results Laboratory Results: 12/04/18 06:15 12/04/18 06:15 11/30/18 12:00 Blood Blood Culture - Final NO GROWTH IN 5 DAYS 11/30/18 12:00 Blood Blood Culture - Final NO GROWTH IN 5 DAYS Impressions: Chest X-Ray 12/04/18 00:00 IMPRESSION: Mild interstitial markings. Differential diagnosis includes pulmonary edema, atypical pneumonitis, and chronic interstitial lung disease. Assessment and Plan - Diagnosis (1) Acute blood loss anemia Is this a current diagnosis for this admission?: Yes Plan: Most probably bleeding from the surgical site. Patient transfused 2 units of blood. (2) Cellulitis/right diabetic foot ulcer Is this a current diagnosis for this admission?: Yes Plan: Patient is scheduled for right AKA. We will continue her antibiotics for 24 hours postop. (3) Type 2 diabetes mellitus Is this a current diagnosis for this admission?: Yes Plan: Continue current regimen and hemoglobin A1c to evaluate the status of her diabetes. (4) COPD (chronic obstructive pulmonary disease) Qualifiers: Emphysema type: unspecified Is this a current diagnosis for this admission?: Yes Plan: Continue as needed bronchodilator (5) Hypertension Qualifiers: Hypertension type: essential hypertension Qualified Code(s): I10 - Essential (primary) hypertension Is this a current diagnosis for this admission?: Yes Plan: Continue current regimen. (6) Hyperlipidemia Is this a current diagnosis for this admission?: Yes Plan: Continue current regimen. (7) Obesity (BMI 30-39.9) Is this a current diagnosis for this admission?: Yes Plan: Lifestyle modification advised.
[2018-12-05] MEDS: TRAZODONE HCL 50 MG TABLET PO SCH (23:29)
[2018-12-05] MEDS: INSULIN GLARGINE,HUM.REC.ANLOG 1,000 UNIT/10 ML VIAL SUBCUT SCH (23:32)
[2018-12-06] MEDS: IPRATROPIUM/ALBUTEROL 0.5-2.5 MG/3 ML AMPUL NEB SCH ×4 (02:01→20:56)
[2018-12-06] MEDS: NORMAL SALINE 1000 ML 1,000 ML IV PRN ×2 (02:45→14:49)
[2018-12-06] MEDS: INSULIN LISPRO 100 UNIT/ML 3 ML VIAL SUBCUT SCH ×4 (08:40→22:43)
[2018-12-06] MEDS: PAROXETINE HCL 20 MG TABLET PO SCH (09:00)
[2018-12-06] MEDS: FAMOTIDINE 20 MG TABLET PO SCH ×2 (09:00→22:41)
[2018-12-06] MEDS: DOCUSATE SODIUM 100 MG CAPSULE PO SCH ×2 (09:00→16:41)
[2018-12-06] MEDS: LOSARTAN POTASSIUM 25 MG TABLET PO SCH (09:00)
[2018-12-06] MEDS: METOPROLOL TARTRATE 25 MG TABLET PO SCH ×2 (09:00→22:41)
[2018-12-06] MEDS: ENOXAPARIN SODIUM INJ 40 MG/0.4 ML DISP.SYRIN SUBCUT SCH (09:00)
[2018-12-06] MEDS: FLUTICASONE NASAL SPRAY 50 MCG/SPRY 120 SPRAY/16 GM NASL SCH (09:00)
[2018-12-06 11:49] LABS: HEMATOCRIT 30.7 % (36.0-47.0); HEMOGLOBIN 10.1 g/dL (12.0-15.5); MEAN CORPUSCULAR VOLUME 88 fl (80-97); PLATELET COUNT 421 10^3/uL (150-450); RED CELL DISTRIBUTION WIDTH 15.8 % (11.5-14.0); WHITE BLOOD COUNT 9.2 10^3/uL (4.0-10.5)
[2018-12-06] MEDS ORDERED: MORPHINE SULFATE 10 MG/ML INJ ONE (15:11)
[2018-12-06] MEDS ORDERED: FUROSEMIDE INJ/PF 100 MG/10 ML SDV IV ONE (15:15)
--- NOTE | 2018-12-06 15:49 | PDOC PROGRESS REPORT ---
Subjective Progress Note for:: 12/06/18 Subjective:: When I seen this patient this morning she is awake alert and is sleeping flat on her back. Later this afternoon she becomes tachypneic and her breathing is labored and abdominal. On auscultation she has diffuse wheezing and she is tight. 80 mg of Lasix and 2 mg of IV morphine she is given. Stat chest x-ray, ABG and EKG requested. Reason For Visit: CELLULITIS, DRY GANGRENE R FOOT Physical Exam Vital Signs: Temp Pulse Resp BP Pulse Ox 97.7 F 90 25 H 147/70 H 94 12/06/18 08:07 12/06/18 14:32 12/06/18 14:32 12/06/18 08:07 12/06/18 14:32 Intake & Output 12/05/18 12/06/18 12/07/18 06:59 06:59 06:59 Intake Total 1100 2000 946 Output Total 2000 Balance 1100 0 946 Weight 115.3 kg 115.1 kg General appearance: PRESENT: obese, severe distress Head exam: PRESENT: atraumatic Eye exam: PRESENT: conjunctiva pink Respiratory exam: PRESENT: decreased breath sounds, tachypnea, wheezes Cardiovascular exam: PRESENT: RRR. ABSENT: diastolic murmur, rubs, systolic murmur Neurological exam: PRESENT: alert, awake, oriented to time, oriented to situation Psychiatric exam: PRESENT: anxious Results Laboratory Results: 12/06/18 11:21 12/04/18 06:15 12/06/18 11:21 WBC 9.2 RBC 3.50 L Hgb 10.1 L Hct 30.7 L MCV 88 MCH 29.0 MCHC 33.0 RDW 15.8 H Plt Count 421 11/30/18 21:54 Blood Blood Culture - Final NO GROWTH IN 5 DAYS 11/30/18 21:49 Blood Blood Culture - Final NO GROWTH IN 5 DAYS 11/30/18 12:00 Blood Blood Culture - Final NO GROWTH IN 5 DAYS 11/30/18 12:00 Blood Blood Culture - Final NO GROWTH IN 5 DAYS Assessment and Plan - Diagnosis (1) Acute respiratory distress Is this a current diagnosis for this admission?: Yes Plan: Etiology is unclear. Possibly pulmonary edema. Patient has been on Lovenox to prevent PE. Start 80 mg Lasix and 2 mg IV morphine given. Chest x-ray, ABG and EKG are pending. (2) Acute blood loss anemia Is this a current diagnosis for this admission?: Yes Plan: Most probably bleeding from the surgical site. Patient transfused 2 units of blood. (3) Cellulitis/right diabetic foot ulcer Is this a current diagnosis for this admission?: Yes Plan: Patient is scheduled for right AKA. We will continue her antibiotics for 24 hours postop. (4) Type 2 diabetes mellitus Is this a current diagnosis for this admission?: Yes Plan: Continue current regimen and hemoglobin A1c to evaluate the status of her diabetes. (5) COPD (chronic obstructive pulmonary disease) Qualifiers: Emphysema type: unspecified Is this a current diagnosis for this admission?: Yes Plan: Continue as needed bronchodilator (6) Hypertension Qualifiers: Hypertension type: essential hypertension Qualified Code(s): I10 - Essential (primary) hypertension Is this a current diagnosis for this admission?: Yes Plan: Continue current regimen. (7) Hyperlipidemia Is this a current diagnosis for this admission?: Yes Plan: Continue current regimen. (8) Obesity (BMI 30-39.9) Is this a current diagnosis for this admission?: Yes Plan: Lifestyle modification advised.
[2018-12-06 15:50] LABS: ARTERIAL BLOOD BASE EXCESS 3.7 mmol/L; ARTERIAL BLOOD H2CO3 1.43 mmol/L (1.05-1.35); ARTERIAL BLOOD HCO3 29.1 mmol/L (20-24); ARTERIAL BLOOD O2 SATURATION 95.2 % (94-98); ARTERIAL BLOOD PCO2 47.4 mmHg (35-45); ARTERIAL BLOOD PH 7.41 (7.35-7.45); ARTERIAL BLOOD PO2 76.1 mmHg (80-100); ARTERIAL BLOOD TOTAL CO2 30.6 mmol/L (21-25)
[2018-12-06 15:51] LABS: ARTERIAL BLOOD FIO2 3L
--- NOTE | 2018-12-06 15:55 | RADIOLOGY REPORT (SQ) ---
EXAM DESCRIPTION: CHEST SINGLE VIEW COMPLETED DATE/TIME: 12/06/2018 3:23 pm REASON FOR STUDY: shortness of breath COMPARISON: 12/04/2018 FINDINGS: Single-view chest AP portable upright. Slightly improved interstitial prominence. No developing pleural effusion or pneumothorax. Stable c ardiomediastinal silhouette. TECHNICAL DOCUMENTATION: JOB ID: [id number] Reading location - IP/workstation name: [email or web address]
[2018-12-06] MEDS ORDERED: MORPHINE SULFATE 10 MG/ML INJ IV ONE (16:00)
[2018-12-06] MEDS: POLYETHYLENE GLYCOL 3350 POWDER 17 GM/1 PACKET PO SCH (16:40)
[2018-12-06] MEDS: TRAZODONE HCL 50 MG TABLET PO SCH (22:41)
[2018-12-06] MEDS: INSULIN GLARGINE,HUM.REC.ANLOG 1,000 UNIT/10 ML VIAL SUBCUT SCH (22:43)
[2018-12-06] MEDS: OXYCODONE-ACETAMINOPHEN 5-325 MG TABLET PO PRN (22:59)
--- NOTE | 2018-12-06 23:40 | EKG REPORT ---
SEVERITY:- ABNORMAL ECG - SINUS RHYTHM ANTERIOR INFARCT, AGE INDETERMINATE : Confirmed by: Torie Toribio 06-Dec-2018 23:39:59
[2018-12-07] MEDS: IPRATROPIUM/ALBUTEROL 0.5-2.5 MG/3 ML AMPUL NEB SCH ×4 (02:12→19:47)
[2018-12-07] MEDS: INSULIN LISPRO 100 UNIT/ML 3 ML VIAL SUBCUT SCH ×3 (08:22→17:11)
[2018-12-07] MEDS: LOSARTAN POTASSIUM 25 MG TABLET PO SCH (09:37)
[2018-12-07] MEDS: PAROXETINE HCL 20 MG TABLET PO SCH (09:37)
[2018-12-07] MEDS: ENOXAPARIN SODIUM INJ 40 MG/0.4 ML DISP.SYRIN SUBCUT SCH (09:37)
[2018-12-07] MEDS: DOCUSATE SODIUM 100 MG CAPSULE PO SCH ×2 (09:38→17:12)
[2018-12-07] MEDS: POLYETHYLENE GLYCOL 3350 POWDER 17 GM/1 PACKET PO SCH (09:38)
[2018-12-07] MEDS: FAMOTIDINE 20 MG TABLET PO SCH (09:38)
[2018-12-07] MEDS: METOPROLOL TARTRATE 25 MG TABLET PO SCH (09:38)
[2018-12-07] MEDS: FLUTICASONE NASAL SPRAY 50 MCG/SPRY 120 SPRAY/16 GM NASL SCH (09:38)
--- NOTE | 2018-12-07 11:39 | PDOC PROGRESS REPORT ---
Subjective Progress Note for:: 12/07/18 Subjective:: This is 63 years old female patient with multiple comorbidities including hypertension, hyperlipidemia, COPD, history of ischemic CVA, type 2 diabetes mellitus and history of non-Hodgkin's lymphoma proximal to hospital with chief complaint of right lower leg inflammation and swelling. Patient has long-standing large circumferential wound on her right heel. According to the patient, Dr. Guillen has started to discuss the possibility of right lower extr emity amputation due to poor wound healing. Dr. Zabala consulted and he agrees that the patient needs AKA of right lower extremity. She undergone right AKA on 12/02/18. Patient tolerated the procedure. Her postop is complicated by acute blood loss anemia for which transfused 2 units of packed RBC. Now her hemoglobin is stable. Yesterday patient had an episode of sudden onset shortness of breath and labored breathing which she responded well starts Lasix and IV morphine. This morning I seen patient propped up in bed. She is awake alert and oriented. Her shortness of breath has subsided. Patient is is awaiting rehab placement. Reason For Visit: CELLULITIS, DRY GANGRENE R FOOT Physical Exam Vital Signs: Temp Pulse Resp BP Pulse Ox 98.1 F 75 16 139/59 H 94 12/07/18 07:58 12/07/18 08:23 12/07/18 08:23 12/07/18 07:58 12/07/18 08:23 Intake & Output 12/06/18 12/07/18 12/08/18 06:59 06:59 06:59 Intake Total 1999 1810 Output Total 1999 6500 Balance 0 -4690 Weight 115.1 kg 111.5 kg General appearance: PRESENT: no acute distress Head exam: PRESENT: atraumatic, normocephalic Eye exam: PRESENT: conjunctiva pink Mouth exam: PRESENT: moist Neck exam: ABSENT: carotid bruit, JVD, lymphadenopathy, thyromegaly Respiratory exam: PRESENT: decreased breath sounds Cardiovascular exam: PRESENT: RRR. ABSENT: diastolic murmur, rubs, systolic murmur Extremities exam: PRESENT: other - Right AKA Neurological exam: PRESENT: alert, awake, oriented to time, oriented to situation Results Laboratory Results: 12/06/18 11:21 12/04/18 06:15 12/06/18 12/06/18 11:21 15:34 WBC 9.2 RBC 3.50 L Hgb 10.1 L Hct 30.7 L MCV 88 MCH 29.0 MCHC 33.0 RDW 15.8 H Plt Count 421 Carbonic Acid 1.43 H HCO3/H2CO3 Ratio 20:1 ABG pH 7.41 ABG pCO2 47.4 H ABG pO2 76.1 L ABG HCO3 29.1 H ABG O2 Saturation 95.2 ABG Base Excess 3.7 FiO2 3L Assessment and Plan - Diagnosis (1) Gangrene of right foot Is this a current diagnosis for this admission?: Yes Plan: Status is post AKA (2) Acute respiratory distress Is this a current diagnosis for this admission?: Yes Plan: Etiology is unclear. Possibly pulmonary edema. Patient has been on Lovenox to prevent PE. Start 80 mg Lasix and 2 mg IV morphine given. Chest x-ray, ABG and EKG are pending. (3) Acute blood loss anemia Is this a current diagnosis for this admission?: Yes Plan: Most probably bleeding from the surgical site. Patient transfused 2 units of blood. (4) Cellulitis/right diabetic foot ulcer Is this a current diagnosis for this admission?: Yes Plan: Patient is scheduled for right AKA. We will continue her antibiotics for 24 hours postop. (5) Type 2 diabetes mellitus Is this a current diagnosis for this admission?: Yes Plan: Continue current regimen and hemoglobin A1c to evaluate the status of her diabetes. (6) COPD (chronic obstructive pulmonary disease) Qualifiers: Emphysema type: unspecified Is this a current diagnosis for this admission?: Yes Plan: Continue as needed bronchodilator (7) Hypertension Qualifiers: Hypertension type: essential hypertension Qualified Code(s): I10 - Essential (primary) hypertension Is this a current diagnosis for this admission?: Yes Plan: Continue current regimen. (8) Hyperlipidemia Is this a current diagnosis for this admission?: Yes Plan: Continue current regimen. (9) Obesity (BMI 30-39.9) Is this a current diagnosis for this admission?: Yes Plan: Lifestyle modification advised.
--- NOTE | 2018-12-07 14:44 | PDOC TRANSFER SUMMARY ---
General - Admit/Disc Date/PCP Admission Date/Primary Care Provider: 11/30/18 12:22 Discharge Date: 12/07/18 - Discharge Diagnosis (1) Gangrene of right foot Is this a current diagnosis for this admission?: Yes (2) Acute respiratory distress Is this a current diagnosis for this admission?: Yes (3) Acute blood loss anemia Is this a current diagnosis for this admission?: Yes (4) Cellulitis/right diabetic foot ulcer Is this a current diagnosis for this admission?: Yes (5) Type 2 diabetes mellitus Is this a current diagnosis for this admission?: Yes (6) COPD (chronic obstructive pulmonary disease) Is this a current diagnosis for this admission?: Yes (7) Hypertension Is this a current diagnosis for this admission?: Yes (8) Hyperlipidemia Is this a current diagnosis for this admission?: Yes (9) Obesity (BMI 30-39.9) Is this a current diagnosis for this admission?: Yes - Additional Information Resuscitation Status: Full Code Home Medications: Aspirin [Ecotrin 81 mg EC Tablet] 81 mg PO DAILY 11/30/18 Ergocalciferol (Vitamin D2) [Drisdol 50,000 unit (1.25MG) Capsule] 50,000 unit PO TH@1000 11/30/18 Gabapentin [Neurontin 300 mg Capsule] 300 mg PO TID 11/30/18 Insulin Glargine,Hum.rec.anlog [Lantus Insulin 100 Unit/1 ml 10 ml] 40 units SQ QHS 11/30/18 Insulin Lispro [Humalog Kwikpen U-100] 30 units SQ MEALS 11/30/18 Losartan Potassium [Cozaar 25 mg Tablet] 25 mg PO DAILY 11/30/18 Metoprolol Tartrate [Lopressor 25 mg Tablet] 25 mg PO Q12 11/30/18 Paroxetine HCl [Paxil] 40 mg PO DAILY 11/30/18 Trazodone HCl [Desyrel] 150 mg PO QHS 11/30/18 History of Present Illness Admission Date/PCP: 11/30/18 12:22 History of Present Illness: MARIA DEL ROSARIO ANDERSEN is a 63 year old female with a PMH of diabetes type 2, CVA, HTN, HLD, non-Hodgkin's lymphoma. She presented to the emergency department at the request of her home health nurse due to erythema and swelling to the RLE, below the knee. The patient states that she noticed the erythema today. She denies pain, although states she has "very little feeling "in the leg. Of note, the patient has a large, circumferential wound to her right heel. Known history of dry gangrene. Currently seen on a weekly basis at the [facility] wound clinic. She is a patient of Dr. Yogesh Guillen. According to the patient, Dr. Guillen has started to discuss the possibility of RLE amputation due to poor wound healing. Laboratory studies reveal mild anemia, hyponatremia (130), and elevated lactate (2.5 mmol/L). Discussed the patient's case with surgery, Dr. Zabala. He agrees that the patient requires an [id number] amputation of the RLE. Plan to initiate broad-spectrum antibiotics, anticipate amputation in 48-72 hrs, admit to hospitalist service with surgery consulting. Hospital Course Hospital Course: This is 63 years old female patient with multiple comorbidities including hypertension, hyperlipidemia, COPD, history of ischemic CVA, type 2 diabetes mellitus and history of non-Hodgkin's lymphoma proximal to hospital with chief complaint of right lower leg inflammation and swelling. Patient has long-standing large circumferential wound on her right heel. According to the patient, Dr. Guillen has started to discuss the possibility of right lower extremity amputation due to poor wound healing. Dr. Zabala consulted and he agrees that the patient needs AKA of right lower extremity. She undergone right AKA on 12/02/18. Patient tolerated the procedure. Her postop is complicated by acute blood loss anemia for which transfused 2 units of packed RBC. Now her hemoglobin is stable. Yesterday patient had an episode of sudden onset shortness of breath and labored breathing which she responded well starts Lasix and IV morphine. This morning I seen patient propped up in bed. She is awake alert and oriented. Her shortness of breath has subsided. Patient is is awaiting rehab placement. Physical Exam Vital Signs: Temp Pulse Resp BP Pulse Ox 98.2 F 74 20 142/67 H 95 12/07/18 11:11 12/07/18 14:00 12/07/18 13:55 12/07/18 11:11 12/07/18 13:55 Intake & Output 12/06/18 12/07/18 12/08/18 06:59 06:59 06:59 Intake Total 1999 1809 Output Total 1999 6007 Balance 0 -4690 Weight 115.1 kg 111.5 kg General appearance: PRESENT: no acute distress Head exam: PRESENT: atraumatic Eye exam: PRESENT: conjunctiva pink Neck exam: ABSENT: carotid bruit, JVD, lymphadenopathy, thyromegaly Respiratory exam: PRESENT: decreased breath sounds Cardiovascular exam: PRESENT: RRR. ABSENT: diastolic murmur, rubs, systolic murmur Neurological exam: PRESENT: alert, awake, oriented to time, oriented to situation - Right AKA Results Laboratory Results: 12/06/18 11:21 12/04/18 06:15 12/06/18 15:34 Carbonic Acid 1.43 H HCO3/H2CO3 Ratio 20:1 ABG pH 7.41 ABG pCO2 47.4 H ABG pO2 76.1 L ABG HCO3 29.1 H ABG O2 Saturation 95.2 ABG Base Excess 3.7 FiO2 3L Qualifiers - * PATIENT BEING DISCHARGED WITH ANY OF THE FOLLOWING DIAGNOSIS: No
[2018-12-07] MEDS: OXYCODONE-ACETAMINOPHEN 5-325 MG TABLET PO PRN (14:57)
[2018-12-07 20:05] VITALS: BP 150/72
== END 2018-12-07 20:35 | DRG 240 ==
LOC: ER 11:46 → EH 12:22 → 5 18:03
PROVIDERS: ADMIT Hospitalist; ATTEND Hospitalist
PROC: 30233N1 Transfusion of Nonautologous Red Blood Cells into Peripheral Vein, Percutaneous Approach (ICD-10-PCS; 2018-12-02)
PROC: 0Y6C0Z3 Detachment at Right Upper Leg, Low, Open Approach (ICD-10-PCS; principal; 2018-12-02 12:15)
PROC: 30233N1 Transfusion of Nonautologous Red Blood Cells into Peripheral Vein, Percutaneous Approach (ICD-10-PCS; 2018-12-03)
DX: E11.52 Type 2 diabetes mellitus with diabetic peripheral angiopathy with gangrene (principal); I96 Gangrene, not elsewhere classified; G61.0 Guillain-Barre syndrome; D62 Acute posthemorrhagic anemia; E87.1 Hypo-osmolality and hyponatremia; L03.115 Cellulitis of right lower limb; L97.419 Non-pressure chronic ulcer of right heel and midfoot with unspecified severity; E11.621 Type 2 diabetes mellitus with foot ulcer; E66.01 Morbid (severe) obesity due to excess calories; J44.9 Chronic obstructive pulmonary disease, unspecified; I10 Essential (primary) hypertension; E78.5 Hyperlipidemia, unspecified; R06.03 Acute respiratory distress; M19.90 Unspecified osteoarthritis, unspecified site; Z68.30 Body mass index [BMI] 30.0-30.9, adult; Z79.82 Long term (current) use of aspirin; Z79.4 Long term (current) use of insulin; Z86.73 Personal history of transient ischemic attack (TIA), and cerebral infarction without residual deficits; Z85.72 Personal history of non-Hodgkin lymphomas; Z74.01 Bed confinement status; Z89.422 Acquired absence of other left toe(s); Z87.891 Personal history of nicotine dependence; Z82.49 Family history of ischemic heart disease and other diseases of the circulatory system; Z88.8 Allergy status to other drugs, medicaments and biological substances
CPT/HCPCS: 01232; 36415; 36430; 36600; 71045; 80048; 80053; 81001; 82803; 82962; 83036; 83605; 83735; 85025; 85027; 86850; 86900; 86901; 86920; 87040; 87086; 88307; 88311; 93005; 93010; 94640; 94667; 94668; 94799; 96374; 99291; J0330; J0456; J0744; J1650; J1815; J1940; J2250; J2270; J2543; J2704; J3010; J3370; J3490; J7030; J7060; J7620; P9016